=== PATIENT | female | born 1945 | race Caucasian/White ===

== ENCOUNTER 2017-03-24 17:46 | Emergency (ER) | payer MEDICARE ==
[~2017-03-24] VITALS: Ht 165.1 cm; Wt 44.5 kg
[~2017-03-24 17:46] MED LIST: ALPR0.5T PO; ATOR40TA59 PO; BUSPAR; CLOP75TA PO; COLE5PAC PO; COLESTIPOL PO; ESCITALOPRAM OX10 MG PO; HYDR-2758 PO; HYDR-2762 PO; LIPA1CAP12 PO; LIPA1CAP8 PO; NICO1PAT21 TP; PANT40TA5 PO; PROAIR HFA8.5 GM IH; SERT50TA PO; TIOT18CA IH
[2017-03-24] MEDS: fentaNYL PF VIAL 100 MCG/2 ML VIAL IV PRN ×3 (18:53→21:38)
[2017-03-24] MEDS ORDERED: IV NORMAL SALINE 500ML BAG 500 ML IV ONE (19:00)
[2017-03-24 19:06] LABS: BASO # 0.1 x10^3/uL (0.0-0.2); BASO % 1 % (0-3); EOS % 1 % (0-3); HEMATOCRIT 44.9 % (36.0-47.0); LYMPH # 1.8 x10^3/uL (1.0-4.8); LYMPH % 18 % (24-48); MEAN CORPUSCULAR HEMOGLOBIN 33 pg (25-35); MEAN CORPUSCULAR HGB CONC 34 g/dL (31-37); MEAN CORPUSCULAR VOLUME 98 fL (79-100); MONO % 5 % (0-9); NEUT % 75 % (31-73); PLATELET COUNT 274 x10^3/uL (140-400); RED BLOOD COUNT 4.56 x10^6/uL (3.50-5.40); RED CELL DISTRIBUTION WIDTH 13.6 % (11.5-14.5); WHITE BLOOD COUNT 10.4 x10^3/uL (4.0-11.0)
[2017-03-24] MEDS ORDERED: ONDANSETRON PF 4 MG/2 ML VIAL. IV ONE (19:15)
[2017-03-24 19:27] LABS: BILIRUBIN,URINE NEGATIVE (NEG); GLUCOSE,URINE NEGATIVE (NEG); NITRITE,URINE NEGATIVE (NEG); PROTEIN,URINE NEGATIVE (NEG-TRACE); UROBILINOGEN,URINE 0.2 mg/dL (0.2 mg/dL)
[2017-03-24 19:38] LABS: CALCIUM 9.3 mg/dL (8.5-10.1); CREATININE 1.2 mg/dL (0.6-1.0)
[2017-03-24 19:39] LABS: BACTERIA,URINE 0 /HPF (0-FEW); RBC,URINE 20-40 /HPF (0-2); SQUAMOUS EPITHELIAL CELL,UR OCC /LPF; WBC,URINE OCC /HPF (0-4)
[2017-03-24 19:49] LABS: ALBUMIN 4.5 g/dL (3.4-5.0); ALBUMIN/GLOBULIN RATIO 1.5 (1.0-1.7); TOTAL BILIRUBIN 0.6 mg/dL (0.2-1.0); TOTAL PROTEIN 7.6 g/dL (6.4-8.2)
--- NOTE | 2017-03-24 20:51 | RAD ---
EXAM: CT ABDOMEN/PELVIS WITHOUT CONTRAST. HISTORY: Right upper quadrant pain, nausea and vomiting. History of pancreatitis. TECHNIQUE: Computed tomography of the abdomen and pelvis was performed without intravenous contrast. COMPARISON: April 16, 2016. FINDINGS: Lung windows through the visualized portions of the bases reveal severe centrilobular emphysema. Bone windows reveal no suspicious lesions. There is a mild inferior endplate compression deformity at L4, likely chronic. The gallbladder is surgically absent. There is moderate intra and extrahepatic biliary dilatation. The common duct measures 1.1 cm. There is no clear distal obstructing lesion and this is stable. The pancreas is unremarkable without contrast. There is a small cyst in hepatic segment 4B. The spleen and adrenal glands are unremarkable. A small dense nodule laterally in the left kidney measures 4 mm and is likely a proteinaceous/hemorrhagic cyst. This is unchanged. Another small cyst at the right lower pole measures 1.6 cm. There is no hydronephrosis. There are diffuse severe atherosclerotic calcifications. There is infrarenal abdominal aortic ectasia without aneurysm. Maximum diameter is 2.2 cm. Stool throughout the colon is consistent with constipation. There is no obstruction. There are no pathologically enlarged lymph nodes. The uterus is either atrophic or surgically absent. There are changes of pelvic floor relaxation. IMPRESSION: 1. Stable moderate intra and extrahepatic biliary dilatation status post cholecystectomy. Correlate for cholestasis to assess significance. 2. Correlate for constipation. 3. Changes of pelvic floor relaxation. 4. Severe centrilobular emphysema. *One or more of the following individualized dose reduction techniques were utilized for this examination: 1. Automated exposure control. 2. Adjustment of the mA and/or kV according to patient size. 3. Use of iterative reconstruction technique. Electronically signed by: Any Baumann MD (03/24/2017 8:48 PM) [facility]
--- NOTE | 2017-03-24 21:39 | RAD ---
Ultrasound of the right lower extremity arterial system HISTORY: Right leg pain. TECHNIQUE: Grayscale, color Doppler and duplex analysis. FINDINGS: All velocity measurements are in centimeters per second. Right common femoral artery measures 170 and deep femoral artery 74. Superficial femoral artery ranges from 113 through 131. Popliteal artery is 50. The runoff arteries range from 32-55. Biphasic waveforms are seen throughout. There is mild scattered plaquing. No high-grade luminal narrowing or occlusion is identified. IMPRESSION: Findings are compatible with at least mild atherosclerotic disease, but without evidence of occlusion or high-grade stenosis. Electronically signed by: Jose C Cowan MD (03/24/2017 9:36 PM) [place] [id number]
[2017-03-24] MEDS ORDERED: POLY17PO29 PO (22:25)
--- NOTE | 2017-03-24 22:26 | PHYS DOC ---
Past Medical History Past Medical History: Anxiety, Cancer, COPD, Pancreatitis Additional Past Medical Histor: colon spasms, uterine cancer Past Surgical History: Appendectomy, Cholecystectomy, Hysterectomy, Tonsillectomy Additional Past Surgical Histo: hemorrhoidectomy, left leg surgery Alcohol Use: None Drug Use: None Adult General Chief Complaint Chief Complaint: ABDOMINAL PAIN HPI HPI Patient is a 71 year old female who presents with abdominal pain & vomiting. Reports onset of symptoms today with upper abdominal pain & 4 episodes of vomiting. Denies fevers/chills, hematemesis, diarrhea, constipation, hematochezia/melena, dysuria/hematuria. She denies chest pain or shortness of breath. Also reports burning pain to her RLE with history of arterial stenting. She denies cold foot, numbness/weakness. History of pancreatitis & states this feels similar. History of cholecystectomy, appendectomy, hysterectomy. Denies EtOH. Review of Systems Review of Systems Constitutional: Denies fever or chills HENT: Denies nasal congestion or sore throat Respiratory: Denies cough or shortness of breath Cardiovascular: Denies chest pain or edema GI: Reports abdominal pain, nausea, vomiting, denies bloody stools or diarrhea : Denies dysuria or hematuria Musculoskeletal: Denies back pain, reports lower extremity pain. Integument: Denies rash or skin lesions Neurologic: Denies headache, focal weakness or sensory changes Current Medications Current Medications Current Medications Medications (Trade) Dose Ordered Sig/Tamiko Start Time Stop Time Status Last Admin Dose Admin Fentanyl Citrate (Fentanyl 2ml Vial) 50 mcg PRN Q15MIN PRN 03/24/17 18:45 03/24/17 23:00 DC 03/24/17 21:38 50 MCG Ondansetron HCl (Zofran) 4 mg 1X ONCE 03/24/17 19:15 03/24/17 19:25 DC 03/24/17 18:52 4 MG Sodium Chloride 500 ml @ 0 mls/hr 1X ONCE 03/24/17 19:00 03/24/17 19:25 DC 03/24/17 18:54 999 MLS/HR Allergies Allergies Allergies Coded Allergies Type Severity Reaction Last Updated Verified No Known Drug Allergies 10/06/14 No Physical Exam Physical Exam Constitutional: thin, frail, no acute distress, non-toxic appearance. HENT: Normocephalic, atraumatic, bilateral external ears normal, oropharynx dry , nose normal. Eyes: conjunctiva normal, no discharge. Neck: supple, no stridor. Cardiovascular: RRR, no murmurs, no edema. Lungs & Thorax: LCTAB, no wheezing, no respiratory distress. Abdomen: soft, epigastric tenderness without rebound/guarding, mild diffuse tenderness, no masses or pulsatile masses, nondistended. Skin: Warm, dry, no erythema, no rash. Back: No tenderness. Extremities: No tenderness, no edema. RLE no swelling/deformity, no focal bony tenderness, intact ROM to hip, knee, ankle, foot warm with cap refill < 2 sec, dp/pt palpable, sensation intact to foot. Neurologic: Alert and oriented X 3, no focal deficits noted. Psychologic: Affect normal, judgement normal, mood normal. Current Patient Data Vital Signs Vital Signs Date Time Temp Pulse Resp B/P (MAP) Pulse Ox O2 Delivery O2 Flow Rate FiO2 03/24/17 22:45 73 20 145/67 (93) 94 Room Air 03/24/17 18:30 98.2 98.2 Lab Values Laboratory Tests Test 03/24/17 18:40 03/24/17 19:15 White Blood Count 10.4 x10^3/uL (4.0-11.0) Red Blood Count 4.56 x10^6/uL (3.50-5.40) Hemoglobin 15.0 g/dL (12.0-15.5) Hematocrit 44.9 % (36.0-47.0) Mean Corpuscular Volume 98 fL (79-100) Mean Corpuscular Hemoglobin 33 pg (25-35) Mean Corpuscular Hemoglobin Concent 34 g/dL (31-37) Red Cell Distribution Width 13.6 % (11.5-14.5) Platelet Count 274 x10^3/uL (140-400) Neutrophils (%) (Auto) 75 % (31-73) H Lymphocytes (%) (Auto) 18 % (24-48) L Monocytes (%) (Auto) 5 % (0-9) Eosinophils (%) (Auto) 1 % (0-3) Basophils (%) (Auto) 1 % (0-3) Neutrophils # (Auto) 7.8 x10^3uL (1.8-7.7) H Lymphocytes # (Auto) 1.8 x10^3/uL (1.0-4.8) Monocytes # (Auto) 0.5 x10^3/uL (0.0-1.1) Eosinophils # (Auto) 0.1 x10^3/uL (0.0-0.7) Basophils # (Auto) 0.1 x10^3/uL (0.0-0.2) Sodium Level 143 mmol/L (136-145) Potassium Level 4.0 mmol/L (3.5-5.1) Chloride Level 102 mmol/L (98-107) Carbon Dioxide Level 28 mmol/L (21-32) Anion Gap 13 (6-14) Blood Urea Nitrogen 21 mg/dL (7-20) H Creatinine 1.2 mg/dL (0.6-1.0) H Estimated GFR (Cockcroft-Gault) 44.0 BUN/Creatinine Ratio 18 (6-20) Glucose Level 109 mg/dL (70-99) H Calcium Level 9.3 mg/dL (8.5-10.1) Total Bilirubin 0.6 mg/dL (0.2-1.0) Aspartate Amino Transferase (AST) 19 U/L (15-37) Alanine Aminotransferase (ALT) 21 U/L (14-59) Alkaline Phosphatase 73 U/L (46-116) Troponin I Quantitative 0.026 ng/mL (0.000-0.055) Total Protein 7.6 g/dL (6.4-8.2) Albumin 4.5 g/dL (3.4-5.0) Albumin/Globulin Ratio 1.5 (1.0-1.7) Lipase 210 U/L (73-393) Urine Collection Type Unknown Urine Color Yellow Urine Clarity Clear Urine pH 6.0 Urine Specific [place] 1.025 Urine Protein Negative mg/dL (NEG-TRACE) Urine Glucose (UA) Negative mg/dL (NEG) Urine Ketones (Stick) Trace mg/dL (NEG) Urine Blood Moderate (NEG) Urine Nitrite Negative (NEG) Urine Bilirubin Negative (NEG) Urine Urobilinogen Dipstick 0.2 mg/dL (0.2 mg/dL) Urine Leukocyte Esterase Negative (NEG) Urine RBC 20-40 /HPF (0-2) Urine WBC Occ /HPF (0-4) Urine Squamous Epithelial Cells Occ /LPF Urine Bacteria 0 /HPF (0-FEW) Urine Hyaline Casts Occasional /HPF Urine Mucus Mod /LPF Laboratory Tests 03/24/17 18:40 Laboratory Tests 03/24/17 18:40 EKG EKG interpreted by me: NSR rate 66, no acute ST/T wave changes, normal intervals, no ectopy.[] Radiology/Procedures Radiology/Procedures PROCEDURE: DUPLEX LOWER EX ARTERIAL RIGHT Ultrasound of the right lower extremity arterial system HISTORY: Right leg pain. TECHNIQUE: Grayscale, color Doppler and duplex analysis. FINDINGS: All velocity measurements are in centimeters per second. Right common femoral artery measures 170 and deep femoral artery 74. Superficial femoral artery ranges from 113 through 131. Popliteal artery is 50. The runoff arteries range from 32-55. Biphasic waveforms are seen throughout. There is mild scattered plaquing. No high-grade luminal narrowing or occlusion is identified. IMPRESSION: Findings are compatible with at least mild atherosclerotic disease, but without evidence of occlusion or high-grade stenosis. Electronically signed by: Jose C Cowan MD (03/24/2017 9:36 PM) [facility] DICTATED and SIGNED BY: JOSE C COWAN MD DATE: 03/24/172131[] Course & Med Decision Making Course & Med Decision Making Pertinent Labs and Imaging studies reviewed. (See chart for details) The patient presents with abdominal pain, vomiting, lower extremity pain. Gave IV fluids, antiemetic, pain medication. She felt better & requested discharge home. Her labs showed no obvious acute abnormality. CT showed constipation & chronic biliary changes. Discussed results extensively, due to severity of her symptoms at time of presentation & advanced age, I offered admission to evaluate for possible serious cause of her symptoms not identified on initial workup. She stated she felt much better & requested discharge home. She does not want to be admitted, understands possible risk of undiagnosed condition or worsening condition. She understands risks & still wants to go home, plans to call PCP in the morning for follow up appointment. Gave prescriptions for zofran & miralax. Recommend rest, PO hydration with small sips of clear liquids , come back for high fever, severe pain, uncontrolled vomiitng, any otherwise worsening condition. Discharged home in stable & improved condition. [] Dragon Disclaimer Dragon Disclaimer This electronic medical record was generated, in whole or in part, using a voice recognition dictation system. Departure Departure Impression: Primary Impression: Abdominal pain Additional Impressions: Constipation Nausea & vomiting Lower extremity pain Disposition: HOME, SELF-CARE Condition: STABLE Referrals: GEETA REES Jr, MD (PCP) Patient Instructions: Abdominal Pain, [id number], Constipation, Adult, Easy- to-Read Additional Instructions: You were seen in the emergency department today for abdominal pain. Your CT shows constipation. Please take the prescribed medication to have a bowel movement. Follow-up as soon as possible with primary care physician. Return to the emergency department for high fever, severe pain, uncontrolled vomiting, otherwise worsening condition. Scripts Polyethylene Glycol 3350 (MIRALAX) 17 Gm Powd.pack 1 PACKET PO DAILY, #2 PACKET 1 Refill Prov: ABILIO NELSON MD 03/24/17 Problem Qualifiers ABILIO NELSON MD Mar 24, 2017 22:25
[2017-03-24 22:45] VITALS: BP 145/67
--- NOTE | 2017-03-25 06:07 | EKG ---
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
== END 2017-03-24 22:55 | disposition home or self-care (01) ==
LOC: ER 17:46
DX: K59.09 Other constipation (principal); M79.604 Pain in right leg; F41.9 Anxiety disorder, unspecified; J44.9 Chronic obstructive pulmonary disease, unspecified; Z90.49 Acquired absence of other specified parts of digestive tract; Z90.710 Acquired absence of both cervix and uterus
CPT/HCPCS: 36415; 74176; 80053; 81001; 83690; 84484; 85027; 93005; 93926; 96374; 96375; 96376; 99285; J2405; J3010; J7040

== ENCOUNTER 2017-06-01 15:52 | Emergency (ER) | payer MEDICARE ==
[~2017-06-01] VITALS: Ht 165.1 cm; Wt 40.8 kg
[~2017-06-01 15:52] MED LIST changes: +POLY17PO29 PO
--- NOTE | 2017-06-01 16:11 | PHYS DOC ---
Past Medical History Past Medical History: Anxiety, Cancer, COPD, Pancreatitis Additional Past Medical Histor: colon spasms, uterine cancer Past Surgical History: Appendectomy, Cholecystectomy, Hysterectomy, Tonsillectomy Additional Past Surgical Histo: hemorrhoidectomy, left leg surgery Alcohol Use: None Drug Use: None Adult General Chief Complaint Chief Complaint: ABDOMINAL PAIN HPI HPI Patient is a 71 year old female who presents with nausea, diarrhea, abdominal pain. She states this feels just like her pancreatitis and she's had in the past. She states this started about a week ago and today got severe. She states the pain is constant it is sharp and intense in her left abdominal area. She denies anything makes it better or worse. She states she's been taking hydrocodone without any relief. Review of Systems Review of Systems Constitutional: Denies fever or chills Eyes: Denies change in visual acuity, redness, or eye pain HENT: Denies nasal congestion or sore throat Respiratory: Denies cough or shortness of breath Cardiovascular: No additional information not addressed in HPI GI: Positive for abdominal pain, nausea, and diarrhea, denies vomiting, bloody stools : Denies dysuria or hematuria Musculoskeletal: Denies back pain or joint pain Integument: Denies rash or skin lesions Neurologic: Denies headache, focal weakness or sensory changes Endocrine: Denies polyuria or polydipsia Current Medications Current Medications Current Medications Medications (Trade) Dose Ordered Sig/Tamiko Start Time Stop Time Status Last Admin Dose Admin Fentanyl Citrate (Fentanyl 2ml Vial) 25 mcg PRN Q15MIN PRN 06/01/17 16:15 06/02/17 16:14 06/01/17 18:30 25 MCG Info (Do NOT chart on this entry -- for MONITORING) 1 each PRN DAILY PRN 06/01/17 18:00 06/03/17 17:59 Iohexol (Omnipaque 300 Mg/ml) 75 ml 1X ONCE 06/01/17 18:00 06/01/17 18:01 DC 06/01/17 18:01 60 ML Levofloxacin/ Dextrose 100 ml @ 100 mls/hr 1X ONCE 06/01/17 19:00 06/01/17 19:59 DC 06/01/17 19:29 100 MLS/HR Metronidazole 100 ml @ 100 mls/hr 1X ONCE 06/01/17 19:00 06/01/17 19:59 DC 06/01/17 19:29 100 MLS/HR Ondansetron HCl (Zofran) 4 mg 1X ONCE 06/01/17 17:15 06/01/17 17:16 DC 06/01/17 17:22 4 MG Sodium Chloride 500 ml @ 1,000 mls/hr Q30M 06/01/17 16:13 06/01/17 16:42 DC 06/01/17 17:21 1,000 MLS/HR Allergies Allergies Allergies Coded Allergies Type Severity Reaction Last Updated Verified No Known Drug Allergies 10/06/14 No Physical Exam Physical Exam Constitutional: Well developed, well nourished, no acute distress, non-toxic appearance. [] HENT: Normocephalic, atraumatic, bilateral external ears normal, oropharynx moist, no oral exudates, nose normal. [] Eyes: PERRLA, EOMI, conjunctiva normal, no discharge. [] Neck: Normal range of motion, no tenderness, supple, no stridor. [] Cardiovascular:Heart rate regular rhythm, no murmur [] Lungs & Thorax: Bilateral breath sounds clear to auscultation [] Abdomen: Bowel sounds normal, soft, tender palpation in the left upper quadrant and right lower quadrant, voluntary guarding noted, no masses, no pulsatile masses. [] Skin: Warm, dry, no erythema, no rash. [] Back: No tenderness, no CVA tenderness. [] Extremities: No tenderness, no cyanosis, no clubbing, ROM intact, no edema. [] Neurologic: Alert and oriented X 3, normal motor function, normal sensory function, no focal deficits noted. [] Psychologic: Affect normal, judgement normal, mood normal. [] Current Patient Data Vital Signs Vital Signs Date Time Temp Pulse Resp B/P (MAP) Pulse Ox O2 Delivery O2 Flow Rate FiO2 06/01/17 19:59 66 32 95/47 (63) 94 Room Air 06/01/17 16:00 98.3 98.3 Lab Values Laboratory Tests Test 06/01/17 17:12 06/01/17 19:00 White Blood Count 8.7 x10^3/uL (4.0-11.0) Red Blood Count 4.27 x10^6/uL (3.50-5.40) Hemoglobin 14.2 g/dL (12.0-15.5) Hematocrit 42.2 % (36.0-47.0) Mean Corpuscular Volume 99 fL (79-100) Mean Corpuscular Hemoglobin 33 pg (25-35) Mean Corpuscular Hemoglobin Concent 34 g/dL (31-37) Red Cell Distribution Width 13.0 % (11.5-14.5) Platelet Count 256 x10^3/uL (140-400) Neutrophils (%) (Auto) 67 % (31-73) Lymphocytes (%) (Auto) 25 % (24-48) Monocytes (%) (Auto) 6 % (0-9) Eosinophils (%) (Auto) 1 % (0-3) Basophils (%) (Auto) 1 % (0-3) Neutrophils # (Auto) 5.8 x10^3uL (1.8-7.7) Lymphocytes # (Auto) 2.2 x10^3/uL (1.0-4.8) Monocytes # (Auto) 0.5 x10^3/uL (0.0-1.1) Eosinophils # (Auto) 0.1 x10^3/uL (0.0-0.7) Basophils # (Auto) 0.1 x10^3/uL (0.0-0.2) Prothrombin Time 11.8 SEC (11.7-14.0) Prothrombin Time INR 0.9 (0.8-1.1) PTT 32 SEC (24-38) Sodium Level 140 mmol/L (136-145) Potassium Level 3.9 mmol/L (3.5-5.1) Chloride Level 103 mmol/L (98-107) Carbon Dioxide Level 31 mmol/L (21-32) Anion Gap 6 (6-14) Blood Urea Nitrogen 15 mg/dL (7-20) Creatinine 1.0 mg/dL (0.6-1.0) Estimated GFR (Cockcroft-Gault) 54.3 Glucose Level 95 mg/dL (70-99) Calcium Level 9.2 mg/dL (8.5-10.1) Total Bilirubin 0.4 mg/dL (0.2-1.0) Direct Bilirubin 0.1 mg/dL (0.0-0.2) Aspartate Amino Transferase (AST) 18 U/L (15-37) Alanine Aminotransferase (ALT) 18 U/L (14-59) Alkaline Phosphatase 68 U/L (46-116) Creatine Kinase 62 U/L (26-192) Creatine Kinase MB (Mass) 0.5 ng/mL (0.0-3.6) Creatine Kinase MB Relative Index 0.8 % (0-4) Total Protein 7.4 g/dL (6.4-8.2) Albumin 4.0 g/dL (3.4-5.0) Lipase 313 U/L (73-393) Urine Collection Type Unknown Urine Color Yellow Urine Clarity Clear Urine pH 6.5 Urine Specific [place] 1.025 Urine Protein Negative mg/dL (NEG-TRACE) Urine Glucose (UA) Negative mg/dL (NEG) Urine Ketones (Stick) Negative mg/dL (NEG) Urine Blood Moderate (NEG) Urine Nitrite Negative (NEG) Urine Bilirubin Negative (NEG) Urine Urobilinogen Dipstick 0.2 mg/dL (0.2 mg/dL) Urine Leukocyte Esterase Negative (NEG) Urine RBC 20-40 /HPF (0-2) Urine WBC Occ /HPF (0-4) Urine Squamous Epithelial Cells Occ /LPF Urine Bacteria 0 /HPF (0-FEW) Urine Hyaline Casts Few /HPF Urine Opiates Screen Pos (NEG) Urine Methadone Screen Neg (NEG) Urine Barbiturates Neg (NEG) Urine Phencyclidine Screen Neg (NEG) Urine Amphetamine/Methamphetamine Neg (NEG) Urine Benzodiazepines Screen Neg (NEG) Urine Cocaine Screen Neg (NEG) Urine Cannabinoids Screen Neg (NEG) Urine Ethyl Alcohol Neg (NEG) Laboratory Tests 06/01/17 17:12 Laboratory Tests 06/01/17 17:12 EKG EKG [] Radiology/Procedures Radiology/Procedures [facility] [address] [place] [address] IMAGING REPORT Signed PATIENT: CLAUDAI BAUTISTA ACCOUNT: [id number] : 1945 LOCATION: ER AGE: 71 SEX: F EXAM STATUS: REG ER ORD. PHYSICIAN: ANTONIO REARDON MD REASON: abd pain PROCEDURE: CT ABD PELV W/ IV CONTRST ONLY CT SCAN OF THE ABDOMEN AND PELVIS WITH IV CONTRAST. History: Right lower quadrant pain and nausea Comparison:March 24, 2017. Procedure: Contiguous axial images of the abdomen and pelvis were performed after the administration of 60 cc of Omnipaque 300 IV contrast and without oral contrast. CT Abdomen with contrast: Findings: Liver: The intrahepatic and extra hepatic biliary tree are mildly dilated, seen previously Spleen: Unremarkable Pancreas: Unremarkable Adrenal Glands: Unremarkable Kidneys: Small cysts There is no mass or lymphadenopathy. There is no free air. There is no free fluid. There is calcification of the aorta and great vessels without aneurysm. There is mild wall thickening of the splenic flexure of the colon without surrounding inflammation. CT Pelvis with Contrast: Findings: The urinary bladder appears normal. There is no free fluid. There is no lymphadenopathy. The appendix is not clearly identified although there is a small caliber loop of bowel medial to the cecum which could be a normal appendix. There is moderate wall thickening of the rectum. Impression: 1. Moderate wall thickening of the rectum could be secondary to colitis. An adenocarcinoma is not excluded. 2. Mild wall thickening of the splenic flexure of the colon is nonspecific and could be secondary to spasm or colitis. PQRS Compliance Statement: One or more of the following individualized dose reduction techniques were utilized for this examination: 1. Automated exposure control 2. Adjustment of the mA and/or kV according to patient size 3. Use of iterative reconstruction technique Electronically signed by: Dang Logan III, MD (06/01/2017 6:24 PM) [facility] DICTATED and SIGNED BY: DANG LOGAN III, MD DATE: 06/01/17 1814 CC: ANTONIO REARDON MD; GEETA REES Jr, MD ~ Impressions: Colitis Course & Med Decision Making Course & Med Decision Making Pertinent Labs and Imaging studies reviewed. (See chart for details) Patient's pain is under control and she states she feels better. CT scan shows colitis. We'll start with Levaquin and Flagyl the patient is requesting discharged home. She is to follow-up with primary care physician and outpatient and follow-up with GI. She's being discharged with Cipro Flagyl for the next 7 days. Being discharged with 10 tablets of [place] to be used when necessary pain. She is instructed to use these cautiously as it can hide her pain and delay her returning to ER. She states she understands not to overdo the pain meds. Return precautions given. She is agreeable plan being discharged in stable condition at this time. Dragon Disclaimer Dragon Disclaimer This electronic medical record was generated, in whole or in part, using a voice recognition dictation system. Departure Departure Impression: Primary Impression: Abdominal pain Disposition: HOME, SELF-CARE Condition: STABLE Referrals: GEETA REES Jr, MD (PCP) LIZANDRO NSYDER MD Patient Instructions: Abdominal Pain Additional Instructions: You'll need to follow-up with GI. Your being discharged home with antibiotics for the next 7 days. You can also take pain meds which are narcotic in nature. Please don't drink alcohol or drive or taking these medicines. If you drink alcohol with these antibiotics and they will make you sick. You should be careful with pain meds as it can hide the fact that you getting worse. She developed fevers, worsening abdominal pain, nausea or other concerns please return back to emergency department. Scripts Hydrocodone/Apap 5-325 (NORCO 5-325 TABLET) 1 Each Tablet 1-2 TAB PO PRN Q6HRS Y for PAIN, #10 TAB 0 Refills Prov: ANTONIO REARDON MD 06/01/17 Metronidazole (FLAGYL) 500 Mg Tablet 1 TAB PO BID, #14 TAB Prov: ANTONIO REARDON MD 06/01/17 Ciprofloxacin Hcl (CIPRO) 500 Mg Tablet 1 TAB PO BID, #14 TAB Prov: ANTONIO REARDON MD 06/01/17 Problem Qualifiers Primary Impression: Abdominal pain Abdominal location: lower abdomen, unspecified Qualified Codes: R10.30 - Lower abdominal pain, unspecified ANTONIO REARDON MD Jun 01, 2017 16:11
[2017-06-01] MEDS ORDERED: IV NORMAL SALINE 1000ML BAG 500 ML IV SCH (16:13)
[2017-06-01] MEDS ORDERED: ONDANSETRON PF 4 MG/2 ML VIAL. IV ONE (17:15)
[2017-06-01 17:19] LABS: BASO # 0.1 x10^3/uL (0.0-0.2); BASO % 1 % (0-3); EOS % 1 % (0-3); HEMATOCRIT 42.2 % (36.0-47.0); HEMOGLOBIN 14.2 g/dL (12.0-15.5); LYMPH # 2.2 x10^3/uL (1.0-4.8); LYMPH % 25 % (24-48); MEAN CORPUSCULAR HEMOGLOBIN 33 pg (25-35); MEAN CORPUSCULAR HGB CONC 34 g/dL (31-37); MEAN CORPUSCULAR VOLUME 99 fL (79-100); MONO % 6 % (0-9); NEUT % 67 % (31-73); PLATELET COUNT 256 x10^3/uL (140-400); RED BLOOD COUNT 4.27 x10^6/uL (3.50-5.40); WHITE BLOOD COUNT 8.7 x10^3/uL (4.0-11.0)
[2017-06-01] MEDS: fentaNYL PF VIAL 100 MCG/2 ML VIAL IV PRN ×2 (17:23→18:30)
[2017-06-01 17:28] LABS: INR 0.9 (0.8-1.1); PROTHROMBIN TIME PATIENT 11.8 SEC (11.7-14.0)
[2017-06-01 17:32] LABS: CALCIUM 9.2 mg/dL (8.5-10.1); GFR 54.3; POTASSIUM 3.9 mmol/L (3.5-5.1)
[2017-06-01 17:36] LABS: DIRECT BILIRUBIN 0.1 mg/dL (0.0-0.2); TOTAL BILIRUBIN 0.4 mg/dL (0.2-1.0); TOTAL PROTEIN 7.4 g/dL (6.4-8.2)
[2017-06-01 17:43] LABS: CKMB MASS 0.5 ng/mL (0.0-3.6)
[2017-06-01] MEDS ORDERED: IOHEXOL 300 MG/ML 75 ML VIAL IV ONE (18:00)
[2017-06-01] MEDS ORDERED: CONTRAST GIVEN MC PRN (18:00)
--- NOTE | 2017-06-01 18:28 | RAD ---
CT SCAN OF THE ABDOMEN AND PELVIS WITH IV CONTRAST. History: Right lower quadrant pain and nausea Comparison:March 24, 2017. Procedure: Contiguous axial images of the abdomen and pelvis were performed after the administration of 60 cc of Omnipaque 300 IV contrast and without oral contrast. CT Abdomen with contrast: Findings: Liver: The intrahepatic and extra hepatic biliary tree are mildly dilated, seen previously Spleen: Unremarkable Pancreas: Unremarkable Adrenal Glands: Unremarkable Kidneys: Small cysts There is no mass or lymphadenopathy. There is no free air. There is no free fluid. There is calcification of the aorta and great vessels without aneurysm. There is mild wall thickening of the splenic flexure of the colon without surrounding inflammation. CT Pelvis with Contrast: Findings: The urinary bladder appears normal. There is no free fluid. There is no lymphadenopathy. The appendix is not clearly identified although there is a small caliber loop of bowel medial to the cecum which could be a normal appendix. There is moderate wall thickening of the rectum. Impression: 1. Moderate wall thickening of the rectum could be secondary to colitis. An adenocarcinoma is not excluded. 2. Mild wall thickening of the splenic flexure of the colon is nonspecific and could be secondary to spasm or colitis. PQRS Compliance Statement: One or more of the following individualized dose reduction techniques were utilized for this examination: 1. Automated exposure control 2. Adjustment of the mA and/or kV according to patient size 3. Use of iterative reconstruction technique Electronically signed by: Pedro Hilario III, MD (06/01/2017 6:24 PM) [id number]
[2017-06-01 19:27] LABS: BILIRUBIN,URINE NEGATIVE (NEG); GLUCOSE,URINE NEGATIVE (NEG); NITRITE,URINE NEGATIVE (NEG); PH,URINE 6.5; PROTEIN,URINE NEGATIVE (NEG-TRACE); UROBILINOGEN,URINE 0.2 mg/dL (0.2 mg/dL)
[2017-06-01] MEDS ORDERED: METR500T PO (19:28)
[2017-06-01] MEDS ORDERED: HYDR-971 PO (19:28)
[2017-06-01] MEDS ORDERED: CIPR500T94 PO (19:28)
[2017-06-01 19:29] LABS: BARBITURATES NEG (NEG); BENZODIAZEPINES NEG (NEG); CANNABINOIDS NEG (NEG); COCAINE NEG (NEG); METHADONE NEG (NEG); OPIATES POS (NEG); PHENCYCLIDINE NEG (NEG)
[2017-06-01 19:48] LABS: BACTERIA,URINE 0 /HPF (0-FEW); RBC,URINE 20-40 /HPF (0-2); SQUAMOUS EPITHELIAL CELL,UR OCC /LPF; WBC,URINE OCC /HPF (0-4)
[2017-06-01 20:30] VITALS: BP 91/49
== END 2017-06-01 20:44 | disposition home or self-care (01) ==
LOC: ER 15:52
DX: R10.9 Unspecified abdominal pain (principal); R11.0 Nausea; J44.9 Chronic obstructive pulmonary disease, unspecified; R19.7 Diarrhea, unspecified; Z90.49 Acquired absence of other specified parts of digestive tract; Z90.710 Acquired absence of both cervix and uterus
CPT/HCPCS: 36415; 74177; 80048; 80076; 80307; 81001; 82553; 83690; 85025; 85610; 85730; 96361; 96365; 96368; 96375; 99285; J1956; J2405; J3010; J3490; J7030; Q9967; G0479

== ENCOUNTER 2017-06-06 11:24 | Inpatient (IN) | payer MEDICARE ==
[~2017-06-06] VITALS: Ht 165.1 cm; Wt 40.8 kg
[~2017-06-06 11:24] MED LIST changes: +CIPR500T94 PO; +HYDR-971 PO; +METR500T PO
[2017-06-06] MEDS ORDERED: IV NORMAL SALINE 1000ML BAG 1,000 ML IV ONE (12:00)
[2017-06-06] MEDS ORDERED: ONDANSETRON PF 4 MG/2 ML VIAL. IV ONE (12:00)
[2017-06-06] MEDS: fentaNYL PF VIAL 100 MCG/2 ML VIAL IV PRN ×3 (12:07→13:07)
[2017-06-06 12:11] LABS: BILIRUBIN,URINE NEGATIVE (NEG); GLUCOSE,URINE NEGATIVE (NEG); NITRITE,URINE NEGATIVE (NEG); PH,URINE 6.5; PROTEIN,URINE NEGATIVE (NEG-TRACE); UROBILINOGEN,URINE 0.2 mg/dL (0.2 mg/dL)
[2017-06-06 12:12] LABS: BASO # 0.1 x10^3/uL (0.0-0.2); BASO % 1 % (0-3); EOS % 2 % (0-3); HEMATOCRIT 46.2 % (36.0-47.0); HEMOGLOBIN 15.4 g/dL (12.0-15.5); LYMPH # 1.9 x10^3/uL (1.0-4.8); LYMPH % 18 % (24-48); MEAN CORPUSCULAR HEMOGLOBIN 33 pg (25-35); MEAN CORPUSCULAR HGB CONC 33 g/dL (31-37); MEAN CORPUSCULAR VOLUME 100 fL (79-100); MONO % 6 % (0-9); NEUT % 72 % (31-73); PLATELET COUNT 286 x10^3/uL (140-400); RED BLOOD COUNT 4.64 x10^6/uL (3.50-5.40); RED CELL DISTRIBUTION WIDTH 13.5 % (11.5-14.5); WHITE BLOOD COUNT 10.6 x10^3/uL (4.0-11.0)
[2017-06-06 12:16] LABS: CALCIUM 9.9 mg/dL (8.5-10.1); CREATININE 1.1 mg/dL (0.6-1.0); GFR 48.7; POTASSIUM 3.8 mmol/L (3.5-5.1)
[2017-06-06 12:21] LABS: SQUAMOUS EPITHELIAL CELL,UR OCC /LPF; WBC,URINE OCC /HPF (0-4)
[2017-06-06 12:22] LABS: BACTERIA,URINE 0 /HPF (0-FEW); RBC,URINE >40 /HPF (0-2)
[2017-06-06 12:22] LABS: ALBUMIN 4.4 g/dL (3.4-5.0); ALBUMIN/GLOBULIN RATIO 1.3 (1.0-1.7); TOTAL BILIRUBIN 0.5 mg/dL (0.2-1.0); TOTAL PROTEIN 7.8 g/dL (6.4-8.2)
[2017-06-06] MEDS ORDERED: CONTRAST GIVEN MC PRN ×2 (12:30→15:00)
[2017-06-06] MEDS ORDERED: IOHEXOL 300 MG/ML 75 ML VIAL IV ONE (12:30)
--- NOTE | 2017-06-06 12:40 | EKG ---
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
[2017-06-06] MEDS ORDERED: ONDANSETRON PF 4 MG/2 ML VIAL. IV PRN ×2 (13:45→14:15)
[2017-06-06] MEDS ORDERED: CIPROFLOXACIN 400MG PREMIX 200 ML IV ONE (14:00)
--- NOTE | 2017-06-06 14:10 | PDOC2 ---
YANY ROSS 06/06/17 1410: GI CONSULT Reason For Consult: Abd pain HPI: HPI: 71 y/o female well-known to our service, discussed prior to admission w/ ER physician. PMH is significant for pancreatitis s/p cholecystectomy (w/ MRCP in 10/2015 showing no definite obstructive process or choledocholithiasis) and chronic mesenteric ischemia (w/ CTA abdomen in 10/2015 showing moderate-severe atherosclerosis in the aorta and narrowing in celiac artery and superior mesenteric artery) s/p celiac stenting in 10/2015. Diarrhea, weight loss, upper abdominal discomfort, and nausea have been improved w/ Creon 36,000u 2 pills TIC AC and cholestyramine powder 2 packets QHS. Last EGD and colonoscopy in 2012 - EGD was normal, random duodenal biopsy showed focal duodenitis and colonoscopy showed internal hemorrhoids and random biopsies were negative for pathology. Admitted this time w/ severe abd pain and vomiting. Was in the ER a few days ago, CT as below w/ possible wall thickening in rectum and hepatic flexure. Came back with worsening symptoms, uncontrolled pain. Started on IV atbx. PMH: PMH: HTN, HLD, COPD, uterine cancer, appendectomy, cholecystectomy, tonsillectomy, hysterectomy, hemorrhoidectomy, celiac artery stent, left leg fracture repair FH: Family History: No pertinent hx Social History: ALCOHOL: none Drugs: None ROS: GEN: Denies fevers, chills, sweats HEENT: Denies blurred vision, sore throat CV: Denies chest pain RESP: Denies shortness of air, cough GI: Per HPI : Denies hematuria, dysuria ENDO: Denies weight changes NEURO: Denies confusion, dizziness MSK: Denies weakness, joint pain/swelling SKIN: Denies jaundice, pruritus Vitals: Vitals: Vital Signs Date Time Temp Pulse Resp B/P (MAP) Pulse Ox O2 Delivery O2 Flow Rate FiO2 06/06/17 13:38 72 20 121/51 (74) 96 06/06/17 11:32 97.8 Room Air 97.8 Labs: Labs: Laboratory Tests Test 06/06/17 11:30 06/06/17 11:35 Urine Collection Type Void Urine Color Yellow Urine Clarity Clear Urine pH 6.5 Urine Specific [place] 1.010 Urine Protein Negative mg/dL (NEG-TRACE) Urine Glucose (UA) Negative mg/dL (NEG) Urine Ketones (Stick) Trace mg/dL (NEG) Urine Blood Moderate (NEG) Urine Nitrite Negative (NEG) Urine Bilirubin Negative (NEG) Urine Urobilinogen Dipstick 0.2 mg/dL (0.2 mg/dL) Urine Leukocyte Esterase Negative (NEG) Urine RBC >40 /HPF (0-2) Urine WBC Occ /HPF (0-4) Urine Squamous Epithelial Cells Occ /LPF Urine Bacteria 0 /HPF (0-FEW) White Blood Count 10.6 x10^3/uL (4.0-11.0) Red Blood Count 4.64 x10^6/uL (3.50-5.40) Hemoglobin 15.4 g/dL (12.0-15.5) Hematocrit 46.2 % (36.0-47.0) Mean Corpuscular Volume 100 fL (79-100) Mean Corpuscular Hemoglobin 33 pg (25-35) Mean Corpuscular Hemoglobin Concent 33 g/dL (31-37) Red Cell Distribution Width 13.5 % (11.5-14.5) Platelet Count 286 x10^3/uL (140-400) Neutrophils (%) (Auto) 72 % (31-73) Lymphocytes (%) (Auto) 18 % (24-48) Monocytes (%) (Auto) 6 % (0-9) Eosinophils (%) (Auto) 2 % (0-3) Basophils (%) (Auto) 1 % (0-3) Neutrophils # (Auto) 7.7 x10^3uL (1.8-7.7) Lymphocytes # (Auto) 1.9 x10^3/uL (1.0-4.8) Monocytes # (Auto) 0.6 x10^3/uL (0.0-1.1) Eosinophils # (Auto) 0.3 x10^3/uL (0.0-0.7) Basophils # (Auto) 0.1 x10^3/uL (0.0-0.2) Sodium Level 139 mmol/L (136-145) Potassium Level 3.8 mmol/L (3.5-5.1) Chloride Level 101 mmol/L (98-107) Carbon Dioxide Level 27 mmol/L (21-32) Anion Gap 11 (6-14) Blood Urea Nitrogen 12 mg/dL (7-20) Creatinine 1.1 mg/dL (0.6-1.0) Estimated GFR (Cockcroft-Gault) 48.7 BUN/Creatinine Ratio 11 (6-20) Glucose Level 111 mg/dL (70-99) Lactic Acid Level 2.0 mmol/L (0.4-2.0) Calcium Level 9.9 mg/dL (8.5-10.1) Total Bilirubin 0.5 mg/dL (0.2-1.0) Aspartate Amino Transf (AST/SGOT) 23 U/L (15-37) Alanine Aminotransferase (ALT/SGPT) 19 U/L (14-59) Alkaline Phosphatase 70 U/L (46-116) Total Protein 7.8 g/dL (6.4-8.2) Albumin 4.4 g/dL (3.4-5.0) Albumin/Globulin Ratio 1.3 (1.0-1.7) Lipase 235 U/L (73-393) Allergies: Coded Allergies: No Known Drug Allergies (Unverified , 10/06/14) Medications: Current Medications Medications (Trade) Dose Ordered Sig/Tamiko Route PRN Reason Start Time Stop Time Status Last Admin Dose Admin Sodium Chloride 1,000 ml @ 1,000 mls/hr 1X ONCE IV 06/06/17 12:00 06/06/17 12:59 DC 06/06/17 12:07 Ondansetron HCl (Zofran) 4 mg 1X ONCE IV 06/06/17 12:00 06/06/17 12:01 DC 06/06/17 12:07 Fentanyl Citrate (Fentanyl 2ml Vial) 50 mcg PRN Q15MIN PRN IV PAIN GREATER THAN 310 06/06/17 12:00 06/07/17 11:59 06/06/17 13:07 Metronidazole 100 ml @ 100 mls/hr 1X ONCE IV 06/06/17 13:45 06/06/17 14:44 06/06/17 13:54 Imaging: Imaging: CT A/P w/ IV contrast 06/01/17 Impression: 1. Moderate wall thickening of the rectum could be secondary to colitis. An adenocarcinoma is not excluded. 2. Mild wall thickening of the splenic flexure of the colon is nonspecific and could be secondary to spasm or colitis. PE: GEN: NAD, thin HEENT: Atraumatic, PERRL LUNGS: clear anteriorly HEART: RRR ABD: quiet, significant RLQ tenderness EXTREMITY: No edema SKIN: No rashes, no jaundice NEURO/PSYCH: A & O 3 A/P: A/P: Abd pain and vomiting w/ h/o mesenteric ischemia -s/p celiac stent 2015 -- Check CT angio. Will also ask surgery to see. ?VALVE INSPECTOR pump - will defer to primary D/w RN - give fluid bolus, proceed w/ CT. LIZANDRO SNYDER MD 06/06/17 1447: GI CONSULT Allergies: Coded Allergies: No Known Drug Allergies (Unverified , 10/06/14) YANY ROSS Jun 06, 2017 14:10 LIZANDRO SNYDER MD Jun 06, 2017 14:47
[2017-06-06] MEDS ORDERED: ALBUTEROL SULFATE 2.5 MG/3 ML NEBU. NEB PRN (14:15)
[2017-06-06] MEDS ORDERED: ACETAMINOPHEN 325 MG TABLET. PO PRN (14:15)
[2017-06-06] MEDS ORDERED: MORPHINE SULFATE 4 MG/ML DISP.SYRIN. IV PRN ×2 (14:15)
[2017-06-06] MEDS ORDERED: hydrALAZINE 20 MG/ML VIAL. IVP PRN (14:15)
[2017-06-06] MEDS ORDERED: traMADol 50 MG TABLET PO PRN (14:15)
[2017-06-06] MEDS ORDERED: DOCUSATE SODIUM 100 MG CAPSULE. PO PRN (14:15)
[2017-06-06] MEDS ORDERED: NICOTINE 21MG PATCH. TD PRN (14:15)
--- NOTE | 2017-06-06 14:16 | PDOC1 ---
History and Physical Date of Admission Date of Admission 06/06/17 Identification/Chief Complaint Chief Complaint abd pain Problems: Source Source: Chart review, Patient History of Present Illness History of Present Illness 71yo F, smoker, h/o mesenteric ischemia came to ER FOR ABD PAIN x2 weeks. Pt has h/o acute pancreatitis last year,but no abd pain this year till now. She has intermittent RLQ abd pain x2 weeks, lasting for hours usually, no radiation. Today gets worse, 06/11, with N/V non bloody / greenish x3d, normal BM. Pt was here 06/01, CT showed possible rectum colitis, pt dced home from ER with better pain, takes lortab 5mg prn, but today the pain is constant and pain meds not working, got fentanyl 50mcg x3 in ER, still very uncomfortable. when i asked her about plavix for her mesenteric ischemia, she said not remember and not taking it. she saw dr. Tate yesterday, no intervention done yet. she refused CT now, wants to see dr. Tate first. has subjective fever, T not known, no chills, cough ,sob, chest pain, use albuterol prn. Past Medical History Cardiovascular: Hyperlipidemia, Other Pulmonary: COPD GI: Other Heme/Onc: Cancer Infectious disease: No pertinent hx Endocrine: No pertinent hx Past Surgical History Past Surgical History: Appendectomy, Cholecystectomy, Tonsillectomy, Hysterectomy, Other Family History Family History: No Significant, Hypertension Social History ALCOHOL: none Drugs: None Current Medications Current Medications Current Medications Medications (Trade) Dose Ordered Sig/Tamiko Start Time Stop Time Status Last Admin Dose Admin Ciprofloxacin/ Dextrose 200 ml @ 200 mls/hr 1X ONCE 06/06/17 14:00 06/06/17 14:59 Fentanyl Citrate (Fentanyl 2ml Vial) 50 mcg PRN Q15MIN PRN 06/06/17 12:00 06/07/17 11:59 06/06/17 13:07 50 MCG Info (Do NOT chart on this entry -- for MONITORING) 1 each PRN DAILY PRN 06/06/17 12:30 06/08/17 12:29 Iohexol (Omnipaque 300 Mg/ml) 60 ml 1X ONCE 06/06/17 12:30 06/06/17 12:31 DC Metronidazole 100 ml @ 100 mls/hr 1X ONCE 06/06/17 13:45 06/06/17 14:44 06/06/17 13:54 100 MLS/HR Morphine Sulfate 2 mg PRN Q2HR PRN 06/06/17 13:45 06/07/17 13:44 Ondansetron HCl (Zofran) 4 mg PRN Q8HRS PRN 06/06/17 13:45 06/07/17 13:44 Sodium Chloride 1,000 ml @ 100 mls/hr Q10H 06/06/17 13:33 06/07/17 13:32 Allergies Allergies Allergies Coded Allergies Type Severity Reaction Last Updated Verified No Known Drug Allergies 10/06/14 No ROS Review of System CONSTITUTIONAL: No fever or chills EYES: No recent changes SKIN: No rash or itching CARDIOVASCULAR: No chest pain, syncope, palpitations, or edema RESPIRATORY: No SOB or cough GASTROINTESTINA +nausea, vomiting or abdominal pain NEUROLOGICAL: No headaches or weakness ENDOCRINE: No cold or heat intolerance GENITOURINARY: No urgency or frequency of urination MUSCULOSKELETAL: No back pain or joint pain LYMPHATICS: No enlarged lymph nodes PSYCHIATRIC: No anxiety or depression Physical Exam Physical Exam GEN.: No apparent distress. Alert and oriented. HEENT: Head is normocephalic, atraumatic NECK: Supple. LUNGS: bl decreased bs HEART: RRR, S1, S2 present. Peripheral pulses intact ABDOMEN: Soft, Positive bowel sounds. RLQ moderate tenderness, no rebound , + guarding. EXTREMITIES: Without any cyanosis. NEUROLOGIC: Normal speech, normal tone PSYCHIATRIC: Normal affect, normal mood. SKIN: No ulcerations Vitals Vitals Vital Signs Date Time Temp Pulse Resp B/P (MAP) Pulse Ox O2 Delivery O2 Flow Rate FiO2 06/06/17 13:38 72 20 121/51 (74) 96 06/06/17 11:32 97.8 Room Air 97.8 Labs Labs Laboratory Tests Test 06/06/17 11:30 06/06/17 11:35 Urine Collection Type Void Urine Color Yellow Urine Clarity Clear Urine pH 6.5 Urine Specific [place] 1.010 Urine Protein Negative mg/dL (NEG-TRACE) Urine Glucose (UA) Negative mg/dL (NEG) Urine Ketones (Stick) Trace mg/dL (NEG) Urine Blood Moderate (NEG) Urine Nitrite Negative (NEG) Urine Bilirubin Negative (NEG) Urine Urobilinogen Dipstick 0.2 mg/dL (0.2 mg/dL) Urine Leukocyte Esterase Negative (NEG) Urine RBC >40 /HPF (0-2) Urine WBC Occ /HPF (0-4) Urine Squamous Epithelial Cells Occ /LPF Urine Bacteria 0 /HPF (0-FEW) White Blood Count 10.6 x10^3/uL (4.0-11.0) Red Blood Count 4.64 x10^6/uL (3.50-5.40) Hemoglobin 15.4 g/dL (12.0-15.5) Hematocrit 46.2 % (36.0-47.0) Mean Corpuscular Volume 100 fL (79-100) Mean Corpuscular Hemoglobin 33 pg (25-35) Mean Corpuscular Hemoglobin Concent 33 g/dL (31-37) Red Cell Distribution Width 13.5 % (11.5-14.5) Platelet Count 286 x10^3/uL (140-400) Neutrophils (%) (Auto) 72 % (31-73) Lymphocytes (%) (Auto) 18 % (24-48) Monocytes (%) (Auto) 6 % (0-9) Eosinophils (%) (Auto) 2 % (0-3) Basophils (%) (Auto) 1 % (0-3) Neutrophils # (Auto) 7.7 x10^3uL (1.8-7.7) Lymphocytes # (Auto) 1.9 x10^3/uL (1.0-4.8) Monocytes # (Auto) 0.6 x10^3/uL (0.0-1.1) Eosinophils # (Auto) 0.3 x10^3/uL (0.0-0.7) Basophils # (Auto) 0.1 x10^3/uL (0.0-0.2) Sodium Level 139 mmol/L (136-145) Potassium Level 3.8 mmol/L (3.5-5.1) Chloride Level 101 mmol/L (98-107) Carbon Dioxide Level 27 mmol/L (21-32) Anion Gap 11 (6-14) Blood Urea Nitrogen 12 mg/dL (7-20) Creatinine 1.1 mg/dL (0.6-1.0) Estimated GFR (Cockcroft-Gault) 48.7 BUN/Creatinine Ratio 11 (6-20) Glucose Level 111 mg/dL (70-99) Lactic Acid Level 2.0 mmol/L (0.4-2.0) Calcium Level 9.9 mg/dL (8.5-10.1) Total Bilirubin 0.5 mg/dL (0.2-1.0) Aspartate Amino Transf (AST/SGOT) 23 U/L (15-37) Alanine Aminotransferase (ALT/SGPT) 19 U/L (14-59) Alkaline Phosphatase 70 U/L (46-116) Total Protein 7.8 g/dL (6.4-8.2) Albumin 4.4 g/dL (3.4-5.0) Albumin/Globulin Ratio 1.3 (1.0-1.7) Lipase 235 U/L (73-393) Laboratory Tests Test 06/06/17 11:30 06/06/17 11:35 Urine Collection Type Void Urine Color Yellow Urine Clarity Clear Urine pH 6.5 Urine Specific [place] 1.010 Urine Protein Negative mg/dL (NEG-TRACE) Urine Glucose (UA) Negative mg/dL (NEG) Urine Ketones (Stick) Trace mg/dL (NEG) Urine Blood Moderate (NEG) Urine Nitrite Negative (NEG) Urine Bilirubin Negative (NEG) Urine Urobilinogen Dipstick 0.2 mg/dL (0.2 mg/dL) Urine Leukocyte Esterase Negative (NEG) Urine RBC >40 /HPF (0-2) Urine WBC Occ /HPF (0-4) Urine Squamous Epithelial Cells Occ /LPF Urine Bacteria 0 /HPF (0-FEW) White Blood Count 10.6 x10^3/uL (4.0-11.0) Red Blood Count 4.64 x10^6/uL (3.50-5.40) Hemoglobin 15.4 g/dL (12.0-15.5) Hematocrit 46.2 % (36.0-47.0) Mean Corpuscular Volume 100 fL (79-100) Mean Corpuscular Hemoglobin 33 pg (25-35) Mean Corpuscular Hemoglobin Concent 33 g/dL (31-37) Red Cell Distribution Width 13.5 % (11.5-14.5) Platelet Count 286 x10^3/uL (140-400) Neutrophils (%) (Auto) 72 % (31-73) Lymphocytes (%) (Auto) 18 % (24-48) Monocytes (%) (Auto) 6 % (0-9) Eosinophils (%) (Auto) 2 % (0-3) Basophils (%) (Auto) 1 % (0-3) Neutrophils # (Auto) 7.7 x10^3uL (1.8-7.7) Lymphocytes # (Auto) 1.9 x10^3/uL (1.0-4.8) Monocytes # (Auto) 0.6 x10^3/uL (0.0-1.1) Eosinophils # (Auto) 0.3 x10^3/uL (0.0-0.7) Basophils # (Auto) 0.1 x10^3/uL (0.0-0.2) Sodium Level 139 mmol/L (136-145) Potassium Level 3.8 mmol/L (3.5-5.1) Chloride Level 101 mmol/L (98-107) Carbon Dioxide Level 27 mmol/L (21-32) Anion Gap 11 (6-14) Blood Urea Nitrogen 12 mg/dL (7-20) Creatinine 1.1 mg/dL (0.6-1.0) Estimated GFR (Cockcroft-Gault) 48.7 BUN/Creatinine Ratio 11 (6-20) Glucose Level 111 mg/dL (70-99) Lactic Acid Level 2.0 mmol/L (0.4-2.0) Calcium Level 9.9 mg/dL (8.5-10.1) Total Bilirubin 0.5 mg/dL (0.2-1.0) Aspartate Amino Transf (AST/SGOT) 23 U/L (15-37) Alanine Aminotransferase (ALT/SGPT) 19 U/L (14-59) Alkaline Phosphatase 70 U/L (46-116) Total Protein 7.8 g/dL (6.4-8.2) Albumin 4.4 g/dL (3.4-5.0) Albumin/Globulin Ratio 1.3 (1.0-1.7) Lipase 235 U/L (73-393) VTE Prophylaxis Ordered VTE Prophylaxis Devices: Yes VTE Pharmacological Prophylaxi: Yes Assessment/Plan Assessment/Plan intractable RLQ abd pain with N/V h/o acute pancreatitis h/o chronic mesenteric ischemia s/p celiac stent and supposed to be on plavix copd stable tobaccoism CKD3 anxiety plan: dr. Tate consult pending pt refused ct at this time point, wants to see dr. Tate first need to verify home meds will add duoneb, albuterol prn npo for now LA 2 now, repeat tmr pain control ivf gi, dvt ppx talked to GI, will do CTA TODAY, may need sx consult. 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 ZIA WATSON MD Jun 06, 2017 14:16
--- NOTE | 2017-06-06 14:35 | PHYS DOC ---
Past Medical History Past Medical History: Anxiety, Cancer, COPD, Pancreatitis Additional Past Medical Histor: colon spasms, uterine cancer Past Surgical History: Appendectomy, Cholecystectomy, Hysterectomy, Tonsillectomy Additional Past Surgical Histo: hemorrhoidectomy, left leg surgery Alcohol Use: None Drug Use: None Adult General Chief Complaint Chief Complaint: ABDOMINAL PAIN HPI HPI Patient is a 71 year old female who presents with abdominal pain. The patient has 1 week history of right sided abdominal pain. She states she was seen here previously & found to have colitis, felt better so she was discharged home with antibiotics. She actually was able to follow up in the GI clinic with Dr. Duong where he had planned further workup based on possible malignancy associated with rectal thickening. She states her pain worsened today, she vomited 3x & was unable to tolerate oral intake. Denies fevers/chills, hematemesis, diarrhea, constipation, dysuria/hematuria. History of pancreatitis , uterine cancer, hysterectomy, appendectomy, cholecystectomy. PCP is Dr. Gannon. Review of Systems Review of Systems Constitutional: Denies fever or chills Eyes: Denies change in visual acuity HENT: Denies nasal congestion or sore throat Respiratory: Denies cough or shortness of breath Cardiovascular: Denies chest pain or edema GI: Reports abdominal pain, nausea, vomiting, denies bloody stools or diarrhea : Denies dysuria or hematuria Musculoskeletal: Denies back pain or joint pain Integument: Denies rash or skin lesions Neurologic: Denies headache, focal weakness or sensory changes Current Medications Current Medications Current Medications Medications (Trade) Dose Ordered Sig/Tamiko Start Time Stop Time Status Last Admin Dose Admin Fentanyl Citrate (Fentanyl 2ml Vial) 50 mcg PRN Q15MIN PRN 06/06/17 12:00 06/07/17 11:59 06/06/17 13:07 50 MCG Info (Do NOT chart on this entry -- for MONITORING) 1 each PRN DAILY PRN 06/06/17 12:30 06/08/17 12:29 Iohexol (Omnipaque 300 Mg/ml) 60 ml 1X ONCE 06/06/17 12:30 06/06/17 12:31 DC 06/06/17 15:38 60 ML Ondansetron HCl (Zofran) 4 mg 1X ONCE 06/06/17 12:00 06/06/17 12:01 DC 06/06/17 12:07 4 MG Sodium Chloride 1,000 ml @ 1,000 mls/hr 1X ONCE 06/06/17 12:00 06/06/17 12:59 DC 06/06/17 12:07 1,000 MLS/HR Allergies Allergies Allergies Coded Allergies Type Severity Reaction Last Updated Verified No Known Drug Allergies 10/06/14 No Physical Exam Physical Exam Constitutional: thin, frail, no acute distress, non-toxic appearance. HENT: Normocephalic, atraumatic, bilateral external ears normal, oropharynx moist, nose normal. Eyes: conjunctiva normal, no discharge. Neck: supple, no stridor. Cardiovascular: RRR, no murmurs, no edema. Lungs & Thorax: LCTAB, no wheezing, no respiratory distress. Abdomen: soft, RLQ tenderness with +rebound tenderness & guarding, no masses or pulsatile masses, nontender, nondistended. Skin: Warm, dry, no erythema, no rash. Back: No CVA tenderness. Extremities: No tenderness, no edema. Neurologic: Alert and oriented X 3, no focal deficits noted. Psychologic: Affect normal, judgement normal, mood normal. Current Patient Data Vital Signs Vital Signs Date Time Temp Pulse Resp B/P (MAP) Pulse Ox O2 Delivery O2 Flow Rate FiO2 06/06/17 12:38 72 20 131/45 (73) 95 06/06/17 11:32 97.8 Room Air 97.8 Lab Values Laboratory Tests Test 06/06/17 11:30 06/06/17 11:35 Urine Collection Type Void Urine Color Yellow Urine Clarity Clear Urine pH 6.5 Urine Specific [place] 1.010 Urine Protein Negative mg/dL (NEG-TRACE) Urine Glucose (UA) Negative mg/dL (NEG) Urine Ketones (Stick) Trace mg/dL (NEG) Urine Blood Moderate (NEG) Urine Nitrite Negative (NEG) Urine Bilirubin Negative (NEG) Urine Urobilinogen Dipstick 0.2 mg/dL (0.2 mg/dL) Urine Leukocyte Esterase Negative (NEG) Urine RBC >40 /HPF (0-2) Urine WBC Occ /HPF (0-4) Urine Squamous Epithelial Cells Occ /LPF Urine Bacteria 0 /HPF (0-FEW) White Blood Count 10.6 x10^3/uL (4.0-11.0) Red Blood Count 4.64 x10^6/uL (3.50-5.40) Hemoglobin 15.4 g/dL (12.0-15.5) Hematocrit 46.2 % (36.0-47.0) Mean Corpuscular Volume 100 fL (79-100) Mean Corpuscular Hemoglobin 33 pg (25-35) Mean Corpuscular Hemoglobin Concent 33 g/dL (31-37) Red Cell Distribution Width 13.5 % (11.5-14.5) Platelet Count 286 x10^3/uL (140-400) Neutrophils (%) (Auto) 72 % (31-73) Lymphocytes (%) (Auto) 18 % (24-48) L Monocytes (%) (Auto) 6 % (0-9) Eosinophils (%) (Auto) 2 % (0-3) Basophils (%) (Auto) 1 % (0-3) Neutrophils # (Auto) 7.7 x10^3uL (1.8-7.7) Lymphocytes # (Auto) 1.9 x10^3/uL (1.0-4.8) Monocytes # (Auto) 0.6 x10^3/uL (0.0-1.1) Eosinophils # (Auto) 0.3 x10^3/uL (0.0-0.7) Basophils # (Auto) 0.1 x10^3/uL (0.0-0.2) Sodium Level 139 mmol/L (136-145) Potassium Level 3.8 mmol/L (3.5-5.1) Chloride Level 101 mmol/L (98-107) Carbon Dioxide Level 27 mmol/L (21-32) Anion Gap 11 (6-14) Blood Urea Nitrogen 12 mg/dL (7-20) Creatinine 1.1 mg/dL (0.6-1.0) H Estimated GFR (Cockcroft-Gault) 48.7 BUN/Creatinine Ratio 11 (6-20) Glucose Level 111 mg/dL (70-99) H Lactic Acid Level 2.0 mmol/L (0.4-2.0) Calcium Level 9.9 mg/dL (8.5-10.1) Total Bilirubin 0.5 mg/dL (0.2-1.0) Aspartate Amino Transferase (AST) 23 U/L (15-37) Alanine Aminotransferase (ALT) 19 U/L (14-59) Alkaline Phosphatase 70 U/L (46-116) Total Protein 7.8 g/dL (6.4-8.2) Albumin 4.4 g/dL (3.4-5.0) Albumin/Globulin Ratio 1.3 (1.0-1.7) Lipase 235 U/L (73-393) Laboratory Tests 06/06/17 11:35 Laboratory Tests 06/06/17 11:35 EKG EKG Interpreted by me: Normal sinus rhythm rate 87, no acute ST or T wave changes, no ectopy, significant artifact[] Radiology/Procedures Radiology/Procedures [] Course & Med Decision Making Course & Med Decision Making Pertinent Labs and Imaging studies reviewed. (See chart for details) Patient presents with abdominal pain and vomiting. Vitals stable, not afebrile, tachycardic, or hypotensive. Gave IV fluids, Zofran, pain medication. She still had significant ongoing pain. Obtained labs which showed acute renal failure but otherwise no significant abnormality. She did not feel well and up to go home. Consulted Dr. Duong of GI; he agrees with plan for admission and IV antibiotics. Recommends IV fluid hydration and then he will order CT angiogram of her abdomen for further evaluation. Discussed with Dr. Peraza who agrees to admit to inpatient status. The patient is being admitted in guarded condition. [] Dragon Disclaimer Dragon Disclaimer This electronic medical record was generated, in whole or in part, using a voice recognition dictation system. Departure Departure Impression: Primary Impression: Abdominal pain Disposition: ADMITTED INPATIENT Admitting Physician: Hank Peraza Condition: STABLE Referrals: GEETA GANNON Jr, MD (PCP) ABILIO NELSON MD Jun 06, 2017 14:35
[2017-06-06] MEDS: MORPHINE SULFATE 4 MG/ML DISP.SYRIN. IV PRN ×4 (14:49→22:06)
[2017-06-06] MEDS ORDERED: IOHEXOL 350 MG/ML 100 ML VIAL. IV ONE (15:00)
[2017-06-06] MEDS ORDERED: ASPI-482 PO (15:02)
[2017-06-06 15:49] VITALS: BP 119/60
[2017-06-06] MEDS: IV NORMAL SALINE 1000ML BAG 1,000 ML IV SCH (16:04)
--- NOTE | 2017-06-06 16:28 | RAD ---
CTA of the abdomen and pelvis with contrast, 06/06/2017: History: Abdominal pain, mesenteric ischemia, celiac artery stent Multidetector CT imaging was performed following an IV bolus injection of iodinated contrast material. Multiplanar reconstructions were produced as well as 3-D volume rendered reconstructions of the major arteries. There is extensive generalized aortic calcific plaquing. There is a patent stent in the proximal celiac artery with its proximal end extending into the anterior aspect of the aorta. There is approximately 50% diameter narrowing of the proximal celiac artery just distal to the distal end of the stent. The celiac arterial branches are unremarkable. There is moderate calcific plaquing involving the proximal superior mesenteric artery. There is mild narrowing at its origin. There is moderate narrowing approximately 3 cm distal to its origin due to the calcific plaquing. There is considerable calcific plaquing at the origins of both main renal arteries with moderate associated luminal narrowing on the right and mild narrowing on the left. A small patent inferior mesenteric artery is identified. There is slight left lateral bulging of the infrarenal abdominal aorta the aorta measures only 2.3 cm in width at the level of this small bulge. There is moderate calcific plaquing in the iliac arteries bilaterally. There is mild associated luminal narrowing at several levels. No high-grade stenosis is seen. Incidental CT findings include the presence of moderate pulmonary emphysema and parenchymal scarring. Moderate common bile duct dilatation is probably secondary to the postcholecystectomy state. Small bilateral renal cysts are present. IMPRESSION: 1. Extensive calcific plaquing of the aorta and its branches. 2. 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 3. Patent celiac artery stent with mild luminal narrowing just distal to the distal end of the stent. 4. Moderate calcific plaquing and luminal narrowing of the proximal superior mesenteric artery. 5. Calcific plaquing and moderate luminal narrowing at the right renal artery origin. PQRS Compliance Statement: One or more of the following individualized dose reduction techniques were utilized for this examination: 1. Automated exposure control 2. Adjustment of the mA and/or kV according to patient size 3. Use of iterative reconstruction technique Note: Stenosis calculations for CTA, MRA and conventional angiography are based upon determination of the distal ICA diameter in accordance with the NASCET methodology. Stenosis calculations for Doppler studies are derived from validated velocity criteria which are known to correlate with NASCET methodology of determining stenosis.
[2017-06-06] MEDS ORDERED: FLU VACC QS2017-18 (36MOS+)/PF 0.5 ML SYRINGE. VAX IM ONE (19:15)
[2017-06-06] MEDS ORDERED: INFLUENZA VAX SCREEN BY RX. MC ONE (19:15)
[2017-06-06 19:44] VITALS: BP 109/46
[2017-06-06] MEDS: IPRATRPIUM/ALBUTEROL 0.5/2.5MG 3 ML NEBU. NEB SCH (20:16)
[2017-06-06] MEDS ORDERED: FAMOTIDINE 20 MG/2 ML VIAL IVP SCH (21:00)
[2017-06-06] MEDS: HEPARIN PF for SUB-Q USE 5,000 UNIT/0.5 ML VIAL. SQ SCH (22:15)
[2017-06-06 23:51] VITALS: BP 118/51
[2017-06-07] MEDS: MORPHINE SULFATE 4 MG/ML DISP.SYRIN. IV PRN ×2 (01:39→05:44)
[2017-06-07 03:00] VITALS: BP 118/57
[2017-06-07] MEDS: IV NORMAL SALINE 1000ML BAG 1,000 ML IV SCH ×2 (05:43→08:37)
[2017-06-07] MEDS: HEPARIN PF for SUB-Q USE 5,000 UNIT/0.5 ML VIAL. SQ SCH ×2 (05:51→14:37)
[2017-06-07 07:16] VITALS: BP 116/59
[2017-06-07 08:11] LABS: BASO # 0.1 x10^3/uL (0.0-0.2); BASO % 1 % (0-3); EOS % 4 % (0-3); HEMATOCRIT 43.7 % (36.0-47.0); HEMOGLOBIN 14.5 g/dL (12.0-15.5); LYMPH # 2.3 x10^3/uL (1.0-4.8); LYMPH % 22 % (24-48); MEAN CORPUSCULAR HEMOGLOBIN 33 pg (25-35); MEAN CORPUSCULAR HGB CONC 33 g/dL (31-37); MEAN CORPUSCULAR VOLUME 99 fL (79-100); MONO % 7 % (0-9); NEUT % 65 % (31-73); PLATELET COUNT 247 x10^3/uL (140-400); RED BLOOD COUNT 4.41 x10^6/uL (3.50-5.40); RED CELL DISTRIBUTION WIDTH 13.3 % (11.5-14.5); WHITE BLOOD COUNT 10.3 x10^3/uL (4.0-11.0)
[2017-06-07] MEDS: IPRATRPIUM/ALBUTEROL 0.5/2.5MG 3 ML NEBU. NEB SCH ×2 (08:14→12:39)
[2017-06-07 08:44] LABS: CALCIUM 8.6 mg/dL (8.5-10.1); CREATININE 1.1 mg/dL (0.6-1.0); GFR 48.7; POTASSIUM 4.5 mmol/L (3.5-5.1)
--- NOTE | 2017-06-07 08:45 | PDOC2 ---
MARYJANE ZELAYA SQL DATA ARCHITECT 06/07/17 0845: CONSULT Date of Consult Date of Consult DATE: 06/07/17 TIME: 08:37 Reason for Consult Reason for Consult: abd pain, hx of mesenteric ischemia Referring Physician Referring Physician: Dr Duong Identification/Chief Complaint Chief Complaint abdominal pain Problems: Source Source: Chart review, Patient History of Present Illness Reason for Visit: Abdominal pain, nausea, emesis for about a week. Last 3-4 days has been increasingly worse. Records reveal history of chronic mesenteric ischemia, required celiac stenting in 2016. She was on plavix, however at some point in last few months that was discontinued. Pain is lower abdomen, cramping and sharp. Hurts down to groin. No constipation or diarrhea Past Medical History Cardiovascular: Hyperlipidemia, Other Pulmonary: COPD GI: Other Heme/Onc: Cancer Infectious disease: No pertinent hx Endocrine: No pertinent hx Past Surgical History Past Surgical History: Appendectomy, Cholecystectomy, Tonsillectomy, Hysterectomy, Other Family History Family History: No Significant, Hypertension Social History <1 pack per day ALCOHOL: none Drugs: None Current Problem List Problem List Problems Medical Problems: (1) Abdominal pain Status: Acute Current Medications Current Medications Current Medications Sodium Chloride 1,000 ml @ 1,000 mls/hr 1X ONCE IV Last administered on 12:07; Start 06/06/17 at 12:00; Stop 06/06/17 at 12:59; Status DC Ondansetron HCl (Zofran) 4 mg 1X ONCE IV Last administered on 06/06/17 12:07 ; Start 06/06/17 at 12:00; Stop 06/06/17 at 12:01; Status DC Fentanyl Citrate (Fentanyl 2ml Vial) 50 mcg PRN Q15MIN PRN IV PAIN GREATER THAN 3/10 Last administered on 06/06/17 13:07; Start 06/06/17 at 12:00; Stop 06/07/17 at 11:59 Iohexol (Omnipaque 300 Mg/ml) 60 ml 1X ONCE IV Last administered on 06/06/17 15:38; Start 06/06/17 at 12:30; Stop 06/06/17 at 12:31; Status DC Info (Do NOT chart on this entry -- for MONITORING) 1 each PRN DAILY PRN MC SEE COMMENTS; Start 06/06/17 at 12:30; Stop 06/08/17 at 12:29 Ondansetron HCl (Zofran) 4 mg PRN Q8HRS PRN IV NAUSEA/VOMITING; Start 06/06/17 at 13:45; Stop 06/07/17 at 13:44 Morphine Sulfate 2 mg PRN Q2HR PRN IV PAIN Last administered on 06/07/17 05:44 ; Start 06/06/17 at 13:45; Stop 06/07/17 at 13:44 Sodium Chloride 1,000 ml @ 100 mls/hr Q10H IV Last administered on 06/07/17 05:43; Start 06/06/17 at 13:33; Stop 06/07/17 at 13:32 Ciprofloxacin/ Dextrose 200 ml @ 200 mls/hr 1X ONCE IV Last administered on 06/06/17 16:04; Start 06/06/17 at 14:00; Stop 06/06/17 at 14:59; Status DC Metronidazole 100 ml @ 100 mls/hr 1X ONCE IV Last administered on 06/06/17 13:54; Start 06/06/17 at 13:45; Stop 06/06/17 at 14:44; Status DC Nicotine (Nicoderm Cq 21mg) 1 patch PRN DAILY PRN TD SMOKING CESSATION Last administered on 06/06/17 16:03; Start 06/06/17 at 14:15 Sertraline HCl (Zoloft) 50 mg DAILY PO ; Start 06/07/17 at 09:00 Acetaminophen (Tylenol) 650 mg PRN Q6HRS PRN PO FEVER; Start 06/06/17 at 14:15 Ondansetron HCl (Zofran) 4 mg PRN Q6HRS PRN IV NAUSEA/VOMITING; Start 06/06/17 at 14:15 Morphine Sulfate 2 mg PRN Q2HR PRN IV PAIN; Start 06/06/17 at 14:15 Tramadol HCl (Ultram) 50 mg PRN Q6HRS PRN PO PAIN; Start 06/06/17 at 14:15 Hydralazine HCl (Apresoline) 10 mg PRN Q4HRS PRN IVP ELEVATED BP, SEE COMMENTS ; Start 06/06/17 at 14:15 Docusate Sodium (Colace) 100 mg PRN DAILY PRN PO CONSTIPATION; Start 06/06/17 at 14:15 Albuterol/ Ipratropium (Duoneb) 3 ml RTQID NEB Last administered on 06/07/17 08:14; Start 06/06/17 at 16:00 Albuterol Sulfate (Ventolin Neb Soln) 2.5 mg PRN Q2HR PRN NEB SHORTNESS OF BREATH; Start 06/06/17 at 14:15 Guaifenesin (Mucinex) 600 mg BID PO ; Start 06/06/17 at 14:30; Stop 06/06/17 at 21:00; Status DC Famotidine (Pepcid) 20 mg QHS IVP Last administered on 06/06/17 20:01; Start 06/06/17 at 21:00 Heparin Sodium (Porcine) (Heparin Sq) 5,000 unit Q8HRS SQ Last administered on 06/07/17 05:51; Start 06/06/17 at 22:00 Morphine Sulfate 4 mg PRN Q2HR PRN IV PAIN; Start 06/06/17 at 14:15 Iohexol (Omnipaque 350 Mg/ml) 75 ml 1X ONCE IV ; Start 06/06/17 at 15:00; Stop 06/06/17 at 15:01; Status DC Info (Do NOT chart on this entry -- for MONITORING) 1 each PRN DAILY PRN MC SEE COMMENTS; Start 06/06/17 at 15:00; Stop 06/08/17 at 14:59 Info (Do NOT chart on this placeholder) 1 each 1X ONCE MC ; Start 06/06/17 at 19:15; Stop 06/06/17 at 19:16; Status UNV Influenza Virus Vaccine Quadrival (Fluarix Quad 9156-4313 Syringe) 0.5 ml ONCE ONCE VAX IM ; Start 06/06/17 at 19:15; Stop 06/06/17 at 19:16; Status DC Active Scripts Active Beltrami 5-325 Tablet (Acetaminophen/Hydrocodone Bitart) 1 Each Tablet 1-2 Tab PO PRN Q6HRS PRN Flagyl (Metronidazole) 500 Mg Tablet 1 Tab PO BID Cipro (Ciprofloxacin Hcl) 500 Mg Tablet 1 Tab PO BID Miralax (Polyethylene Glycol 3350) 17 Gm Powd.pack 1 Packet PO DAILY Reported Aspir 81 (Aspirin) 81 Mg Tablet. 81 Mg PO Creon 36,000 Units Capsule (Lipase/Protease/Amylase) 1 Each Capsule. 2 Each PO TIDBFRMEAL NICODERM CQ 21mg (Nicotine) 1 Each Patch.td24 1 Patch TP DAILY Hydrocodone-Apap 5-325 (Hydrocodone Bit/Acetaminophen) 1 Each Tablet 1 Tab PO Q4HRS PRN Zoloft (Sertraline Hcl) 50 Mg Tablet 1 Tab PO DAILY Proair Hfa Inhaler (Albuterol Sulfate) 8.5 Gm Hfa.aer.ad 2 Puff IH BID Allergies Allergies: Coded Allergies: No Known Drug Allergies (Unverified , 10/06/14) ROS General: YES: Chills, Night Sweats PSYCHOLOGICAL ROS: No: Anxiety, Depression Eyes: No Blurry vision, No Double vision HEENT: No: Heacaches, Sore Throat Hematological and Lymphatic: YES: Bleeding Problems, No: Blood Clots Respiratory: No: Cough, Shortness of breath Cardiovascular: No Chest Pain, No Palpitations Gastrointestinal: Yes Other (see hpi) Genitourinary: No Dysuria, No Hematuria Musculoskeletal: No Joint Pain, No Muscle Pain Neurological: No Confusion, No Numbness/Tingling Skin: No Pruritus, No Rash Physical Exam General: Alert, Oriented X3, Cooperative, No acute distress HEENT: PERRLA, Mucous membr. moist/pink Lungs: Clear to auscultation, Normal air movement Heart: Regular rate, Normal S1, Normal S2, No murmurs Abdomen: Soft, Other (tenderness to RLQ) Extremities: No clubbing, No cyanosis Skin: No rashes, No breakdown Neuro: Normal speech, Sensation intact Psych/Mental Status: Mental status NL, Mood NL MUSCULOSKELETAL: No deformity, No swelling Vitals VITALS Vital Signs Date Time Temp Pulse Resp B/P (MAP) Pulse Ox O2 Delivery O2 Flow Rate FiO2 06/07/17 08:16 97 Room Air 06/07/17 07:16 97.6 69 15 116/59 (78) 97.6 Labs Labs Laboratory Tests Test 06/06/17 11:30 06/06/17 11:35 06/07/17 07:40 Urine Collection Type Void Urine Color Yellow Urine Clarity Clear Urine pH 6.5 Urine Specific [place] 1.010 Urine Protein Negative mg/dL (NEG-TRACE) Urine Glucose (UA) Negative mg/dL (NEG) Urine Ketones (Stick) Trace mg/dL (NEG) Urine Blood Moderate (NEG) Urine Nitrite Negative (NEG) Urine Bilirubin Negative (NEG) Urine Urobilinogen Dipstick 0.2 mg/dL (0.2 mg/dL) Urine Leukocyte Esterase Negative (NEG) Urine RBC >40 /HPF (0-2) Urine WBC Occ /HPF (0-4) Urine Squamous Epithelial Cells Occ /LPF Urine Bacteria 0 /HPF (0-FEW) White Blood Count 10.6 x10^3/uL (4.0-11.0) 10.3 x10^3/uL (4.0-11.0) Red Blood Count 4.64 x10^6/uL (3.50-5.40) 4.41 x10^6/uL (3.50-5.40) Hemoglobin 15.4 g/dL (12.0-15.5) 14.5 g/dL (12.0-15.5) Hematocrit 46.2 % (36.0-47.0) 43.7 % (36.0-47.0) Mean Corpuscular Volume 100 fL (79-100) 99 fL (79-100) Mean Corpuscular Hemoglobin 33 pg (25-35) 33 pg (25-35) Mean Corpuscular Hemoglobin Concent 33 g/dL (31-37) 33 g/dL (31-37) Red Cell Distribution Width 13.5 % (11.5-14.5) 13.3 % (11.5-14.5) Platelet Count 286 x10^3/uL (140-400) 247 x10^3/uL (140-400) Neutrophils (%) (Auto) 72 % (31-73) 65 % (31-73) Lymphocytes (%) (Auto) 18 % (24-48) 22 % (24-48) Monocytes (%) (Auto) 6 % (0-9) 7 % (0-9) Eosinophils (%) (Auto) 2 % (0-3) 4 % (0-3) Basophils (%) (Auto) 1 % (0-3) 1 % (0-3) Neutrophils # (Auto) 7.7 x10^3uL (1.8-7.7) 6.7 x10^3uL (1.8-7.7) Lymphocytes # (Auto) 1.9 x10^3/uL (1.0-4.8) 2.3 x10^3/uL (1.0-4.8) Monocytes # (Auto) 0.6 x10^3/uL (0.0-1.1) 0.8 x10^3/uL (0.0-1.1) Eosinophils # (Auto) 0.3 x10^3/uL (0.0-0.7) 0.4 x10^3/uL (0.0-0.7) Basophils # (Auto) 0.1 x10^3/uL (0.0-0.2) 0.1 x10^3/uL (0.0-0.2) Sodium Level 139 mmol/L (136-145) Potassium Level 3.8 mmol/L (3.5-5.1) Chloride Level 101 mmol/L (98-107) Carbon Dioxide Level 27 mmol/L (21-32) Anion Gap 11 (6-14) Blood Urea Nitrogen 12 mg/dL (7-20) Creatinine 1.1 mg/dL (0.6-1.0) Estimated GFR (Cockcroft-Gault) 48.7 BUN/Creatinine Ratio 11 (6-20) Glucose Level 111 mg/dL (70-99) Lactic Acid Level 2.0 mmol/L (0.4-2.0) Calcium Level 9.9 mg/dL (8.5-10.1) Total Bilirubin 0.5 mg/dL (0.2-1.0) Aspartate Amino Transf (AST/SGOT) 23 U/L (15-37) Alanine Aminotransferase (ALT/SGPT) 19 U/L (14-59) Alkaline Phosphatase 70 U/L (46-116) Total Protein 7.8 g/dL (6.4-8.2) Albumin 4.4 g/dL (3.4-5.0) Albumin/Globulin Ratio 1.3 (1.0-1.7) Lipase 235 U/L (73-393) Laboratory Tests Test 06/06/17 11:30 06/06/17 11:35 06/07/17 07:40 Urine Collection Type Void Urine Color Yellow Urine Clarity Clear Urine pH 6.5 Urine Specific [place] 1.010 Urine Protein Negative mg/dL (NEG-TRACE) Urine Glucose (UA) Negative mg/dL (NEG) Urine Ketones (Stick) Trace mg/dL (NEG) Urine Blood Moderate (NEG) Urine Nitrite Negative (NEG) Urine Bilirubin Negative (NEG) Urine Urobilinogen Dipstick 0.2 mg/dL (0.2 mg/dL) Urine Leukocyte Esterase Negative (NEG) Urine RBC >40 /HPF (0-2) Urine WBC Occ /HPF (0-4) Urine Squamous Epithelial Cells Occ /LPF Urine Bacteria 0 /HPF (0-FEW) White Blood Count 10.6 x10^3/uL (4.0-11.0) 10.3 x10^3/uL (4.0-11.0) Red Blood Count 4.64 x10^6/uL (3.50-5.40) 4.41 x10^6/uL (3.50-5.40) Hemoglobin 15.4 g/dL (12.0-15.5) 14.5 g/dL (12.0-15.5) Hematocrit 46.2 % (36.0-47.0) 43.7 % (36.0-47.0) Mean Corpuscular Volume 100 fL (79-100) 99 fL (79-100) Mean Corpuscular Hemoglobin 33 pg (25-35) 33 pg (25-35) Mean Corpuscular Hemoglobin Concent 33 g/dL (31-37) 33 g/dL (31-37) Red Cell Distribution Width 13.5 % (11.5-14.5) 13.3 % (11.5-14.5) Platelet Count 286 x10^3/uL (140-400) 247 x10^3/uL (140-400) Neutrophils (%) (Auto) 72 % (31-73) 65 % (31-73) Lymphocytes (%) (Auto) 18 % (24-48) 22 % (24-48) Monocytes (%) (Auto) 6 % (0-9) 7 % (0-9) Eosinophils (%) (Auto) 2 % (0-3) 4 % (0-3) Basophils (%) (Auto) 1 % (0-3) 1 % (0-3) Neutrophils # (Auto) 7.7 x10^3uL (1.8-7.7) 6.7 x10^3uL (1.8-7.7) Lymphocytes # (Auto) 1.9 x10^3/uL (1.0-4.8) 2.3 x10^3/uL (1.0-4.8) Monocytes # (Auto) 0.6 x10^3/uL (0.0-1.1) 0.8 x10^3/uL (0.0-1.1) Eosinophils # (Auto) 0.3 x10^3/uL (0.0-0.7) 0.4 x10^3/uL (0.0-0.7) Basophils # (Auto) 0.1 x10^3/uL (0.0-0.2) 0.1 x10^3/uL (0.0-0.2) Sodium Level 139 mmol/L (136-145) Potassium Level 3.8 mmol/L (3.5-5.1) Chloride Level 101 mmol/L (98-107) Carbon Dioxide Level 27 mmol/L (21-32) Anion Gap 11 (6-14) Blood Urea Nitrogen 12 mg/dL (7-20) Creatinine 1.1 mg/dL (0.6-1.0) Estimated GFR (Cockcroft-Gault) 48.7 BUN/Creatinine Ratio 11 (6-20) Glucose Level 111 mg/dL (70-99) Lactic Acid Level 2.0 mmol/L (0.4-2.0) Calcium Level 9.9 mg/dL (8.5-10.1) Total Bilirubin 0.5 mg/dL (0.2-1.0) Aspartate Amino Transf (AST/SGOT) 23 U/L (15-37) Alanine Aminotransferase (ALT/SGPT) 19 U/L (14-59) Alkaline Phosphatase 70 U/L (46-116) Total Protein 7.8 g/dL (6.4-8.2) Albumin 4.4 g/dL (3.4-5.0) Albumin/Globulin Ratio 1.3 (1.0-1.7) Lipase 235 U/L (73-393) Assessment/Plan Assessment/Plan Mesenteric ischemia, CTA reviewed abd pain, n/v will review with Dr Warren, I do not expect any surgical recs at this time, she is also not interested in any surgery APRIL WARREN MD 06/07/17 1107: CONSULT Allergies Allergies: Coded Allergies: No Known Drug Allergies (Unverified , 10/06/14) Assessment/Plan Assessment/Plan Patient seen and examined. Complains of abdominal pain. 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 Pain due to vascular insuffiency. Recommend vascular consult. MARYJANE ZELAYA APRN Jun 07, 2017 08:45 APRIL WARREN MD Jun 07, 2017 11:07
[2017-06-07] MEDS ORDERED: SERTRALINE 50 MG TABLET. PO SCH (09:00)
--- NOTE | 2017-06-07 10:36 | PDOC ---
Subjective: Subjective: Feels 100% better. Hungry. Wants to eat and go home. Objective: Objective: Reviewed surgery note. Vital Signs: Vital Signs Date Time Temp Pulse Resp B/P (MAP) Pulse Ox O2 Delivery O2 Flow Rate FiO2 06/07/17 08:25 Room Air 06/07/17 08:16 97 06/07/17 07:16 97.6 69 15 116/59 (78) 97.6 Labs: Laboratory Tests Test 06/06/17 11:30 06/06/17 11:35 06/07/17 07:40 06/07/17 07:50 Urine Collection Type Void Urine Color Yellow Urine Clarity Clear Urine pH 6.5 Urine Specific [place] 1.010 Urine Protein Negative mg/dL Urine Glucose (UA) Negative mg/dL Urine Ketones (Stick) Trace mg/dL Urine Blood Moderate Urine Nitrite Negative Urine Bilirubin Negative Urine Urobilinogen Dipstick 0.2 mg/dL Urine Leukocyte Esterase Negative Urine RBC >40 /HPF Urine WBC Occ /HPF Urine Squamous Epithelial Cells Occ /LPF Urine Bacteria 0 /HPF White Blood Count 10.6 x10^3/uL 10.3 x10^3/uL Red Blood Count 4.64 x10^6/uL 4.41 x10^6/uL Hemoglobin 15.4 g/dL 14.5 g/dL Hematocrit 46.2 % 43.7 % Mean Corpuscular Volume 100 fL 99 fL Mean Corpuscular Hemoglobin 33 pg 33 pg Mean Corpuscular Hemoglobin Concent 33 g/dL 33 g/dL Red Cell Distribution Width 13.5 % 13.3 % Platelet Count 286 x10^3/uL 247 x10^3/uL Neutrophils (%) (Auto) 72 % 65 % Lymphocytes (%) (Auto) 18 % 22 % Monocytes (%) (Auto) 6 % 7 % Eosinophils (%) (Auto) 2 % 4 % Basophils (%) (Auto) 1 % 1 % Neutrophils # (Auto) 7.7 x10^3uL 6.7 x10^3uL Lymphocytes # (Auto) 1.9 x10^3/uL 2.3 x10^3/uL Monocytes # (Auto) 0.6 x10^3/uL 0.8 x10^3/uL Eosinophils # (Auto) 0.3 x10^3/uL 0.4 x10^3/uL Basophils # (Auto) 0.1 x10^3/uL 0.1 x10^3/uL Sodium Level 139 mmol/L 141 mmol/L Potassium Level 3.8 mmol/L 4.5 mmol/L Chloride Level 101 mmol/L 107 mmol/L Carbon Dioxide Level 27 mmol/L 30 mmol/L Anion Gap 11 4 Blood Urea Nitrogen 12 mg/dL 8 mg/dL Creatinine 1.1 mg/dL 1.1 mg/dL Estimated GFR (Cockcroft-Gault) 48.7 48.7 BUN/Creatinine Ratio 11 Glucose Level 111 mg/dL 91 mg/dL Lactic Acid Level 2.0 mmol/L 1.2 mmol/L Calcium Level 9.9 mg/dL 8.6 mg/dL Total Bilirubin 0.5 mg/dL Aspartate Amino Transf (AST/SGOT) 23 U/L Alanine Aminotransferase (ALT/SGPT) 19 U/L Alkaline Phosphatase 70 U/L Total Protein 7.8 g/dL Albumin 4.4 g/dL Albumin/Globulin Ratio 1.3 Lipase 235 U/L Imaging: CTA A/P 06/06/17 IMPRESSION: 1. Extensive calcific plaquing of the aorta and its branches. 2. 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 3. Patent celiac artery stent with mild luminal narrowing just distal to the distal end of the stent. 4. Moderate calcific plaquing and luminal narrowing of the proximal superior mesenteric artery. 5. Calcific plaquing and moderate luminal narrowing at the right renal artery origin. PE: GEN: NAD LUNGS: clear HEART: RRR ABD: S/ND/NT NEURO/PSYCH: A & O 3 A/P: Abd pain and vomiting - resolved -mesenteric ischemia s/p celiac stent 2015 (off Plavix on ASA), CTA as above -surgery has seen, pt not interested in surgery -- D/w RN - try diet, if tolerates look toward DC. Continue regular GI meds (Creon, etc.) YANY ROSS Jun 07, 2017 10:35
[2017-06-07 11:24] VITALS: BP 136/42
[2017-06-07] MEDS ORDERED: LIPASE/PROTEAS/AMYLAS 10/34/55 CAPSULE.DR. PO SCH (12:00)
[2017-06-07] MEDS ORDERED: TRAM50TA PO (14:31)
[2017-06-07 15:23] VITALS: BP 134/56
--- NOTE | 2017-06-10 16:11 | DS ---
DATE OF DISCHARGE: 06/07/2017 CHIEF COMPLAINT: Abdominal pain. HOSPITAL COURSE: The patient is a 71-year-old smoker with a history of mesenteric ischemia who presented to the Emergency Room with a 2-week history of abdominal pain. She was admitted and placed on bowel rest. Both surgical as well as GI services saw the patient. Her symptoms actually improved completely by the 6th and the patient insisted on getting discharged to home. As she was able to tolerate food at this time, this was accommodated. DISCHARGE DATE: 06/07/2017. DISCHARGE DIAGNOSIS: Mesenteric ischemia. DISCHARGE DISPOSITION: To home. DISCHARGE CONDITION: Improved. DISCHARGE MEDICATIONS: Please refer to MAR. DISCHARGE INSTRUCTIONS: The patient will follow up with PCP in 2 weeks. MO CHAN MD DR: UR/nts JOB#: [id number] / [id number] GEETA Alfonso MD MTDD
[2017-09-05] MEDS ORDERED: HYDR-2758 PO (12:25)
== END 2017-06-07 15:45 | disposition home or self-care (01) | DRG 394 ==
LOC: ER 11:24 → 6 SOUTH 12:57
PROVIDERS: ADMIT Internal Medicine; ATTEND Internal Medicine
DX: K55.059 Acute (reversible) ischemia of intestine, part and extent unspecified (principal); R64 Cachexia; J44.9 Chronic obstructive pulmonary disease, unspecified; N18.3 Chronic kidney disease, stage 3 (moderate); Z68.1 Body mass index [BMI] 19.9 or less, adult; I12.9 Hypertensive chronic kidney disease with stage 1 through stage 4 chronic kidney disease, or unspecified chronic kidney disease; E78.5 Hyperlipidemia, unspecified; F17.200 Nicotine dependence, unspecified, uncomplicated; F41.9 Anxiety disorder, unspecified; Z90.49 Acquired absence of other specified parts of digestive tract; Z90.89 Acquired absence of other organs; Z90.710 Acquired absence of both cervix and uterus; Z85.42 Personal history of malignant neoplasm of other parts of uterus
CPT/HCPCS: 36415; 74174; 80048; 80053; 81001; 83605; 83690; 85025; 93005; 94250; 94640; 94760; 96361; 96374; J0744; J2270; J2405; J3010; J3490; J7030; J7620; Q9967; S0028; 99285-25

== ENCOUNTER 2017-08-18 08:49 | Emergency (ER) | payer MEDICARE ==
[~2017-08-18] VITALS: Ht 165.1 cm; Wt 43.1 kg
[~2017-08-18 08:49] MED LIST changes: +ASPI-482 PO; +TRAM50TA PO
[2017-08-18] MEDS ORDERED: ONDANSETRON PF 4 MG/2 ML VIAL. IV ONE (09:15)
[2017-08-18] MEDS ORDERED: HYDROmorphone 2 MG/ML VIAL IV/SQ PRN (09:15)
[2017-08-18 09:22] LABS: BASO # 0.2 x10^3/uL (0.0-0.2); BASO % 1 % (0-3); EOS % 1 % (0-3); HEMOGLOBIN 15.5 g/dL (12.0-15.5); LYMPH # 1.8 x10^3/uL (1.0-4.8); LYMPH % 14 % (24-48); MEAN CORPUSCULAR HEMOGLOBIN 33 pg (25-35); MEAN CORPUSCULAR HGB CONC 34 g/dL (31-37); MEAN CORPUSCULAR VOLUME 97 fL (79-100); MONO % 5 % (0-9); NEUT % 79 % (31-73); PLATELET COUNT 348 x10^3/uL (140-400); RED BLOOD COUNT 4.63 x10^6/uL (3.50-5.40); RED CELL DISTRIBUTION WIDTH 12.5 % (11.5-14.5); WHITE BLOOD COUNT 13.3 x10^3/uL (4.0-11.0)
--- NOTE | 2017-08-18 09:30 | PHYS DOC ---
Past Medical History Past Medical History: Anxiety, Cancer, COPD, Pancreatitis Additional Past Medical Histor: colon spasms, uterine cancer Past Surgical History: Appendectomy, Cholecystectomy, Hysterectomy, Tonsillectomy Additional Past Surgical Histo: hemorrhoidectomy, left leg surgery Alcohol Use: None Drug Use: None Adult General Chief Complaint Chief Complaint: NAUSEA/VOMITING/DIARRHA HPI HPI Patient is a 71 year old female presents with abdominal pain 71-year-old female past medical history of COPD and chronic pancreatitis for which she takes Creon, presents with vomiting. She's had some diarrhea also. She has some midepigastric and lower pain which radiates to the back. The pain is moderate to severe. She's also been fighting a "cough" for the last couple of weeks as has her son. Symptoms are somewhat worsening today. Pain became worse this morning. She's not had any fevers. No productive sputum. She does not have any chest pain. Review of Systems Review of Systems Constitutional: Denies fever or chills Eyes: Denies change in visual acuity, redness, or eye pain HENT: Denies nasal congestion or sore throat Respiratory: Positive cough Cardiovascular: No additional information not addressed in HPI GI: HPI : Denies dysuria or hematuria Musculoskeletal: Denies back pain or joint pain Integument: Denies rash or skin lesions Neurologic: Denies headache, focal weakness or sensory changes Endocrine: Denies polyuria or polydipsia All other systems were reviewed and found to be within normal limits, except as documented in this note. Current Medications Current Medications Current Medications Medications (Trade) Dose Ordered Sig/Tamiko Start Time Stop Time Status Last Admin Dose Admin Hydromorphone HCl (Dilaudid) 0.5 mg PRN Q15MIN PRN 08/18/17 09:15 08/19/17 09:14 08/18/17 09:21 0.5 MG Ondansetron HCl (Zofran) 4 mg PRN Q8HRS PRN 08/18/17 11:45 08/19/17 11:44 Allergies Allergies Allergies Coded Allergies Type Severity Reaction Last Updated Verified No Known Drug Allergies 08/18/17 No Physical Exam Physical Exam Constitutional: Well developed, no acute distress, non-toxic appearance. Somewhat cachectic appearing. HENT: Normocephalic, atraumatic, bilateral external ears normal, oropharynx moist, no oral exudates, nose normal. Eyes: PERRLA, EOMI, conjunctiva normal, no discharge. Neck: Normal range of motion, no tenderness, supple, no stridor. Cardiovascular:Heart rate regular rhythm, no murmur Lungs & Thorax: Decrease breath sounds bilaterally; no wheezing, rhonchi. Abdomen: Bowel sounds normal, there is moderate epigastric tenderness to palpation; no RLQ tenderness. Skin: Warm, dry, no erythema, no rash. Back: No tenderness, no CVA tenderness. Extremities: No tenderness, no cyanosis, no clubbing, ROM intact, no edema. Neurologic: Alert and oriented X 3, normal motor function, normal sensory function, no focal deficits noted. Psychologic: Affect normal, judgement normal, mood normal. Pleasant mood and affect.[] Current Patient Data Vital Signs Vital Signs Date Time Temp Pulse Resp B/P (MAP) Pulse Ox O2 Delivery O2 Flow Rate FiO2 08/18/17 09:21 24 95 Room Air 08/18/17 08:55 98.4 94 165/62 (96) 98.4 Lab Values Laboratory Tests Test 08/18/17 09:15 White Blood Count 13.3 x10^3/uL (4.0-11.0) H Red Blood Count 4.63 x10^6/uL (3.50-5.40) Hemoglobin 15.5 g/dL (12.0-15.5) Hematocrit 45.0 % (36.0-47.0) Mean Corpuscular Volume 97 fL (79-100) Mean Corpuscular Hemoglobin 33 pg (25-35) Mean Corpuscular Hemoglobin Concent 34 g/dL (31-37) Red Cell Distribution Width 12.5 % (11.5-14.5) Platelet Count 348 x10^3/uL (140-400) Neutrophils (%) (Auto) 79 % (31-73) H Lymphocytes (%) (Auto) 14 % (24-48) L Monocytes (%) (Auto) 5 % (0-9) Eosinophils (%) (Auto) 1 % (0-3) Basophils (%) (Auto) 1 % (0-3) Neutrophils # (Auto) 10.6 x10^3uL (1.8-7.7) H Lymphocytes # (Auto) 1.8 x10^3/uL (1.0-4.8) Monocytes # (Auto) 0.7 x10^3/uL (0.0-1.1) Eosinophils # (Auto) 0.1 x10^3/uL (0.0-0.7) Basophils # (Auto) 0.2 x10^3/uL (0.0-0.2) Sodium Level 139 mmol/L (136-145) Potassium Level 3.9 mmol/L (3.5-5.1) Chloride Level 102 mmol/L (98-107) Carbon Dioxide Level 26 mmol/L (21-32) Anion Gap 11 (6-14) Blood Urea Nitrogen 17 mg/dL (7-20) Creatinine 1.1 mg/dL (0.6-1.0) H Estimated GFR (Cockcroft-Gault) 48.7 BUN/Creatinine Ratio 15 (6-20) Glucose Level 105 mg/dL (70-99) H Calcium Level 9.2 mg/dL (8.5-10.1) Total Bilirubin 0.6 mg/dL (0.2-1.0) Aspartate Amino Transferase (AST) 19 U/L (15-37) Alanine Aminotransferase (ALT) 21 U/L (14-59) Alkaline Phosphatase 94 U/L (46-116) Total Protein 8.1 g/dL (6.4-8.2) Albumin 4.0 g/dL (3.4-5.0) Albumin/Globulin Ratio 1.0 (1.0-1.7) Lipase 260 U/L (73-393) Laboratory Tests 08/18/17 09:15 Laboratory Tests 08/18/17 09:15 EKG EKG NSR with LAD, rate of 80, no STEMI. Radiology/Procedures Radiology/Procedures []PROCEDURE: CT ABDOMEN PELVIS WO CONTRAST CT abdomen and pelvis without contrast 08/18/2017 Clinical indication: Abdominal pain, low back pain, history of pancreatitis. Comparison: CTA abdomen and pelvis 06/06/2017 Technique: Multiple CT images of the abdomen and pelvis were obtained without contrast according to standard protocol. PQRS Compliance Statement: One or more of the following individualized dose reduction techniques were utilized for this examination: 1. Automated exposure control 2. Adjustment of the mA and/or kV according to patient size 3. Use of iterative reconstruction technique Findings: There is severe centrilobular emphysema in the lung bases. Heart size is normal with coronary artery calcifications. Evaluation of the solid abdominal pelvic viscera, lymphadenopathy and vasculature is limited in the absence of intravenous contrast. There are few stable hepatic hypodensities which are too small definitively characterize as seen in hepatic segment 4B series 2/image 18, and intrahepatic segment 2 series 2/image 13. There is stable intra and extrahepatic biliary ductal dilatation over multiple prior examinations. Prior cholecystectomy. Unenhanced contours of the spleen, right adrenal gland, and pancreas are grossly unremarkable. There is stable mild low-attenuation thickening of the left adrenal gland. There is a stable interpolar right renal. There is a tiny, 4 mm high density lesion in the interpolar left kidney series 2/image 21 and in the medial aspect of the interpolar left kidney measuring 2 mm series 2/image 23, indeterminate. No hydronephrosis. There is infrarenal abdominal aortic ectasia with extensive calcified atheromatous disease including the origins of the major branch vessels. There is stable focal outpouching of the left lateral aspect infrarenal abdominal aorta. Small and large bowel loops are normal in caliber without obstruction. No pneumatosis or pneumoperitoneum. No abdominal free fluid. Urinary bladder is decompressed. Prior hysterectomy. The vaginal cuff is unremarkable. No pelvic free fluid. There are no destructive osseous lesions. Impression: 1. No noncontrast evidence of acute abdominal or pelvic process, though evaluation is limited due to lack of intravenous and enteric contrast. 2. No bowel obstruction or free fluid. 3. Dense calcification of the abdominal aorta and major branch vessels. 4. Stable bile or ductal dilatation, which may be reservoir effect from prior cholecystectomy. 5. Two subcentimeter high density left renal lesions, indeterminate and may represent hemorrhagic cysts. Attention on follow-up imaging is recommended. 6. Severe pulmonary emphysema. 7. Stable low-attenuation thickening of the left adrenal gland, likely hyperplasia or benign adenomatous change. DICTATED and SIGNED BY: ALEXANDRO WINSLOW MD DATE: 08/18/17 1018 Course & Med Decision Making Course & Med Decision Making Pertinent Labs and Imaging studies reviewed. (See chart for details) 1130: Mildly elevated WBC; lipase within normal range. Abd/Pelvis CT without surgical findings. Still having pain and she does agree to admission for pain control, further observation and possibly further diagnostics. Dx: abdominal pain. Admitted in stable condition. Dx: abdominal pain 1212p: Patient was admitted. She then told the nurse she was going to leave AGAINST MEDICAL ADVICE. She refused to wait for prescriptions or dismissal instructions. She also refused to wait for her chest x-ray which was still pending. I was going to treat with some antibiotics and give dismissal instructions she refused to wait for those to be printed. She was advised to return for any worsening symptoms. She understood the risks including disability or . Disposition is changed to left AGAINST MEDICAL ADVICE. Dragon Disclaimer Dragon Disclaimer This electronic medical record was generated, in whole or in part, using a voice recognition dictation system. Departure Departure Referrals: GEETA REES Jr, MD (PCP) Scripts Ciprofloxacin Hcl (CIPRO) 500 Mg Tablet 1 TAB PO BID, #14 TAB Prov: DORIS FELDMAN MD 08/18/17 Metronidazole (FLAGYL) 500 Mg Tablet 1 TAB PO QID, #28 TAB Prov: DORIS FELDMAN MD 08/18/17 DORIS FELDMAN MD Aug 18, 2017 09:30
[2017-08-18 09:33] LABS: CALCIUM 9.2 mg/dL (8.5-10.1); CREATININE 1.1 mg/dL (0.6-1.0); GFR 48.7; POTASSIUM 3.9 mmol/L (3.5-5.1)
[2017-08-18 09:39] LABS: TOTAL BILIRUBIN 0.6 mg/dL (0.2-1.0); TOTAL PROTEIN 8.1 g/dL (6.4-8.2)
--- NOTE | 2017-08-18 10:36 | RAD ---
CT abdomen and pelvis without contrast 08/18/2017 Clinical indication: Abdominal pain, low back pain, history of pancreatitis. Comparison: CTA abdomen and pelvis 06/06/2017 Technique: Multiple CT images of the abdomen and pelvis were obtained without contrast according to standard protocol. PQRS Compliance Statement: One or more of the following individualized dose reduction techniques were utilized for this examination: 1. Automated exposure control 2. Adjustment of the mA and/or kV according to patient size 3. Use of iterative reconstruction technique Findings: There is severe centrilobular emphysema in the lung bases. Heart size is normal with coronary artery calcifications. Evaluation of the solid abdominal pelvic viscera, lymphadenopathy and vasculature is limited in the absence of intravenous contrast. There are few stable hepatic hypodensities which are too small definitively characterize as seen in hepatic segment 4B series 2/image 18, and intrahepatic segment 2 series 2/image 13. There is stable intra and extrahepatic biliary ductal dilatation over multiple prior examinations. Prior cholecystectomy. Unenhanced contours of the spleen, right adrenal gland, and pancreas are grossly unremarkable. There is stable mild low-attenuation thickening of the left adrenal gland. There is a stable interpolar right renal. There is a tiny, 4 mm high density lesion in the interpolar left kidney series 2/image 21 and in the medial aspect of the interpolar left kidney measuring 2 mm series 2/image 23, indeterminate. No hydronephrosis. There is infrarenal abdominal aortic ectasia with extensive calcified atheromatous disease including the origins of the major branch vessels. There is stable focal outpouching of the left lateral aspect infrarenal abdominal aorta. Small and large bowel loops are normal in caliber without obstruction. No pneumatosis or pneumoperitoneum. No abdominal free fluid. Urinary bladder is decompressed. Prior hysterectomy. The vaginal cuff is unremarkable. No pelvic free fluid. There are no destructive osseous lesions. Impression: 1. No noncontrast evidence of acute abdominal or pelvic process, though evaluation is limited due to lack of intravenous and enteric contrast. 2. No bowel obstruction or free fluid. 3. Dense calcification of the abdominal aorta and major branch vessels. 4. Stable bile or ductal dilatation, which may be reservoir effect from prior cholecystectomy. 5. Two subcentimeter high density left renal lesions, indeterminate and may represent hemorrhagic cysts. Attention on follow-up imaging is recommended. 6. Severe pulmonary emphysema. 7. Stable low-attenuation thickening of the left adrenal gland, likely hyperplasia or benign adenomatous change.
[2017-08-18] MEDS ORDERED: ONDANSETRON PF 4 MG/2 ML VIAL. IV PRN ×2 (11:45→12:15)
[2017-08-18 12:00] VITALS: BP 120/54
[2017-08-18] MEDS ORDERED: METR500T PO (12:09)
[2017-08-18] MEDS ORDERED: CIPR500T94 PO (12:09)
[2017-08-18] MEDS ORDERED: traMADol 50 MG TABLET PO PRN (12:15)
[2017-08-18] MEDS ORDERED: cloNIDine HCL 0.1 MG TABLET PO PRN (12:15)
[2017-08-18] MEDS ORDERED: KETOROLAC 15 MG/ML VIAL. IV PRN (12:15)
[2017-08-18] MEDS ORDERED: MORPHINE SULFATE 2 MG/ML DISP.SYRIN. IV PRN (12:15)
[2017-08-18] MEDS ORDERED: NICOTINE 21MG PATCH. TD PRN (12:15)
--- NOTE | 2017-08-18 13:17 | EKG ---
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
[2017-08-18] MEDS ORDERED: ALBUTEROL SULFATE 2.5 MG/3 ML NEBU. NEB SCH (14:00)
[2017-08-18] MEDS ORDERED: LIPASE PO SCH (16:30)
[2017-08-18] MEDS ORDERED: AMYLASE PO SCH (16:30)
[2017-08-18] MEDS ORDERED: PROTEASE PO SCH (16:30)
[2017-08-18] MEDS ORDERED: NON FORMULARY ITEM (Albuterol Sulfate (Proair Hfa Inhaler) 2 PUFF) IH SCH (21:00)
[2017-08-19] MEDS ORDERED: ASPIRIN ENTERIC COATED 81 MG TABLET.DR. PO SCH (09:00)
[2017-08-19] MEDS ORDERED: NICOTINE 21MG PATCH. TD SCH (09:00)
[2017-08-19] MEDS ORDERED: POLYETHYLENE GLYCOL 3350 17 GM PACKET. PO SCH (09:00)
[2017-08-19] MEDS ORDERED: SERTRALINE 50 MG TABLET. PO SCH (09:00)
== END 2017-08-18 12:12 | disposition left against medical advice (07) ==
LOC: ER 08:49
DX: R10.13 Epigastric pain (principal); R11.2 Nausea with vomiting, unspecified; R19.7 Diarrhea, unspecified; Z90.49 Acquired absence of other specified parts of digestive tract; Z90.710 Acquired absence of both cervix and uterus
CPT/HCPCS: 36415; 74176; 80053; 83690; 85025; 93005; 96374; 96375; 99285; J1170; J2405

== ENCOUNTER 2017-12-30 21:03 | Emergency (ER) | payer MEDICARE ==
[2017-12-30 21:45] LABS: ADD MAN DIFF? NO
[2017-12-30] MEDS: IOHEXOL 300 MG/ML 100ML VIAL. IV (21:45)
[2017-12-30 21:48] LABS: BASO # 0.1 x10^3/uL (0.0-0.2); BASO % 1 % (0-3); EOS # 0.2 x10^3/uL (0.0-0.7); EOS % 2 % (0-3); HEMATOCRIT 45.4 % (36.0-47.0); HEMOGLOBIN 15.8 g/dL (12.0-15.5); LYMPH % 27 % (24-48); MEAN CORPUSCULAR HEMOGLOBIN 34 pg (25-35); MEAN CORPUSCULAR HGB CONC 35 g/dL (31-37); MEAN CORPUSCULAR VOLUME 97 fL (79-100); MONO # 0.8 x10^3/uL (0.0-1.1); MONO % 8 % (0-9); NEUT % 63 % (31-73); PLATELET COUNT 272 x10^3/uL (140-400); RED BLOOD COUNT 4.68 x10^6/uL (3.50-5.40); RED CELL DISTRIBUTION WIDTH 13.1 % (11.5-14.5); WHITE BLOOD COUNT 11.1 x10^3/uL (4.0-11.0)
[2017-12-30] MEDS: IPRATRPIUM/ALBUTEROL 0.5/2.5MG 3 ML NEBU. NEB (21:48)
[2017-12-30] MEDS: ONDANSETRON PF 4 MG/2 ML VIAL. IV (21:50)
[2017-12-30] MEDS: methylPREDNISolone SOD SUCC PF 125 MG/2 ML VIAL. IV (21:52)
[2017-12-30] MEDS: IV NORMAL SALINE 1000ML BAG 1,000 ML IV (21:54)
[2017-12-30] MEDS: PANTOPRAZOLE IV PUSH 40 MG VIAL. IVP (21:54)
[2017-12-30 21:56] LABS: ANION GAP 11 (6-14); BLOOD UREA NITROGEN 16 mg/dL (7-20); BUN/CREATININE RATIO 15 (6-20); CARBON DIOXIDE 27 mmol/L (21-32); CHLORIDE 100 mmol/L (98-107); CREATININE 1.1 mg/dL (0.6-1.0); GFR 48.6; GLUCOSE 109 mg/dL (70-99); POTASSIUM 3.8 mmol/L (3.5-5.1); SODIUM 138 mmol/L (136-145)
[2017-12-30] MEDS ORDERED: CONTRAST GIVEN MC (22:00)
[2017-12-30 22:02] LABS: ALBUMIN 3.8 g/dL (3.4-5.0); ALBUMIN/GLOBULIN RATIO 1.1 (1.0-1.7); ALK PHOS 71 U/L (46-116); ALT (SGPT) 19 U/L (14-59); AST (SGOT) 16 U/L (15-37); LIPASE 159 U/L (73-393); TOTAL BILIRUBIN 0.5 mg/dL (0.2-1.0); TOTAL PROTEIN 7.3 g/dL (6.4-8.2)
[2017-12-30 22:10] LABS: TROPONINI < 0.017 ng/mL (0.000-0.055)
[2017-12-30 23:19] LABS: BILIRUBIN,URINE NEGATIVE (NEG); CLARITY,URINE CLEAR; COLOR,URINE YELLOW; GLUCOSE,URINE NEGATIVE (NEG); NITRITE,URINE NEGATIVE (NEG); PROTEIN,URINE NEGATIVE (NEG-TRACE); UROBILINOGEN,URINE 0.2 mg/dL (0.2 mg/dL)
[2017-12-30 23:21] LABS: BACTERIA,URINE 0 /HPF (0-FEW); SQUAMOUS EPITHELIAL CELL,UR OCC /LPF; WBC,URINE OCC /HPF (0-4)
[2017-12-30] MEDS: HYDROcodone/APAP 5/325MG 1 TAB TABLET PO (23:28)
== END 2017-12-31 01:00 | disposition home or self-care (01) ==
LOC: ER 12-31 01:00
DX: J44.1 Chronic obstructive pulmonary disease with (acute) exacerbation (principal); R10.13 Epigastric pain; R11.0 Nausea; Z90.49 Acquired absence of other specified parts of digestive tract; Z90.710 Acquired absence of both cervix and uterus; Z72.0 Tobacco use
CPT/HCPCS: 36415; 71045; 74177; 80053; 81001; 83690; 84484; 85025; 93005; 94640; 96374; 96375; 99285-25; C9113; J2060; J2405; J2930; J7030; J7620; Q9967

== ENCOUNTER 2018-05-19 10:00 | Emergency (ER) | payer MEDICARE ==
[~2018-05-19] VITALS: Ht 165.1 cm; Wt 42.2 kg
[~2018-05-19 10:00] MED LIST changes: +PRED50TA PO
--- NOTE | 2018-05-19 10:54 | PHYS DOC ---
Past Medical History Past Medical History: Anxiety, Cancer, COPD, Pancreatitis Additional Past Medical Histor: colon spasms, uterine cancer Past Surgical History: Appendectomy, Cholecystectomy, Hysterectomy, Tonsillectomy Additional Past Surgical Histo: hemorrhoidectomy, left leg surgery Alcohol Use: None Drug Use: None Adult General Chief Complaint Chief Complaint: WEAKNESS/GENERALIZED HPI HPI Patient is a 72 year old female who presented to ER today for evaluation of epigastric abdominal pain, nausea, vomiting, diarrhea for about 2 weeks. Symptoms get worse this morning. She denies any fever, no blood in her stool. Patient denies any recent antibiotic use it. Patient says she has history of pancreatitis. She had no cough, no trouble breathing, no chest pain. Review of Systems Review of Systems Constitutional: Denies fever or chills [] Eyes: Denies change in visual acuity, redness, or eye pain [] HENT: Denies nasal congestion or sore throat [] Respiratory: Denies cough or shortness of breath [] Cardiovascular: No additional information not addressed in HPI [] GI: POSITIVE FOR abdominal pain, nausea, vomiting, diarrhea [] : Denies dysuria or hematuria [] Musculoskeletal: Denies back pain or joint pain [] Integument: Denies rash or skin lesions [] Neurologic: Denies headache, focal weakness or sensory changes [] Endocrine: Denies polyuria or polydipsia [] All other systems were reviewed and found to be within normal limits, except as documented in this note. Current Medications Current Medications Current Medications Medications (Trade) Dose Ordered Sig/Tamiko Start Time Stop Time Status Last Admin Dose Admin Fentanyl Citrate (Fentanyl 2ml Vial) 75 mcg 1X ONCE 05/19/18 13:30 05/19/18 13:31 DC Iohexol (Omnipaque 300 Mg/ml) 60 ml 1X ONCE 05/19/18 13:00 05/19/18 13:01 DC 05/19/18 12:49 60 ML Ondansetron HCl (Zofran) 4 mg 1X ONCE 05/19/18 11:15 05/19/18 11:16 DC 05/19/18 11:10 4 MG Sodium Chloride 1,000 ml @ 1,000 mls/hr Q1H 05/19/18 11:00 05/19/18 11:59 DC 05/19/18 11:11 1,000 MLS/HR Allergies Allergies Allergies Coded Allergies Type Severity Reaction Last Updated Verified No Known Drug Allergies 08/18/17 No Physical Exam Physical Exam Constitutional: Well developed, well nourished, no acute distress, non-toxic appearance. [] HENT: Normocephalic, atraumatic, bilateral external ears normal, oropharynx moist, no oral exudates, nose normal. [] Eyes: PERRLA, EOMI, conjunctiva normal, no discharge. [] Neck: Normal range of motion, no tenderness, supple, no stridor. [] Cardiovascular:Heart rate regular rhythm, no murmur [] Lungs & Thorax: Bilateral breath sounds clear to auscultation [] Abdomen: Bowel sounds normal, soft, tenderness IN EPIGASTRIC AREA, no masses, no pulsatile masses. [] Skin: Warm, dry, no erythema, no rash. [] Back: No tenderness, no CVA tenderness. [] Extremities: No tenderness, no cyanosis, no clubbing, ROM intact, no edema. [] Neurologic: Alert and oriented X 3, normal motor function, normal sensory function, no focal deficits noted. [] Psychologic: Affect normal, judgement normal, mood normal. [] Current Patient Data Vital Signs Vital Signs Date Time Temp Pulse Resp B/P (MAP) Pulse Ox O2 Delivery O2 Flow Rate FiO2 05/19/18 13:26 18 95 Room Air 05/19/18 10:52 98.4 60 128/66 (86) 98.4 Lab Values Laboratory Tests Test 05/19/18 10:15 05/19/18 10:50 Urine Collection Type Unknown Urine Color Yellow Urine Clarity Clear Urine pH 5.0 Urine Specific [place] 1.020 Urine Protein 30 mg/dL (NEG-TRACE) Urine Glucose (UA) Negative mg/dL (NEG) Urine Ketones (Stick) Negative mg/dL (NEG) Urine Blood Large (NEG) Urine Nitrite Negative (NEG) Urine Bilirubin Negative (NEG) Urine Urobilinogen Dipstick 0.2 mg/dL (0.2 mg/dL) Urine Leukocyte Esterase Negative (NEG) Urine RBC 6-10 /HPF (0-2) Urine WBC 0 /HPF (0-4) Urine Squamous Epithelial Cells Occ /LPF Urine Bacteria 0 /HPF (0-FEW) White Blood Count 8.3 x10^3/uL (4.0-11.0) Red Blood Count 4.38 x10^6/uL (3.50-5.40) Hemoglobin 14.9 g/dL (12.0-15.5) Hematocrit 42.4 % (36.0-47.0) Mean Corpuscular Volume 97 fL (79-100) Mean Corpuscular Hemoglobin 34 pg (25-35) Mean Corpuscular Hemoglobin Concent 35 g/dL (31-37) Red Cell Distribution Width 13.0 % (11.5-14.5) Platelet Count 274 x10^3/uL (140-400) Neutrophils (%) (Auto) 73 % (31-73) Lymphocytes (%) (Auto) 15 % (24-48) L Monocytes (%) (Auto) 9 % (0-9) Eosinophils (%) (Auto) 2 % (0-3) Basophils (%) (Auto) 1 % (0-3) Neutrophils # (Auto) 6.1 x10^3uL (1.8-7.7) Lymphocytes # (Auto) 1.3 x10^3/uL (1.0-4.8) Monocytes # (Auto) 0.7 x10^3/uL (0.0-1.1) Eosinophils # (Auto) 0.2 x10^3/uL (0.0-0.7) Basophils # (Auto) 0.1 x10^3/uL (0.0-0.2) Prothrombin Time 12.4 SEC (11.7-14.0) Prothrombin Time INR 1.0 (0.8-1.1) PTT 30 SEC (24-38) Sodium Level 141 mmol/L (136-145) Potassium Level 4.2 mmol/L (3.5-5.1) Chloride Level 102 mmol/L (98-107) Carbon Dioxide Level 28 mmol/L (21-32) Anion Gap 11 (6-14) Blood Urea Nitrogen 17 mg/dL (7-20) Creatinine 1.2 mg/dL (0.6-1.0) H Estimated GFR (Cockcroft-Gault) 43.9 BUN/Creatinine Ratio 14 (6-20) Glucose Level 93 mg/dL (70-99) Calcium Level 9.5 mg/dL (8.5-10.1) Magnesium Level 2.3 mg/dL (1.8-2.4) Total Bilirubin 0.6 mg/dL (0.2-1.0) Aspartate Amino Transferase (AST) 19 U/L (15-37) Alanine Aminotransferase (ALT) 20 U/L (14-59) Alkaline Phosphatase 90 U/L (46-116) Troponin I Quantitative < 0.017 ng/mL (0.000-0.055) Total Protein 7.3 g/dL (6.4-8.2) Albumin 4.1 g/dL (3.4-5.0) Albumin/Globulin Ratio 1.3 (1.0-1.7) Lipase 236 U/L (73-393) Laboratory Tests 05/19/18 10:50 Laboratory Tests 05/19/18 10:50 EKG EKG [] Radiology/Procedures Radiology/Procedures [][facility] [address] [place] [address] IMAGING REPORT Signed PATIENT: CLAUDIA BAUTISTA ACCOUNT: [id number] : 1945 LOCATION: ER AGE: 72 SEX: F EXAM STATUS: REG ER ORD. PHYSICIAN: ELLIOTT LOREDO DO REASON: abdominal pain PROCEDURE: CT ABD PELV W/ IV CONTRST ONLY CT abdomen and pelvis with contrast History: Generalized abdominal pain and cramping Technique: After the administration of intravenous contrast, CT imaging was performed of the abdomen and pelvis. No oral contrast was given as per request. Multiplanar images are reviewed. Exposure: One or more of the following individualized dose reduction techniques were utilized for this examination: 1. Automated exposure control 2. Adjustment of the mA and/or kV according to patient size 3. Use of iterative reconstruction technique. Contrast: 60 cc Omnipaque 300 Comparison: December 30, 2017 Findings: There is emphysema of the visualized lung bases. There is new pneumobilia of the left lobe of the liver. There is again degree of mild extrahepatic biliary ductal dilatation although less prominent. Degree of intrahepatic biliary ductal dilatation appears slightly decreased. Small hypodense lesion of the left lobe of the liver about 0.4 cm axial image 22 is stable, otherwise difficult to accurately characterize. Tiny hypodense lesion near the dome of the liver 0.2 cm axial image 7 is also unchanged. There is atherosclerotic calcification abdominal aorta, mild relative ectasia of the infrarenal abdominal aorta at 2.3 cm versus remainder of the caliber about 1.5 cm. There is also atherosclerotic calcification of the iliac arteries bilaterally resulting in more significant stenosis on the left, to a lesser degree on the right. There is again 1.4 cm hypodense lesion of the mid lateral right kidney, cyst favored. There are some other smaller hypodense foci of the bilateral kidneys too small to accurately characterize. There is no adrenal nodularity. There is stent in the proximal celiac artery near origin. There is again visualization of the pancreatic duct. No new focal abnormality is identified of the pancreas or spleen. There is distention of the urinary bladder. Bowel is not considered significantly dilated. There are some air-fluid levels in the colon. There is suggestion of mild wall thickening of the more distal sigmoid colon although not well distended during exam. Appendix is not confidently identified if still present. No free air or significant localized extraluminal fluid collection is identified. Impression: 1. There are some nonspecific air-fluid levels in the colon, could be associated with diarrheal state in the appropriate clinical setting. Bowel is not significantly dilated. There is possible mild wall thickening of the more distal sigmoid colon as can be seen with colitis in the appropriate clinical setting although limited evaluation without oral contrast. 2. There is new nonspecific pneumobilia, degree of intrahepatic and extra hepatic biliary ductal dilatation somewhat decreased. There is again visualization of the pancreatic duct. 3. There are again stenoses of the iliac arteries greater on the left due to calcified plaque. There is similar mild ectasia of the infrarenal abdominal aorta. 4. Urinary bladder is somewhat distended. 5. There is emphysema. 6. There are hypodense foci of the bilateral kidneys, largest on the right suggestive of cyst, other smaller foci too small to accurately characterize. Electronically signed by: Kylee Atwood MD (05/19/2018 1:19 PM) [id number] DICTATED and SIGNED BY: KYLEE ATWOOD MD DATE: 05/19/18 4771 Course & Med Decision Making Course & Med Decision Making Pertinent Labs and Imaging studies reviewed. (See chart for details) work up included CT scan of abdomen and pelvic were normal. Patient felt much better, will discharge patient home, follow up with her GI doctor for further evaluation. Dragon Disclaimer Dragon Disclaimer This electronic medical record was generated, in whole or in part, using a voice recognition dictation system. Departure Departure Impression: Primary Impression: Abdominal pain Disposition: 01 HOME, SELF-CARE Condition: STABLE Referrals: GEETA REES Jr, MD (PCP) follow up with your GI doctor for further evaluation Patient Instructions: Abdominal Pain Scripts Tramadol Hcl (TRAMADOL HCL) 50 Mg Tablet 50 MG PO Q6HRS PRN for PAIN, #20 TAB 0 Refills Prov: ELLIOTT LOREDO DO 05/19/18 ELLIOTT LOREDO DO May 19, 2018 10:54
[2018-05-19] MEDS ORDERED: IV NORMAL SALINE 1000ML BAG 1,000 ML IV SCH (11:00)
[2018-05-19 11:04] LABS: BILIRUBIN,URINE NEGATIVE (NEG); CLARITY,URINE CLEAR; COLOR,URINE YELLOW; NITRITE,URINE NEGATIVE (NEG); PROTEIN,URINE 30 mg/dL (NEG-TRACE); UROBILINOGEN,URINE 0.2 mg/dL (0.2 mg/dL)
[2018-05-19 11:11] LABS: BACTERIA,URINE 0 /HPF (0-FEW); SQUAMOUS EPITHELIAL CELL,UR OCC /LPF; WBC,URINE 0 /HPF (0-4)
[2018-05-19] MEDS ORDERED: fentaNYL PF VIAL 100 MCG/2 ML VIAL IV ONE ×3 (11:15→13:30)
[2018-05-19] MEDS ORDERED: ONDANSETRON PF 4 MG/2 ML VIAL. IV ONE (11:15)
[2018-05-19 11:20] LABS: BASO # 0.1 x10^3/uL (0.0-0.2); BASO % 1 % (0-3); EOS # 0.2 x10^3/uL (0.0-0.7); EOS % 2 % (0-3); HEMATOCRIT 42.4 % (36.0-47.0); HEMOGLOBIN 14.9 g/dL (12.0-15.5); LYMPH # 1.3 x10^3/uL (1.0-4.8); LYMPH % 15 % (24-48); MEAN CORPUSCULAR HEMOGLOBIN 34 pg (25-35); MEAN CORPUSCULAR HGB CONC 35 g/dL (31-37); MEAN CORPUSCULAR VOLUME 97 fL (79-100); MONO # 0.7 x10^3/uL (0.0-1.1); MONO % 9 % (0-9); NEUT # 6.1 x10^3uL (1.8-7.7); NEUT % 73 % (31-73); PLATELET COUNT 274 x10^3/uL (140-400); RED BLOOD COUNT 4.38 x10^6/uL (3.50-5.40); WHITE BLOOD COUNT 8.3 x10^3/uL (4.0-11.0)
[2018-05-19 11:28] LABS: CALCIUM 9.5 mg/dL (8.5-10.1); CREATININE 1.2 mg/dL (0.6-1.0); GFR 43.9; POTASSIUM 4.2 mmol/L (3.5-5.1)
[2018-05-19 11:33] LABS: ALBUMIN 4.1 g/dL (3.4-5.0); ALBUMIN/GLOBULIN RATIO 1.3 (1.0-1.7); MAGNESIUM 2.3 mg/dL (1.8-2.4); TOTAL BILIRUBIN 0.6 mg/dL (0.2-1.0); TOTAL PROTEIN 7.3 g/dL (6.4-8.2)
[2018-05-19 11:36] LABS: PROTHROMBIN TIME PATIENT 12.4 SEC (11.7-14.0)
--- NOTE | 2018-05-19 12:24 | EKG ---
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
[2018-05-19] MEDS ORDERED: IOHEXOL 300 MG/ML 100ML VIAL. IV ONE (13:00)
--- NOTE | 2018-05-19 13:22 | RAD ---
CT abdomen and pelvis with contrast History: Generalized abdominal pain and cramping Technique: After the administration of intravenous contrast, CT imaging was performed of the abdomen and pelvis. No oral contrast was given as per request. Multiplanar images are reviewed. Exposure: One or more of the following individualized dose reduction techniques were utilized for this examination: 1. Automated exposure control 2. Adjustment of the mA and/or kV according to patient size 3. Use of iterative reconstruction technique. Contrast: 60 cc Omnipaque 300 Comparison: December 30, 2017 Findings: There is emphysema of the visualized lung bases. There is new pneumobilia of the left lobe of the liver. There is again degree of mild extrahepatic biliary ductal dilatation although less prominent. Degree of intrahepatic biliary ductal dilatation appears slightly decreased. Small hypodense lesion of the left lobe of the liver about 0.4 cm axial image 22 is stable, otherwise difficult to accurately characterize. Tiny hypodense lesion near the dome of the liver 0.2 cm axial image 7 is also unchanged. There is atherosclerotic calcification abdominal aorta, mild relative ectasia of the infrarenal abdominal aorta at 2.3 cm versus remainder of the caliber about 1.5 cm. There is also atherosclerotic calcification of the iliac arteries bilaterally resulting in more significant stenosis on the left, to a lesser degree on the right. There is again 1.4 cm hypodense lesion of the mid lateral right kidney, cyst favored. There are some other smaller hypodense foci of the bilateral kidneys too small to accurately characterize. There is no adrenal nodularity. There is stent in the proximal celiac artery near origin. There is again visualization of the pancreatic duct. No new focal abnormality is identified of the pancreas or spleen. There is distention of the urinary bladder. Bowel is not considered significantly dilated. There are some air-fluid levels in the colon. There is suggestion of mild wall thickening of the more distal sigmoid colon although not well distended during exam. Appendix is not confidently identified if still present. No free air or significant localized extraluminal fluid collection is identified. Impression: 1. There are some nonspecific air-fluid levels in the colon, could be associated with diarrheal state in the appropriate clinical setting. Bowel is not significantly dilated. There is possible mild wall thickening of the more distal sigmoid colon as can be seen with colitis in the appropriate clinical setting although limited evaluation without oral contrast. 2. There is new nonspecific pneumobilia, degree of intrahepatic and extra hepatic biliary ductal dilatation somewhat decreased. There is again visualization of the pancreatic duct. 3. There are again stenoses of the iliac arteries greater on the left due to calcified plaque. There is similar mild ectasia of the infrarenal abdominal aorta. 4. Urinary bladder is somewhat distended. 5. There is emphysema. 6. There are hypodense foci of the bilateral kidneys, largest on the right suggestive of cyst, other smaller foci too small to accurately characterize. Electronically signed by: Clarence Du MD (05/19/2018 1:19 PM) [id number]
[2018-05-19] MEDS ORDERED: TRAM50TA PO (13:39)
[2018-05-19 13:48] VITALS: BP 113/51
== END 2018-05-19 13:50 | disposition home or self-care (01) ==
LOC: ER 10:00
DX: R10.13 Epigastric pain (principal); R11.2 Nausea with vomiting, unspecified; R19.7 Diarrhea, unspecified; J43.9 Emphysema, unspecified; N32.89 Other specified disorders of bladder; K83.8 Other specified diseases of biliary tract; Z90.49 Acquired absence of other specified parts of digestive tract; Z90.89 Acquired absence of other organs; Z90.710 Acquired absence of both cervix and uterus; Z98.890 Other specified postprocedural states
CPT/HCPCS: 36415; 74177; 80053; 81001; 83690; 83735; 84484; 85025; 85610; 85730; 93005; 96361; 96374; 96375; 96376; 99285; J2405; J3010; J7030; Q9967

== ENCOUNTER 2018-08-07 07:36 | Emergency (ER) | payer MEDICARE ==
[~2018-08-07] VITALS: Ht 165.1 cm; Wt 43.1 kg
[~2018-08-07 07:36] MED LIST changes: -HYDR-2758 PO; +HYDR-2761 PO; -HYDR-2762 PO; +HYDR-2765 PO; +HYDR-3164 PO; -HYDR-971 PO
[2018-08-07] MEDS ORDERED: IV NORMAL SALINE 1000ML BAG 1,000 ML IV SCH (07:58)
[2018-08-07] MEDS ORDERED: ONDANSETRON PF 4 MG/2 ML VIAL. IV ONE (08:00)
[2018-08-07] MEDS ORDERED: IOHEXOL 300 MG/ML 100ML VIAL. IV ONE (08:15)
[2018-08-07] MEDS ORDERED: CONTRAST GIVEN. MC PRN (08:15)
[2018-08-07] MEDS ORDERED: IOHEXOL 240 MG/ML 50ML VIAL. PO ONE (08:15)
[2018-08-07 08:31] LABS: BASO # 0.1 x10^3/uL (0.0-0.2); BASO % 1 % (0-3); EOS # 0.1 x10^3/uL (0.0-0.7); EOS % 1 % (0-3); HEMATOCRIT 41.8 % (36.0-47.0); HEMOGLOBIN 14.3 g/dL (12.0-15.5); LYMPH # 1.7 x10^3/uL (1.0-4.8); LYMPH % 21 % (24-48); MEAN CORPUSCULAR HEMOGLOBIN 33 pg (25-35); MEAN CORPUSCULAR HGB CONC 34 g/dL (31-37); MEAN CORPUSCULAR VOLUME 97 fL (79-100); MONO # 0.7 x10^3/uL (0.0-1.1); MONO % 8 % (0-9); NEUT # 5.5 x10^3uL (1.8-7.7); NEUT % 68 % (31-73); PLATELET COUNT 279 x10^3/uL (140-400); RED BLOOD COUNT 4.31 x10^6/uL (3.50-5.40); RED CELL DISTRIBUTION WIDTH 13.6 % (11.5-14.5)
--- NOTE | 2018-08-07 08:35 | RAD ---
Portable chest, 08/07/2018: HISTORY: COPD, shortness of breath Comparison is made to a study from 12/30/2017. The heart size is normal. There is calcific plaquing of the aorta. There are emphysematous changes in the lungs with scattered parenchymal scars. No acute infiltrate is seen. There is no evidence of pneumothorax or pleural fluid. The bony structures are demineralized. IMPRESSION: 1. Emphysema with parenchymal scarring. 2. No acute abnormality is detected. Electronically signed by: Stevo Hagan MD (08/07/2018 8:32 AM) [facility]
[2018-08-07] MEDS: MORPHINE SULFATE 4 MG/ML VIAL. IV/SQ PRN ×2 (08:37→10:06)
[2018-08-07 08:45] LABS: CALCIUM 9.4 mg/dL (8.5-10.1); CREATININE 1.1 mg/dL (0.6-1.0); GFR 48.6; POTASSIUM 3.8 mmol/L (3.5-5.1)
[2018-08-07 08:52] LABS: ALBUMIN 3.7 g/dL (3.4-5.0); ALBUMIN/GLOBULIN RATIO 1.2 (1.0-1.7); TOTAL BILIRUBIN 0.6 mg/dL (0.2-1.0); TOTAL PROTEIN 6.9 g/dL (6.4-8.2)
--- NOTE | 2018-08-07 08:55 | PHYS DOC ---
Past Medical History Past Medical History: Anxiety, Cancer, COPD, Pancreatitis Additional Past Medical Histor: colon spasms, uterine cancer, peripheral vascular disease Past Surgical History: Appendectomy, Cholecystectomy, Hysterectomy, Tonsillectomy Additional Past Surgical Histo: hemorrhoidectomy, left leg frx repair, vascular stents peripherally Alcohol Use: None Drug Use: None Adult General Chief Complaint Chief Complaint: ABDOMINAL PAIN HPI HPI Patient is a 72-year-old female who presents to the emergency department for evaluation. She states that for the past 3 months, she has been "sick". She states she has had generalized abdominal pain, along with diarrhea. She has had nausea but no vomiting. She has also had some mild shortness of breath. She has not had any cough or chest pain, fevers or chills. She has not had any black or bloody stools. She has had pancreatitis in the past, although she is uncertain if this pain feels similar. The pain in her upper abdomen does not radiate. She has been losing weight. There are no alleviating or exacerbating factors to her symptoms. Review of Systems Review of Systems Constitutional: Denies fever or chills. Reports recent weight loss [] Eyes: Denies change in visual acuity, redness, or eye pain [] HENT: Denies nasal congestion or sore throat [] Respiratory: Denies cough or pleuritic pain[] Cardiovascular: The patient denies any shortness of breath, chest pain, palpitations, or orthopnea [] GI: No additional information not addressed in HPI [] : Denies dysuria or hematuria [] Musculoskeletal: Denies back pain or joint pain [] Integument: Denies rash or skin lesions [] Neurologic: Denies headache, focal weakness or sensory changes [] Endocrine: Denies polyuria or polydipsia [] All other systems were reviewed and found to be within normal limits, except as documented in this note. Current Medications Current Medications Current Medications Medications (Trade) Dose Ordered Sig/Tamiko Start Time Stop Time Status Last Admin Dose Admin Info (CONTRAST GIVEN -- Rx MONITORING) 1 each PRN DAILY PRN 08/07/18 08:15 08/09/18 08:14 Iohexol (Omnipaque 240 Mg/ml) 30 ml 1X ONCE 08/07/18 08:15 08/07/18 08:16 DC 08/07/18 08:15 30 ML Iohexol (Omnipaque 300 Mg/ml) 75 ml 1X ONCE 08/07/18 08:15 08/07/18 08:16 DC 08/07/18 08:15 75 ML Morphine Sulfate (Morphine Sulfate) 4 mg PRN Q15MIN PRN 08/07/18 08:00 08/08/18 07:59 08/07/18 10:06 4 MG Ondansetron HCl (Zofran) 4 mg 1X ONCE 08/07/18 08:00 08/07/18 08:04 DC 08/07/18 08:38 4 MG Sodium Chloride 1,000 ml @ 1,000 mls/hr Q1H 08/07/18 07:58 08/07/18 08:57 DC 08/07/18 08:38 1,000 MLS/HR Allergies Allergies Allergies Coded Allergies Type Severity Reaction Last Updated Verified No Known Drug Allergies 08/07/18 No Physical Exam Physical Exam PHYSICAL EXAM: CONSTITUTIONAL: Patient is thin, frail-appearing HEAD: normocephalic, atraumatic EENT: PERRL, EOMI. Conjunctivae normal color, sclerae non-icteric; moist mucous membranes. NECK: Supple, non-tender; no meningismus. LUNGS: Globally diminished breath sounds in all lung corcoran, without any wheezes , rales, or rhonchi. HEART: Regular rate and rhythm, no murmur CHEST: No deformity; non-tender ABDOMEN: The abdomen is soft, there is tenderness to palpation in the upper abdomen diffusely, primarily in the epigastric area, without rebound or guarding. Lower abdomen is relatively soft and non-tender, no masses or bruits. EXTREM: Normal ROM; no deformity, no calf tenderness. Normal pulses palpable in all extremities. There is no pedal edema. SKIN: No rash; no diaphoresis NEURO: Alert; normal speech and cognition; CN's grossly intact; strength grossly intact without focal deficit. BACK: No CVA TTP. Current Patient Data Vital Signs Vital Signs Date Time Temp Pulse Resp B/P (MAP) Pulse Ox O2 Delivery O2 Flow Rate FiO2 08/07/18 10:06 20 100 Room Air 96.0 08/07/18 08:43 76 143/78 (99) 08/07/18 07:40 98.0 98.0 Lab Values Laboratory Tests Test 08/07/18 08:15 08/07/18 09:50 White Blood Count 8.0 x10^3/uL (4.0-11.0) Red Blood Count 4.31 x10^6/uL (3.50-5.40) Hemoglobin 14.3 g/dL (12.0-15.5) Hematocrit 41.8 % (36.0-47.0) Mean Corpuscular Volume 97 fL (79-100) Mean Corpuscular Hemoglobin 33 pg (25-35) Mean Corpuscular Hemoglobin Concent 34 g/dL (31-37) Red Cell Distribution Width 13.6 % (11.5-14.5) Platelet Count 279 x10^3/uL (140-400) Neutrophils (%) (Auto) 68 % (31-73) Lymphocytes (%) (Auto) 21 % (24-48) L Monocytes (%) (Auto) 8 % (0-9) Eosinophils (%) (Auto) 1 % (0-3) Basophils (%) (Auto) 1 % (0-3) Neutrophils # (Auto) 5.5 x10^3uL (1.8-7.7) Lymphocytes # (Auto) 1.7 x10^3/uL (1.0-4.8) Monocytes # (Auto) 0.7 x10^3/uL (0.0-1.1) Eosinophils # (Auto) 0.1 x10^3/uL (0.0-0.7) Basophils # (Auto) 0.1 x10^3/uL (0.0-0.2) Sodium Level 142 mmol/L (136-145) Potassium Level 3.8 mmol/L (3.5-5.1) Chloride Level 104 mmol/L (98-107) Carbon Dioxide Level 27 mmol/L (21-32) Anion Gap 11 (6-14) Blood Urea Nitrogen 20 mg/dL (7-20) Creatinine 1.1 mg/dL (0.6-1.0) H Estimated GFR (Cockcroft-Gault) 48.6 BUN/Creatinine Ratio 18 (6-20) Glucose Level 92 mg/dL (70-99) Lactic Acid Level 0.8 mmol/L (0.4-2.0) Calcium Level 9.4 mg/dL (8.5-10.1) Total Bilirubin 0.6 mg/dL (0.2-1.0) Aspartate Amino Transferase (AST) 17 U/L (15-37) Alanine Aminotransferase (ALT) 20 U/L (14-59) Alkaline Phosphatase 77 U/L (46-116) Troponin I Quantitative < 0.017 ng/mL (0.000-0.055) Total Protein 6.9 g/dL (6.4-8.2) Albumin 3.7 g/dL (3.4-5.0) Albumin/Globulin Ratio 1.2 (1.0-1.7) Lipase 250 U/L (73-393) Urine Collection Type Unknown Urine Color Yellow Urine Clarity Clear Urine pH 5.5 Urine Specific [place] 1.020 Urine Protein Negative mg/dL (NEG-TRACE) Urine Glucose (UA) Negative mg/dL (NEG) Urine Ketones (Stick) Negative mg/dL (NEG) Urine Blood Moderate (NEG) Urine Nitrite Negative (NEG) Urine Bilirubin Negative (NEG) Urine Urobilinogen Dipstick 0.2 mg/dL (0.2 mg/dL) Urine Leukocyte Esterase Negative (NEG) Urine RBC 11-20 /HPF (0-2) Urine WBC Occ /HPF (0-4) Urine Squamous Epithelial Cells Few /LPF Urine Bacteria Few /HPF (0-FEW) Urine Mucus Slight /LPF Laboratory Tests 08/07/18 08:15 Laboratory Tests 08/07/18 08:15 EKG EKG [Normal sinus rhythm a rate of 68 bpm, normal axis, normal intervals, occasional APCs, nonspecific ST/T changes are present but there is significant baseline wander artifact present.] Radiology/Procedures Radiology/Procedures [PROCEDURE: CHEST AP ONLY Portable chest, 08/07/2018: HISTORY: COPD, shortness of breath Comparison is made to a study from 12/30/2017. The heart size is normal. There is calcific plaquing of the aorta. There are emphysematous changes in the lungs with scattered parenchymal scars. No acute infiltrate is seen. There is no evidence of pneumothorax or pleural fluid. The bony structures are demineralized. IMPRESSION: 1. Emphysema with parenchymal scarring. 2. No acute abnormality is detected. ] PROCEDURE: CT ABD PELV W/ORAL&IV CONTRAST CT scan of the abdomen and pelvis with contrast 08/07/2018 CLINICAL HISTORY: Upper abdominal pain. TECHNIQUE: After the oral and intravenous administration of contrast, contiguous, 5 mm axial sections were obtained through the abdomen and pelvis. 60 cc of Omnipaque 300 were administered intravenously during this examination. One or more of the following individualized dose reduction techniques were utilized for this study: 1. Automated exposure control. 2. Adjustment of the mA and/or kV according to patient size. 3. Use of iterative reconstruction technique. FINDINGS: Comparison study is dated 05/19/2018. Images through the lung bases demonstrate mild cardiomegaly. Emphysematous changes are seen bilaterally. Minimal dependent subsegmental atelectasis is seen bilaterally. Air is seen throughout the intrahepatic biliary ducts, unchanged. No acute focal abnormality of the liver is noted. The spleen, pancreas, and adrenal glands are within normal limits. 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 Low-attenuation lesions are seen involving the right kidney which measure 1 to 1.3 cm in size. They likely represent cysts. They are unchanged. Extensive atherosclerotic plaque formation is seen involving the abdominal aorta and its branches. The abdominal aorta tapers normally. The gallbladder is not visualized consistent with a cholecystectomy. No free fluid or free air is seen within the abdomen. There is no evidence of bowel obstruction. Images through the pelvis demonstrate the urinary bladder distended with urine. Calcifications are seen within the pelvis consistent with phleboliths. No free fluid is seen. The osseous structures are unchanged. IMPRESSION: No acute abnormality is seen. Course & Med Decision Making Course & Med Decision Making Pertinent Labs and Imaging studies reviewed. (See chart for details) [10:30 AM: The patient's condition remains stable. She is feeling much better. She has seen Dr. Doung in the past, whom I encouraged her to follow up with for further evaluation of her symptoms. I will start her on a PPI. We discussed return precautions in detail.] Dragon Disclaimer Dragon Disclaimer This electronic medical record was generated, in whole or in part, using a voice recognition dictation system. Departure Departure Impression: Primary Impression: Abdominal pain Additional Impression: Diarrhea Disposition: 01 HOME, SELF-CARE Condition: STABLE Referrals: GEETA REES Jr, MD (PCP) LIZANDRO DUONG MD Patient Instructions: Abdominal Pain, Chronic Diarrhea, Diarrhea Scripts Omeprazole (OMEPRAZOLE) 20 Mg Capsule. 20 MG PO DAILY for 30 Days, #30 CAP Prov: DARI MULLINS MD 08/07/18 Problem Qualifiers DARI MULLINS MD Aug 07, 2018 08:55
--- NOTE | 2018-08-07 09:09 | EKG ---
[facility] [address] [place] [address] Test Date: 2018-08-07 Test Time: 08:32:13 Pat Name: CLAUDIA BAUTISTA Department: Room: Gender: F [employer] Technician: [id number] : 1945 Requested By: DARI MULLINS Order Number: [id number] Reading MD: Measurements Intervals [place] Rate: 68 P: 90 MN: 124 QRS: -39 QRSD: 64 T: 8 QT: 368 QTc: 391 Interpretive Statements SINUS RHYTHM ATRIAL PREMATURE COMPLEX(ES) T ABNORMALITY IN INFERIOR LEADS ABNORMAL ECG RI6.01 No previous ECG available for comparison
--- NOTE | 2018-08-07 09:46 | RAD ---
CT scan of the abdomen and pelvis with contrast 08/07/2018 CLINICAL HISTORY: Upper abdominal pain. TECHNIQUE: After the oral and intravenous administration of contrast, contiguous, 5 mm axial sections were obtained through the abdomen and pelvis. 60 cc of Omnipaque 300 were administered intravenously during this examination. One or more of the following individualized dose reduction techniques were utilized for this study: 1. Automated exposure control. 2. Adjustment of the mA and/or kV according to patient size. 3. Use of iterative reconstruction technique. FINDINGS: Comparison study is dated 05/19/2018. Images through the lung bases demonstrate mild cardiomegaly. Emphysematous changes are seen bilaterally. Minimal dependent subsegmental atelectasis is seen bilaterally. Air is seen throughout the intrahepatic biliary ducts, unchanged. No acute focal abnormality of the liver is noted. The spleen, pancreas, and adrenal glands are within normal limits. 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 Low-attenuation lesions are seen involving the right kidney which measure 1 to 1.3 cm in size. They likely represent cysts. They are unchanged. Extensive atherosclerotic plaque formation is seen involving the abdominal aorta and its branches. The abdominal aorta tapers normally. The gallbladder is not visualized consistent with a cholecystectomy. No free fluid or free air is seen within the abdomen. There is no evidence of bowel obstruction. Images through the pelvis demonstrate the urinary bladder distended with urine. Calcifications are seen within the pelvis consistent with phleboliths. No free fluid is seen. The osseous structures are unchanged. IMPRESSION: No acute abnormality is seen. Electronically signed by: Sony Vogt MD (08/07/2018 9:42 AM) [id number]
[2018-08-07 10:01] LABS: BILIRUBIN,URINE NEGATIVE (NEG); CLARITY,URINE CLEAR; COLOR,URINE YELLOW; NITRITE,URINE NEGATIVE (NEG); PH,URINE 5.5; PROTEIN,URINE NEGATIVE (NEG-TRACE); UROBILINOGEN,URINE 0.2 mg/dL (0.2 mg/dL)
[2018-08-07 10:12] LABS: SQUAMOUS EPITHELIAL CELL,UR FEW /LPF
[2018-08-07 10:13] LABS: BACTERIA,URINE FEW /HPF (0-FEW); WBC,URINE OCC /HPF (0-4)
[2018-08-07] MEDS ORDERED: OMEP20CA9 PO (10:34)
[2018-08-07 11:00] VITALS: BP 98/48
== END 2018-08-07 11:15 | disposition home or self-care (01) ==
LOC: ER 07:36
DX: R10.84 Generalized abdominal pain (principal); R19.7 Diarrhea, unspecified; R11.0 Nausea; R06.02 Shortness of breath; J44.9 Chronic obstructive pulmonary disease, unspecified; Z90.89 Acquired absence of other organs; Z90.49 Acquired absence of other specified parts of digestive tract; Z90.710 Acquired absence of both cervix and uterus
CPT/HCPCS: 36415; 71045; 74177; 80053; 81001; 83605; 83690; 84484; 85025; 93005; 96361; 96374; 96375; 96376; 99284; J2270; J2405; J7030; Q9966; Q9967

== ENCOUNTER 2018-10-08 16:13 | Emergency (ER) | payer MEDICARE ==
[~2018-10-08] VITALS: Ht 165.1 cm; Wt 43.1 kg
[~2018-10-08 16:13] MED LIST changes: +ALBU2.5V8 IH; +OMEP20CA9 PO; -PROAIR HFA8.5 GM IH
[2018-10-08] MEDS ORDERED: HYDROmorphone 2 MG/ML VIAL IV ONE (17:00)
--- NOTE | 2018-10-08 17:04 | PHYS DOC ---
Past Medical History Past Medical History: Anxiety, Cancer, COPD, Pancreatitis Additional Past Medical Histor: colon spasms, uterine cancer, peripheral vascular disease (DARI RUDD MD) Past Surgical History: Appendectomy, Cholecystectomy, Hysterectomy, Tonsillectomy Additional Past Surgical Histo: hemorrhoidectomy, left leg frx repair, vascular stents peripherally (DARI RUDD MD) Additional Information: 09/03 ppd Alcohol Use: None Drug Use: None (DARI RUDD MD) Adult General Chief Complaint Chief Complaint: MECHANICAL FALL HPI HPI Patient is a 72-year-old female who presents to the emergency department for evaluation. She states that she was walking down 2 [address] in front of her house, and slipped on the ice, with her lower left back landing on the corner of the step as she fell. She denies hitting her head or any headache or head injury, neck pain, upper back pain, or any extremity injury or pain, although movement of her left hip causes significant pain in her left back. She denies any numbness, weakness, vision changes, dizziness or lightheadedness, chest pain, or shortness of breath. There are no alleviating or exacerbating factors to her symptoms. The patient does have chronic pain and takes hydrocodone regularly. (DARI RUDD MD) Review of Systems Review of Systems Constitutional: Denies fever or chills [] Eyes: Denies change in visual acuity, redness, or eye pain [] HENT: Denies nasal congestion or sore throat [] Respiratory: Denies cough or shortness of breath [] Cardiovascular: The patient denies any shortness of breath, chest pain, palpitations, or orthopnea [] GI: Denies abdominal pain, nausea, vomiting, bloody stools or diarrhea [] : Denies dysuria or hematuria [] Musculoskeletal: Denies neck pain or joint pain [] Integument: Denies rash or skin lesions [] Neurologic: Denies headache, focal weakness or sensory changes [] Endocrine: Denies polyuria or polydipsia [] All other systems were reviewed and found to be within normal limits, except as documented in this note. (DARI RUDD MD) Current Medications Current Medications Current Medications Medications (Trade) Dose Ordered Sig/Tamiko Start Time Stop Time Status Last Admin Dose Admin Hydromorphone HCl (Dilaudid) 1 mg 1X ONCE 10/08/18 17:00 10/08/18 17:01 DC 10/08/18 17:13 1 MG (CRYSTAL MORGAN DO) Allergies Allergies Allergies Coded Allergies Type Severity Reaction Last Updated Verified No Known Drug Allergies 08/07/18 No (CRYSTAL MORGAN DO) Physical Exam Physical Exam PHYSICAL EXAM: CONSTITUTIONAL: Patient is very thin appearing. HEAD: normocephalic, atraumatic EENT: PERRL, EOMI. Conjunctivae normal color, sclerae non-icteric; moist mucous membranes. NECK: Supple, non-tender; no meningismus.There is full, painless range of motion of the cervical spine, without any focal bony midline tenderness to palpation. LUNGS: Lungs CTA, breathing even and unlabored. Normal air movement. HEART: Regular rate and rhythm, no murmur CHEST: No deformity; non-tender ABDOMEN: The abdomen is soft, and non-tender, no masses. There is a soft abdominal bruit and no pulsatile masses palpable. EXTREM: Normal ROM; no deformity, no calf tenderness. Normal pulses palpable in all extremities. There is no pedal edema. The hips and pelvis are nontender, although range of motion of the left hip is somewhat limited secondary to pain in the back. SKIN: No rash; no diaphoresis NEURO: Alert; normal speech and cognition; CN's grossly intact; strength grossly intact without focal deficit. BACK: No CVA TTP. There is tenderness to palpation in the lower sacral spine, more to the left in the midline, with pain in the posterior hip area as well. There is no thoracic spinal tenderness to palpation. (DARI RUDD MD) Physical Exam CONSTITUTIONAL: Cachectic and frail HEAD: normocephalic, atraumatic NECK: Supple, non-tender LUNGS: CTAB, no distress HEART: Regular rate and rhythm, no murmur EXTREM: Normal ROM; no deformity, no calf tenderness. SKIN: No rash; normal color and turgor NEURO: Alert and oriented. No focal deficit (CRYSTAL MORGAN DO) Current Patient Data Vital Signs Vital Signs Date Time Temp Pulse Resp B/P (MAP) Pulse Ox O2 Delivery O2 Flow Rate FiO2 10/08/18 20:58 75 96 10/08/18 19:14 23 10/08/18 17:43 Nasal Cannula 2.0 10/08/18 16:13 97.6 114/54 (74) 97.6 (CRYSTAL MORGAN DO) Lab Values Laboratory Tests Test 10/08/18 16:59 White Blood Count 14.9 x10^3/uL (4.0-11.0) H Red Blood Count 4.05 x10^6/uL (3.50-5.40) Hemoglobin 13.0 g/dL (12.0-15.5) Hematocrit 39.3 % (36.0-47.0) Mean Corpuscular Volume 97 fL (79-100) Mean Corpuscular Hemoglobin 32 pg (25-35) Mean Corpuscular Hemoglobin Concent 33 g/dL (31-37) Red Cell Distribution Width 13.0 % (11.5-14.5) Platelet Count 272 x10^3/uL (140-400) Neutrophils (%) (Auto) 84 % (31-73) H Lymphocytes (%) (Auto) 10 % (24-48) L Monocytes (%) (Auto) 5 % (0-9) Eosinophils (%) (Auto) 1 % (0-3) Basophils (%) (Auto) 1 % (0-3) Neutrophils # (Auto) 12.5 x10^3uL (1.8-7.7) H Lymphocytes # (Auto) 1.5 x10^3/uL (1.0-4.8) Monocytes # (Auto) 0.7 x10^3/uL (0.0-1.1) Eosinophils # (Auto) 0.1 x10^3/uL (0.0-0.7) Basophils # (Auto) 0.1 x10^3/uL (0.0-0.2) Sodium Level 139 mmol/L (136-145) Potassium Level 3.6 mmol/L (3.5-5.1) Chloride Level 105 mmol/L (98-107) Carbon Dioxide Level 26 mmol/L (21-32) Anion Gap 8 (6-14) Blood Urea Nitrogen 17 mg/dL (7-20) Creatinine 1.0 mg/dL (0.6-1.0) Estimated GFR (Cockcroft-Gault) 54.2 Glucose Level 112 mg/dL (70-99) H Calcium Level 9.1 mg/dL (8.5-10.1) Laboratory Tests 10/08/18 16:59 Laboratory Tests 10/08/18 16:59 (CRYSTAL MORGAN DO) Lab Values Laboratory Tests Test 10/08/18 16:59 White Blood Count 14.9 x10^3/uL (4.0-11.0) H Red Blood Count 4.05 x10^6/uL (3.50-5.40) Hemoglobin 13.0 g/dL (12.0-15.5) Hematocrit 39.3 % (36.0-47.0) Mean Corpuscular Volume 97 fL (79-100) Mean Corpuscular Hemoglobin 32 pg (25-35) Mean Corpuscular Hemoglobin Concent 33 g/dL (31-37) Red Cell Distribution Width 13.0 % (11.5-14.5) Platelet Count 272 x10^3/uL (140-400) Neutrophils (%) (Auto) 84 % (31-73) H Lymphocytes (%) (Auto) 10 % (24-48) L Monocytes (%) (Auto) 5 % (0-9) Eosinophils (%) (Auto) 1 % (0-3) Basophils (%) (Auto) 1 % (0-3) Neutrophils # (Auto) 12.5 x10^3uL (1.8-7.7) H Lymphocytes # (Auto) 1.5 x10^3/uL (1.0-4.8) Monocytes # (Auto) 0.7 x10^3/uL (0.0-1.1) Eosinophils # (Auto) 0.1 x10^3/uL (0.0-0.7) Basophils # (Auto) 0.1 x10^3/uL (0.0-0.2) Sodium Level 139 mmol/L (136-145) Potassium Level 3.6 mmol/L (3.5-5.1) Chloride Level 105 mmol/L (98-107) Carbon Dioxide Level 26 mmol/L (21-32) Anion Gap 8 (6-14) Blood Urea Nitrogen 17 mg/dL (7-20) Creatinine 1.0 mg/dL (0.6-1.0) Estimated GFR (Cockcroft-Gault) 54.2 Glucose Level 112 mg/dL (70-99) H Calcium Level 9.1 mg/dL (8.5-10.1) Laboratory Tests 10/08/18 16:59 Laboratory Tests 10/08/18 16:59 (DARI RUDD MD) EKG EKG [] (DARI RUDD MD) Radiology/Procedures Radiology/Procedures [] (DARI RUDD MD) Radiology/Procedures PROCEDURE: CT PELVIS WO CONTRAST CT lumbar spine without contrast, CT pelvis without contrast. HISTORY: Fall, low back pain CT lumbar spine Axial CT images were obtained to the lumbar spine. There are fractures of the left transverse processes of L1, L2, L3, and L4. There is no compression fracture of the vertebral bodies. There is mild narrowing of the spinal canal at L4-5 secondary to bulging of the disc and ligamentous and facet hypertrophy. Common duct is dilated. There is extensive atherosclerotic change of the distal abdominal aorta with possible stenosis at the aortic bifurcation. There is no aortic aneurysm. IMPRESSION: 1. Fracture transverse processes of L1-L4 on the left. 2. Bulging disks with mild spinal stenosis at L4-5. End impression CT PELVIS: CT scan of pelvis was done without contrast. An acute pelvic fracture is not identified. A hip fracture is not identified. Sacrum appears intact. IMPRESSION: 1. No acute pelvic fracture. PQRS Compliance Statement: One or more of the following individualized dose reduction techniques were utilized for this examination: 1. Automated exposure control 2. Adjustment of the mA and/or kV according to patient size 3. Use of iterative reconstruction technique Electronically signed by: Abe Medina MD (10/08/2018 6:54 PM) [facility] (CRYSTAL MORGAN DO) Course & Med Decision Making Course & Med Decision Making Pertinent Labs and Imaging studies reviewed. (See chart for details) [6:00 PM: The patient's condition remained stable. Imaging reports are pending at this time. Care will be turned over to Dr. Morgan at shift change, pending final report and disposition.] (DARI RUDD MD) Course & Med Decision Making Sign out received from Dr. Rudd for patient s/p fall. Patient seen and evaluated by myself. Pain previously addressed. CT lumbar and pelvis pending. CT findings noted acute left sided transverse process fractures for L1-L4. Patient offered admission. Reports she feels better after the pain medications and request to be discharged home. Patient stable for discharge with outpatient follow-up with PCP. Discussed findings and plan with patient and family, who acknowledge understanding and agreement. (CRYSTAL MORGAN DO) Dragon Disclaimer Dragon Disclaimer This electronic medical record was generated, in whole or in part, using a voice recognition dictation system. (DARI RUDD MD) Departure Departure Impression: Primary Impression: Fall Additional Impression: Lumbar transverse process fracture Disposition: HOME, SELF-CARE Condition: STABLE Referrals: ABE REES Jr, MD (PCP) RITO ROWE MD Patient Instructions: Fall Prevention and Home Safety, [id number], Vertebral Fracture, [id number] Additional Instructions: Your L1, L2, L3, and L4 transverse processes on the left are fractured. Use previously prescribed pain medication as needed. Scripts Orphenadrine Citrate (ORPHENADRINE CITRATE) 100 Mg Tablet.er 100 MG PO BID PRN for MUSCLE PAIN, #20 Prov: CRYSTAL MORGAN DO 10/08/18 Problem Qualifiers Primary Impression: Fall Encounter type: initial encounter Qualified Codes: W19.XXXA - Unspecified fall, initial encounter Additional Impression: Lumbar transverse process fracture Encounter type: initial encounter Fracture type: closed Qualified Codes: S32.009A - Unspecified fracture of unspecified lumbar vertebra, initial encounter for closed fracture DARI RUDD MD Oct 08, 2018 17:04 CRYSTAL MORGAN DO Oct 08, 2018 20:42
[2018-10-08 17:08] LABS: BASO # 0.1 x10^3/uL (0.0-0.2); BASO % 1 % (0-3); EOS # 0.1 x10^3/uL (0.0-0.7); EOS % 1 % (0-3); HEMATOCRIT 39.3 % (36.0-47.0); LYMPH # 1.5 x10^3/uL (1.0-4.8); LYMPH % 10 % (24-48); MEAN CORPUSCULAR HEMOGLOBIN 32 pg (25-35); MEAN CORPUSCULAR HGB CONC 33 g/dL (31-37); MEAN CORPUSCULAR VOLUME 97 fL (79-100); MONO # 0.7 x10^3/uL (0.0-1.1); MONO % 5 % (0-9); NEUT # 12.5 x10^3uL (1.8-7.7); NEUT % 84 % (31-73); PLATELET COUNT 272 x10^3/uL (140-400); RED BLOOD COUNT 4.05 x10^6/uL (3.50-5.40); WHITE BLOOD COUNT 14.9 x10^3/uL (4.0-11.0)
[2018-10-08 17:16] LABS: CALCIUM 9.1 mg/dL (8.5-10.1); GFR 54.2; POTASSIUM 3.6 mmol/L (3.5-5.1)
--- NOTE | 2018-10-08 18:58 | RAD ---
CT lumbar spine without contrast, CT pelvis without contrast. HISTORY: Fall, low back pain CT lumbar spine Axial CT images were obtained to the lumbar spine. There are fractures of the left transverse processes of L1, L2, L3, and L4. There is no compression fracture of the vertebral bodies. There is mild narrowing of the spinal canal at L4-5 secondary to bulging of the disc and ligamentous and facet hypertrophy. Common duct is dilated. There is extensive atherosclerotic change of the distal abdominal aorta with possible stenosis at the aortic bifurcation. There is no aortic aneurysm. IMPRESSION: 1. Fracture transverse processes of L1-L4 on the left. 2. Bulging disks with mild spinal stenosis at L4-5. End impression CT PELVIS: CT scan of pelvis was done without contrast. An acute pelvic fracture is not identified. A hip fracture is not identified. Sacrum appears intact. IMPRESSION: 1. No acute pelvic fracture. PQRS Compliance Statement: One or more of the following individualized dose reduction techniques were utilized for this examination: 1. Automated exposure control 2. Adjustment of the mA and/or kV according to patient size 3. Use of iterative reconstruction technique Electronically signed by: Abe Medina MD (10/08/2018 6:54 PM) [facility]
[2018-10-08] MEDS ORDERED: ORPH100T PO (20:42)
[2018-10-08 20:58] VITALS: BP 105/49
== END 2018-10-08 20:54 | disposition home or self-care (01) ==
LOC: ER 16:13
DX: S32.009A Unspecified fracture of unspecified lumbar vertebra, initial encounter for closed fracture (principal); J44.9 Chronic obstructive pulmonary disease, unspecified; Z90.89 Acquired absence of other organs; Z90.710 Acquired absence of both cervix and uterus; Z90.49 Acquired absence of other specified parts of digestive tract; F17.200 Nicotine dependence, unspecified, uncomplicated; W00.2XXA Other fall from one level to another due to ice and snow, initial encounter; Y93.89 Activity, other specified; Y92.89 Other specified places as the place of occurrence of the external cause; Y99.8 Other external cause status
CPT/HCPCS: 36415; 72131; 72192; 80048; 85025; 96374; 99284; J1170

== ENCOUNTER 2021-11-03 19:54 | Inpatient (IN) | payer MEDICARE, MEDICAID ==
[~2021-11-03] VITALS: Ht 165.1 cm; Wt 41.8 kg
[~2021-11-03 19:54] MED LIST changes: -LIPA1CAP12 PO; +LIPA1CAP31 PO; +OMEP20CA16 PO; -OMEP20CA9 PO; +ORPH100T PO; -PANT40TA5 PO; +PANT40TA77 PO
[2021-11-03] MEDS ORDERED: fentaNYL PF VIAL 100 MCG/2 ML VIAL IVP ONE (21:15)
[2021-11-03] MEDS ORDERED: ONDANSETRON PF 4 MG/2 ML VIAL. IVP ONE (21:15)
[2021-11-03] MEDS ORDERED: IV NORMAL SALINE 500ML BAG 500 ML IV ONE ×2 (21:15→22:15)
[2021-11-03 21:25] LABS: BASO % 0 % (0-3); EOS # 0.1 x10^3/uL (0.0-0.7); EOS % 1 % (0-3); HEMATOCRIT 42.3 % (36.0-47.0); HEMOGLOBIN 14.2 g/dL (12.0-15.5); LYMPH # 1.8 x10^3/uL (1.0-4.8); LYMPH % 17 % (24-48); MEAN CORPUSCULAR HEMOGLOBIN 32 pg (25-35); MEAN CORPUSCULAR HGB CONC 34 g/dL (31-37); MEAN CORPUSCULAR VOLUME 96 fL (79-100); MONO # 0.6 x10^3/uL (0.0-1.1); MONO % 6 % (0-9); NEUT # 7.8 x10^3/uL (1.8-7.7); NEUT % 76 % (31-73); PLATELET COUNT 301 x10^3/uL (140-400); RED BLOOD COUNT 4.42 x10^6/uL (3.50-5.40); RED CELL DISTRIBUTION WIDTH 13.3 % (11.5-14.5); WHITE BLOOD COUNT 10.3 x10^3/uL (4.0-11.0)
[2021-11-03] MEDS ORDERED: MORPHINE SULFATE 4 MG/ML INJ. IV ONE (21:45)
[2021-11-03 21:49] LABS: CALCIUM 9.6 mg/dL (8.5-10.1); CREATININE 1.9 mg/dL (0.6-1.0); GFR 25.6; POTASSIUM 4.6 mmol/L (3.5-5.1)
[2021-11-03 21:52] LABS: ALBUMIN 4.4 g/dL (3.4-5.0); ALBUMIN/GLOBULIN RATIO 1.3 (1.0-1.7); PHOSPHORUS 4.4 mg/dL (2.6-4.7); TOTAL BILIRUBIN 0.8 mg/dL (0.2-1.0); TOTAL PROTEIN 7.7 g/dL (6.4-8.2)
[2021-11-03 22:09] LABS: BILIRUBIN,URINE NEGATIVE (NEG); CLARITY,URINE HAZY; COLOR,URINE YELLOW; NITRITE,URINE NEGATIVE (NEG); PH,URINE 6.5 (<5.0-8.0); PROTEIN,URINE 30 mg/dL (NEG-TRACE); UROBILINOGEN,URINE 0.2 mg/dL (0.2 mg/dL)
[2021-11-03] MEDS ORDERED: FAMOTIDINE 20 MG/2 ML VIAL IVP ONE (22:15)
[2021-11-03 22:16] LABS: BACTERIA,URINE MANY /HPF (0-FEW)
[2021-11-03] MEDS ORDERED: CONTRAST GIVEN. MC PRN (22:45)
[2021-11-03] MEDS ORDERED: IOHEXOL 240 MG/ML 50ML VIAL. PO ONE (22:45)
--- NOTE | 2021-11-04 00:36 | RAD ---
EXAM: CT CHEST, ABDOMEN, AND PELVIS WITH CONTRAST INDICATION: Epigastric pain COMPARISON: CT abdomen pelvis 10/08/2018 and 12/30/2017. TECHNIQUE: Helical CT imaging performed of the chest, abdomen and pelvis after administration of 30 m L Omnipaque 350 intravenous contrast. Sagittal and coronal reformats were obtained. One or more of the following individualized dose reduction techniques were utilized for this examinat ion: 1. Automated exposure control 2. Adjustment of the mA and/or kV according to patient size 3. Use of iterative reconstruction technique. FINDINGS: There is minimal IV contrast enhancement, limiting the exam. CHEST: Thyroid gland and thoracic inlet: Thyroid gland is normal. There are calcifications in the carotid ar teries. Heart and great vessels: Heart is normal in size. There are coronary artery calcifications. Thoracic aorta is normal caliber with severe calcified atherosclerosis. Probable severe narrowing of the proxi mal left subclavian artery due to calcifications. Mediastinum and nick: No lymphadenopathy. Lungs and pleura: There is severe centrilobular emphysema. There is complete near-complete atelectasi s of the right middle lobe. There is a filling defect in the proximal aspect of the lateral segmental bronchus of the right middle lobe. No pleural effusion or pneumothorax. Chest wall and axillae: No axillary lymphadenopathy. Bones: No acute osseous abnormality in the chest. The bones are diffusely demineralized. ABDOMEN AND PELVIS: Liver: No focal liver lesion. Gallbladder/Biliary Tree: Gallbladder is not well visualized. The common bile duct is dilated measuri ng approximately 1.1 cm, unchanged. This tapers distally. Pancreas: Normal. Spleen: Normal. Adrenal Glands: Normal. Kidneys/Ureters/Bladder: Kidneys are normal in size. No nephrolithiasis or hydronephrosis. There is a 1.46 mm simple cyst in the right kidney. Ureters are nondilated. Urinary bladder is distended withou t wall thickening. Reproductive Organs: Uterus is surgically absent. No adnexal mass. Stomach, small bowel, and colon: The stomach is distended with contrast. No small bowel obstruction. The appendix is not clearly identified. The colon is unremarkable. Vasculature: There is an infrarenal abdominal aortic ectasia measuring 2.3 x 2.2 cm. Severe calcified aortoiliac atherosclerosis with dense calcifications at the abdominal branch origins and in the prox imal common iliac arteries. Lymph Nodes: No lymphadenopathy Peritoneum and retroperitoneum: No free fluid or free air. Bones: The bones are diffusely demineralized. There is no acute osseous abnormality. IMPRESSION: 1. Near complete atelectasis of the right middle lobe. Filling defect in the proximal aspect of the lateral segmental bronchus of the right middle lobe could be mucous plugging or endobronchial lesion. 2. Severe emphysema. 3. Unchanged dilation of the common bile duct. This could be related to postcholecystectomy state. S tricture or mass at the ampulla is not excluded however this is unchanged from at least 12/30/2017. 4. Moderately distended urinary bladder. 5. Severe calcified atherosclerosis in the aorta, aortic branches common iliac arteries. Probable se justa stenosis of the left subclavian artery, abdominal aortic branch origins, and common iliac arteri es. Electronically signed by: Nazanni Poe MD (11/04/2021 12:34 AM) [facility]
--- NOTE | 2021-11-04 00:42 | ED.ADGEN ---
Past Medical History Past Medical History: Anxiety, Cancer, COPD, Pancreatitis Additional Past Medical Histor: colon spasms, uterine cancer, peripheral vascular disease Past Surgical History: Appendectomy, Cholecystectomy, Hysterectomy Additional Past Surgical Histo: hemorridectomy, Smoking Status: Current Every Day Smoker Alcohol Use: None Drug Use: None General Adult EDM: Chief Complaint: ABDOMINAL PAIN HPI: HPI: Patient is a 75 year old female coming in for 1 week of epigastric pain is acutely worse today. Patient is also been having vomiting and diarrhea. Patient denies any alcohol use or new medications. Patient says she has had pancreatitis before that this feels similar. Review of Systems: Review of Systems: All other systems within normal limits except for as noted in the HPI Current Medications: Current Medications Medications (Trade) Dose Ordered Sig/Tamiko Start Time Stop Time Status Last Admin Dose Admin Famotidine (Pepcid Vial) 20 mg 1X ONCE 11/03/21 22:15 11/03/21 22:16 DC 11/03/21 22:38 20 MG Fentanyl Citrate (Fentanyl 2ml Vial) 75 mcg 1X ONCE 11/03/21 21:15 11/03/21 21:16 DC 11/03/21 21:16 75 MCG Info (CONTRAST GIVEN -- Rx MONITORING) 1 each PRN DAILY PRN 11/03/21 22:45 11/05/21 22:44 Iohexol (Omnipaque 240 Mg/ml) 30 ml 1X ONCE 11/03/21 22:45 11/03/21 22:46 DC 11/03/21 22:45 30 ML Morphine Sulfate (Morphine Sulfate) 4 mg 1X ONCE 11/03/21 21:45 11/03/21 21:46 DC 11/03/21 21:50 4 MG Multi-Ingredient Mouthwash/Gargle (Gi Cocktail) 20 ml 1X ONCE 11/04/21 00:45 11/04/21 00:46 DC 11/04/21 00:46 20 ML Ondansetron HCl (Zofran) 4 mg 1X ONCE 11/03/21 21:15 11/03/21 21:16 DC 11/03/21 21:15 4 MG Sodium Chloride 500 ml @ 500 mls/hr 1X ONCE 11/03/21 22:15 11/03/21 23:14 DC 11/03/21 22:38 500 MLS/HR Allergies: Allergies: Allergies Coded Allergies Type Severity Reaction Last Updated Verified No Known Drug Allergies 11/03/21 No Physical Exam: PE: Constitutional: Well developed, well nourished, no acute distress, non-toxic appearance. [] HENT: Normocephalic, atraumatic, bilateral external ears normal, nose normal. [] Eyes: PERRLA, conjunctiva normal, no discharge. [] Neck: No rigidity, supple, no stridor. [] Cardiovascular: Regular rate and rhythm, brisk cap refill [] Lungs & Thorax: Non labored symmetric respirations, no tachypnea or respiratory distress [] Abdomen: Soft, nondistended, epigastric tenderness. Skin: Warm, dry, no erythema, no rash. [] Back: Unremarkable Extremities: No deformities, range of motion grossly intact, no lower extremity edema [] Neurologic: Alert and oriented X 3, no focal deficits noted. [] Psychologic: Affect normal, judgement normal, mood normal. [] Current Patient Data: Labs: Laboratory Tests Test 11/03/21 21:13 11/03/21 21:37 11/03/21 22:00 White Blood Count 10.3 x10^3/uL (4.0-11.0) Red Blood Count 4.42 x10^6/uL (3.50-5.40) Hemoglobin 14.2 g/dL (12.0-15.5) Hematocrit 42.3 % (36.0-47.0) Mean Corpuscular Volume 96 fL (79-100) Mean Corpuscular Hemoglobin 32 pg (25-35) Mean Corpuscular Hemoglobin Concent 34 g/dL (31-37) Red Cell Distribution Width 13.3 % (11.5-14.5) Platelet Count 301 x10^3/uL (140-400) Neutrophils (%) (Auto) 76 % (31-73) H Lymphocytes (%) (Auto) 17 % (24-48) L Monocytes (%) (Auto) 6 % (0-9) Eosinophils (%) (Auto) 1 % (0-3) Basophils (%) (Auto) 0 % (0-3) Neutrophils # (Auto) 7.8 x10^3/uL (1.8-7.7) H Lymphocytes # (Auto) 1.8 x10^3/uL (1.0-4.8) Monocytes # (Auto) 0.6 x10^3/uL (0.0-1.1) Eosinophils # (Auto) 0.1 x10^3/uL (0.0-0.7) Basophils # (Auto) 0.0 x10^3/uL (0.0-0.2) Sodium Level 142 mmol/L (136-145) Potassium Level 4.6 mmol/L (3.5-5.1) Chloride Level 101 mmol/L (98-107) Carbon Dioxide Level 26 mmol/L (21-32) Anion Gap 15 (6-14) H Blood Urea Nitrogen 36 mg/dL (7-20) H Creatinine 1.9 mg/dL (0.6-1.0) H Estimated GFR (Cockcroft-Gault) 25.6 BUN/Creatinine Ratio 19 (6-20) Glucose Level 108 mg/dL (70-99) H Lactic Acid Level 1.1 mmol/L (0.4-2.0) Calcium Level 9.6 mg/dL (8.5-10.1) Phosphorus Level 4.4 mg/dL (2.6-4.7) Magnesium Level 2.0 mg/dL (1.8-2.4) Total Bilirubin 0.8 mg/dL (0.2-1.0) Aspartate Amino Transferase (AST) 23 U/L (15-37) Alanine Aminotransferase (ALT) 17 U/L (14-59) Alkaline Phosphatase 79 U/L (46-116) Troponin I High Sensitivity 42 ng/L (4-50) Total Protein 7.7 g/dL (6.4-8.2) Albumin 4.4 g/dL (3.4-5.0) Albumin/Globulin Ratio 1.3 (1.0-1.7) Lipase 190 U/L (73-393) D-Dimer (Margaret) 0.40 ug/mlFEU (0.00-0.50) Urine Collection Type Unknown Urine Color Yellow Urine Clarity Hazy Urine pH 6.5 (<5.0-8.0) Urine Specific [place] 1.025 (1.000-1.030) Urine Protein 30 mg/dL (NEG-TRACE) Urine Glucose (UA) Negative mg/dL (NEG) Urine Ketones (Stick) Negative mg/dL (NEG) Urine Blood Moderate (NEG) Urine Nitrite Negative (NEG) Urine Bilirubin Negative (NEG) Urine Urobilinogen Dipstick 0.2 mg/dL (0.2 mg/dL) Urine Leukocyte Esterase Small (NEG) Urine RBC 1-2 /HPF (0-2) Urine WBC 5-10 /HPF (0-4) Urine Squamous Epithelial Cells Occ /LPF Urine Bacteria Many /HPF (0-FEW) Laboratory Tests 11/03/21 21:13 Laboratory Tests 11/03/21 21:13 Vital Signs: Vital Signs Date Time Temp Pulse Resp B/P (MAP) Pulse Ox O2 Delivery O2 Flow Rate FiO2 11/03/21 23:03 84 159/72 (101) 93 Room Air 11/03/21 22:25 16 11/03/21 20:08 98.3 98.3 EKG: EKG: [] Heart Score: C/O Chest Pain: No Risk Factors: Risk Factors: DM, Current or recent (<one month) smoker, HTN, HLP, family history of CAD, obesity. Risk Scores: Score 0 - 3: 2.5% MACE over next 6 weeks - Discharge Home Score 4 - 6: 20.3% MACE over next 6 weeks - Admit for Clinical Observation Score 7 - 10: 72.7% MACE over next 6 weeks - Early Invasive Strategies Radiology/Procedures: Radiology/Procedures: [facility] [address] [place] [address] IMAGING REPORT Signed PATIENT: ELIZABETH SHETH ACCOUNT: [id number] : 09/26/1960 LOCATION: ER AGE: 61 SEX: F EXAM STATUS: REG ER ORD. PHYSICIAN: MULU LOWE APRN REASON: ABDOMINAL PAIN, omni 300 75 ml iv PROCEDURE: CT ABD PELV W/ IV CONTRST ONLY Exam: CT of abdomen and pelvis with contrast INDICATION: Abdominal pain TECHNIQUE: Sequential axial images through the abdomen and pelvis obtained following the administration of 75 mm of Isovue-370 IV contrast. Sagittal and coronal reformatted images were reconstructed from the axial data and reviewed. Exposure: One or more of the following in the visualized dose reduction techniques were utilized for this examination: 1. Automated exposure control 2. Adjustment of the MA and/or KV according to patient size 3. Use of iterative of reconstructive technique Comparisons: None FINDINGS: Heart size is normal. No pericardial effusion. Visualized lung bases are clear. No pleural effusion. Liver, spleen, pancreas and adrenals are unremarkable. Gallstones and within the gallbladder. No perinephric inflammation or hydronephrosis. No renal or ureteral calculi are identified. Bladder is stented appears thin-walled. Calcified fibroid noted in the uterus. No abnormal adnexal mass. Moderate amount stool noted in the colon. Appendix is normal. No free intra- abdominal air or fluid. No obstruction. Abdominal aorta has normal course and caliber. Abdominal vasculature is patent. No enlarged intra-abdominal lymph nodes are identified. No suspicious osseous lesions or acute fractures. IMPRESSION: No acute process identified within the abdomen or pelvis. Electronically signed by: Vidal Salcido MD (11/03/2021 10:44 PM) [facility] DICTATED and SIGNED BY: VIDAL SALCIDO MD DATE: 11/03/21 [id number] [] Course & Med Decision Making: Course & Med Decision Making Pertinent Labs and Imaging studies reviewed. (See chart for details) Patient's previous creatinine was 1.0, is 1.9 today. Will admit for further hydration recheck a creatinine likely secondary to dehydration [] Dragon Disclaimer: Tena Disclaimer: This electronic medical record was generated, in whole or in part, using a voice recognition dictation system. Departure Departure Impression: Primary Impression: Abdominal pain Additional Impression: MARTY (acute kidney injury) Disposition: ADMITTED INPATIENT Admitting Physician: HIMS Condition: STABLE Referrals: TRACIE MACK (PCP) Problem Qualifiers TATE RIVAS MD Nov 04, 2021 00:42
[2021-11-04] MEDS ORDERED: LIDO:MAALOX 1:1 20 ML SINGLE DOSE. SWSW ONE (00:45)
[2021-11-04] MEDS ORDERED: ONDANSETRON PF 4 MG/2 ML VIAL. IVP PRN (01:15)
[2021-11-04] MEDS: IV NORMAL SALINE 1000ML BAG 1,000 ML IV SCH ×4 (01:15→21:15)
[2021-11-04] MEDS ORDERED: ACETAMINOPHEN 325 MG TABLET. PO PRN (01:15)
[2021-11-04 02:02] VITALS: BP 138/52
[2021-11-04] MEDS: MORPHINE SULFATE 4 MG/ML INJ. IVP PRN ×5 (02:12→19:47)
[2021-11-04] MEDS ORDERED: HYDR-2765 PO (02:26)
[2021-11-04] MEDS ORDERED: FLUO20CA22 PO (02:26)
[2021-11-04] MEDS ORDERED: LORA0.5T96 PO (02:26)
[2021-11-04] MEDS ORDERED: FLUT1BLS3 IH (02:26)
[2021-11-04 07:00] VITALS: BP 115/57
--- NOTE | 2021-11-04 10:46 | PDOC ---
GENERAL General: History and physical [id number] VITAL SIGNS Vital Signs/I&O: Vital Signs Date Time Temp Pulse Resp B/P (MAP) Pulse Ox O2 Delivery O2 Flow Rate FiO2 11/04/21 07:00 98.7 69 20 115/57 (76) 90 Room Air 98.7 I & O 11/03/21 11/03/21 11/04/21 15:00 23:00 07:00 Intake Total 500 ml 500 ml Balance 500 ml 500 ml ALLERGIES Allergies: Allergies Coded Allergies Type Severity Reaction Last Updated Verified No Known Drug Allergies 11/03/21 No MEDS Medications: Current Medications Medications (Trade) Dose Ordered Sig/Tamiko Route PRN Reason Start Time Stop Time Status Last Admin Dose Admin Sodium Chloride 500 ml @ 500 mls/hr 1X ONCE IV 11/03/21 21:15 11/03/21 22:14 DC 11/03/21 21:15 Ondansetron HCl (Zofran) 4 mg 1X ONCE IVP 11/03/21 21:15 11/03/21 21:16 DC 11/03/21 21:15 Fentanyl Citrate (Fentanyl 2ml Vial) 75 mcg 1X ONCE IVP 11/03/21 21:15 11/03/21 21:16 DC 11/03/21 21:16 Morphine Sulfate (Morphine Sulfate) 4 mg 1X ONCE IV 11/03/21 21:45 11/03/21 21:46 DC 11/03/21 21:50 Sodium Chloride 500 ml @ 500 mls/hr 1X ONCE IV 11/03/21 22:15 11/03/21 23:14 DC 11/03/21 22:38 Famotidine (Pepcid Vial) 20 mg 1X ONCE IVP 11/03/21 22:15 11/03/21 22:16 DC 11/03/21 22:38 Iohexol (Omnipaque 240 Mg/ml) 30 ml 1X ONCE PO 11/03/21 22:45 11/03/21 22:46 DC 11/03/21 22:45 Multi-Ingredient Mouthwash/Gargle (Gi Cocktail) 20 ml 1X ONCE SWSW 11/04/21 00:45 11/04/21 00:46 DC 11/04/21 00:46 Morphine Sulfate (Morphine Sulfate) 4 mg PRN Q2HR PRN IVP PAIN 11/04/21 01:15 11/05/21 01:14 11/04/21 06:14 Sodium Chloride 1,000 ml @ 100 mls/hr Q10H IV 11/04/21 01:15 11/05/21 01:14 11/04/21 01:55 LAB Lab: Laboratory Tests Test 11/03/21 21:13 11/03/21 21:37 11/03/21 22:00 White Blood Count 10.3 x10^3/uL (4.0-11.0) Red Blood Count 4.42 x10^6/uL (3.50-5.40) Hemoglobin 14.2 g/dL (12.0-15.5) Hematocrit 42.3 % (36.0-47.0) Mean Corpuscular Volume 96 fL (79-100) Mean Corpuscular Hemoglobin 32 pg (25-35) Mean Corpuscular Hemoglobin Concent 34 g/dL (31-37) Red Cell Distribution Width 13.3 % (11.5-14.5) Platelet Count 301 x10^3/uL (140-400) Neutrophils (%) (Auto) 76 % (31-73) H Lymphocytes (%) (Auto) 17 % (24-48) L Monocytes (%) (Auto) 6 % (0-9) Eosinophils (%) (Auto) 1 % (0-3) Basophils (%) (Auto) 0 % (0-3) Neutrophils # (Auto) 7.8 x10^3/uL (1.8-7.7) H Lymphocytes # (Auto) 1.8 x10^3/uL (1.0-4.8) Monocytes # (Auto) 0.6 x10^3/uL (0.0-1.1) Eosinophils # (Auto) 0.1 x10^3/uL (0.0-0.7) Basophils # (Auto) 0.0 x10^3/uL (0.0-0.2) Sodium Level 142 mmol/L (136-145) Potassium Level 4.6 mmol/L (3.5-5.1) Chloride Level 101 mmol/L (98-107) Carbon Dioxide Level 26 mmol/L (21-32) Anion Gap 15 (6-14) H Blood Urea Nitrogen 36 mg/dL (7-20) H Creatinine 1.9 mg/dL (0.6-1.0) H Estimated GFR (Cockcroft-Gault) 25.6 BUN/Creatinine Ratio 19 (6-20) Glucose Level 108 mg/dL (70-99) H Lactic Acid Level 1.1 mmol/L (0.4-2.0) Calcium Level 9.6 mg/dL (8.5-10.1) Phosphorus Level 4.4 mg/dL (2.6-4.7) Magnesium Level 2.0 mg/dL (1.8-2.4) Total Bilirubin 0.8 mg/dL (0.2-1.0) Aspartate Amino Transferase (AST) 23 U/L (15-37) Alanine Aminotransferase (ALT) 17 U/L (14-59) Alkaline Phosphatase 79 U/L (46-116) Troponin I High Sensitivity 42 ng/L (4-50) Total Protein 7.7 g/dL (6.4-8.2) Albumin 4.4 g/dL (3.4-5.0) Albumin/Globulin Ratio 1.3 (1.0-1.7) Lipase 190 U/L (73-393) D-Dimer (Margaret) 0.40 ug/mlFEU (0.00-0.50) Urine Collection Type Unknown Urine Color Yellow Urine Clarity Hazy Urine pH 6.5 (<5.0-8.0) Urine Specific [place] 1.025 (1.000-1.030) Urine Protein 30 mg/dL (NEG-TRACE) Urine Glucose (UA) Negative mg/dL (NEG) Urine Ketones (Stick) Negative mg/dL (NEG) Urine Blood Moderate (NEG) Urine Nitrite Negative (NEG) Urine Bilirubin Negative (NEG) Urine Urobilinogen Dipstick 0.2 mg/dL (0.2 mg/dL) Urine Leukocyte Esterase Small (NEG) Urine RBC 1-2 /HPF (0-2) Urine WBC 5-10 /HPF (0-4) Urine Squamous Epithelial Cells Occ /LPF Urine Bacteria Many /HPF (0-FEW) Laboratory Tests 11/03/21 21:13 Laboratory Tests 11/03/21 21:13 Justifications for Admission Other Justification GAETANO HICKMAN MD Nov 04, 2021 10:46
[2021-11-04 10:55] VITALS: BP 104/47
[2021-11-04] MEDS: AZITHROMYCIN 500 MG in IV NORMAL SALINE 250ML 250 ML IV SCH (11:00)
--- NOTE | 2021-11-04 11:14 | HP ---
DATE OF SERVICE: 11/04/2021 ADMIT DATE: 11/04/2021 HISTORY OF PRESENT ILLNESS: This patient is a 75-year-old woman who sees Dr. Abe Ronquillo and his family practice team for continuity primary care. She has done remarkably well despite the extent of her underlying chronic disease. She tells me that her last pancreatitis flare was 5 years ago, but has had about a week of nausea, vomiting, and diarrhea, now with upper abdominal pain consistent with her pancreatitis presentations in the past. She also has severe COPD and chronically has a cough. She tells me that she lives with her son and his family and they all had COVID about a month ago. She did not become ill and so was not tested. Her son and family quarantined at another area of the house. The patient has been fully vaccinated and boosted for COVID with her Moderna vaccine series completed on 08/02/2022. She says she is feeling a little bit better after intravenous hydration, but is eager to have her medications, which have not been ordered yet. She was admitted late last evening. She denies any fever, chills, chest pain, palpitations. She has not had any recent travel. She does continue to smoke one pack per day of tobacco and is asking for nicotine patch for that. REVIEW OF SYSTEMS: All other systems were reviewed and negative. PAST MEDICAL HISTORY: 1. Severe protein-calorie malnutrition with cachexia secondary to her underlying chronic disease. 2. Severe chronic obstructive pulmonary disease. 3. Continued nicotine dependence. 4. Chronic pancreatitis with last flare being 5 years ago. She does take pancreatic replacement and that helps. MEDICATIONS: Please see the medication reconciliation form. SOCIAL HISTORY: The patient is single, lives with her son and his family. She continues to smoke one pack per day of tobacco. She does not take any illicit drugs or alcohol. The patient is a full code. FAMILY HISTORY: Reviewed in full and noncontributory to the present illness. PHYSICAL EXAMINATION: VITAL SIGNS: Vitals were reviewed since admission and are notable for that the patient has been afebrile. Blood pressure has been in the one-teens to 130s over 50s, heart rate is in the 70s and regular. She is breathing comfortably and saturating 90% on room air. Of note, she is not home oxygen dependent. GENERAL: She is a pleasant 75-year-old woman, appears her stated age, very thin, pleasant, alert and oriented x 3, no acute distress. HEENT: Unremarkable for acute abnormality. NECK: Soft and supple. No adenopathy or thyromegaly noted. CHEST: Bilateral equal air entry, though diminished throughout, wheezing in all lung corcoran. HEART: S1, S2 normal. Regular rate and rhythm. No murmurs or gallops are noted. ABDOMEN: Soft, nontender, nondistended. No masses or organomegaly noted. EXTREMITIES: Unremarkable for acute abnormality. LABORATORY AND OTHER STUDIES: Admission white count is 10.3, hemoglobin is 14.2. Admission creatinine is 1.9, prior in the record noted to be normal. Liver function test is normal. Lipase is 190. D-dimer is 0.4. Urinalysis is clear. ASSESSMENT AND PLAN: IMPRESSION: A 75-year-old woman with severe chronic obstructive pulmonary disease, cachexia, and history of pancreatitis, admitted with upper abdominal pain, nausea, vomiting, diarrhea consistent with her prior pancreatitis presentation. Found to have acute renal insufficiency likely secondary to prerenal azotemia. She is coughing, but tells me she has a chronic cough. CT chest, abdomen and pelvis done in the Emergency Department is notable for opacification of her right middle lobe with concern for endobronchial mass or infection. We will go ahead and start her on broad-spectrum intravenous antibiotics. She needs a rapid COVID antigen given that COVID has gone through her house. She has done amazingly well and attributes that largely to her vaccination and booster vaccine. We will give her nicotine replacement patch and continue to encourage her for complete tobacco cessation. Follow up creatinine in the morning after IV hydration. May need nephrology consultation if does not correct. Inpatient status is most appropriate as we anticipate a length of stay of 2-3 midnights while we work this through. We will slowly advance her diet as she tolerates. She can use SCD for DVT prophylaxis. JUAN R/DEBBIE DR: JUAN R/gabriella TID: [id number] CC: ABE RONQUILLO MD [facility]
[2021-11-04] MEDS: FLUoxetine HCL 20 MG CAPSULE PO SCH (11:47)
[2021-11-04] MEDS: ASPIRIN ENTERIC COATED 81 MG TABLET.DR. PO SCH (11:47)
[2021-11-04] MEDS: LIPASE/PROTEAS/AMYLAS 10/32/42 CAPSULE.DR. PO SCH ×2 (11:47→16:46)
[2021-11-04] MEDS: cefTRIAXone IV Push 1 GM VIAL. IVP SCH (11:48)
[2021-11-04] MEDS: NICOTINE 21MG PATCH. TD SCH (12:07)
[2021-11-04 12:29] LABS: BASO # 0.1 x10^3/uL (0.0-0.2); BASO % 2 % (0-3); EOS # 0.1 x10^3/uL (0.0-0.7); EOS % 2 % (0-3); HEMATOCRIT 38.2 % (36.0-47.0); LYMPH # 1.8 x10^3/uL (1.0-4.8); LYMPH % 23 % (24-48); MEAN CORPUSCULAR HEMOGLOBIN 32 pg (25-35); MEAN CORPUSCULAR HGB CONC 34 g/dL (31-37); MEAN CORPUSCULAR VOLUME 95 fL (79-100); MONO # 0.7 x10^3/uL (0.0-1.1); MONO % 9 % (0-9); NEUT # 5.1 x10^3/uL (1.8-7.7); NEUT % 65 % (31-73); PLATELET COUNT 245 x10^3/uL (140-400); RED BLOOD COUNT 4.03 x10^6/uL (3.50-5.40); WHITE BLOOD COUNT 7.8 x10^3/uL (4.0-11.0)
[2021-11-04] MEDS: NON FORMULARY ITEM (Fluticasone/Umeclidin/Vilanter (Trelegy Ellipta 100-62.5-25) 1 EACH) INH SCH (13:00)
[2021-11-04 13:17] LABS: ALBUMIN 3.3 g/dL (3.4-5.0); ALBUMIN/GLOBULIN RATIO 1.1 (1.0-1.7); CALCIUM 7.7 mg/dL (8.5-10.1); CREATININE 1.7 mg/dL (0.6-1.0); GFR 29.1; POTASSIUM 4.1 mmol/L (3.5-5.1); TOTAL BILIRUBIN 0.9 mg/dL (0.2-1.0); TOTAL PROTEIN 6.4 g/dL (6.4-8.2)
[2021-11-04 14:44] VITALS: BP 120/50
[2021-11-04 19:00] VITALS: BP 111/63
[2021-11-04] MEDS: ALBUTEROL SULFATE 2.5 MG/3 ML NEBU. NEB SCH (20:34)
[2021-11-04 22:56] VITALS: BP 117/34
[2021-11-05] MEDS: IV NORMAL SALINE 1000ML BAG 1,000 ML IV SCH ×3 (00:04→21:32)
[2021-11-05] MEDS: MORPHINE SULFATE 4 MG/ML INJ. IVP PRN (00:25)
[2021-11-05 03:00] VITALS: BP 151/65
[2021-11-05] MEDS: HYDROcodone/APAP 7.5/325MG 1 TAB TABLET PO PRN (03:20)
[2021-11-05 07:00] VITALS: BP 123/39
[2021-11-05] MEDS: ALBUTEROL SULFATE 2.5 MG/3 ML NEBU. NEB SCH ×2 (07:34→20:35)
[2021-11-05] MEDS ORDERED: ONDANSETRON PF 4 MG/2 ML VIAL. IVP PRN (08:00)
[2021-11-05] MEDS: ASPIRIN ENTERIC COATED 81 MG TABLET.DR. PO SCH (08:07)
[2021-11-05] MEDS: LIPASE/PROTEAS/AMYLAS 10/32/42 CAPSULE.DR. PO SCH ×3 (08:07→17:30)
[2021-11-05] MEDS: NICOTINE 21MG PATCH. TD SCH (08:08)
[2021-11-05] MEDS: FLUoxetine HCL 20 MG CAPSULE PO SCH (08:08)
[2021-11-05] MEDS: MORPHINE SULFATE 2 MG/ML INJ. IVP PRN ×4 (08:12→20:32)
[2021-11-05 09:17] LABS: BASO # 0.1 x10^3/uL (0.0-0.2); BASO % 1 % (0-3); EOS # 0.1 x10^3/uL (0.0-0.7); EOS % 1 % (0-3); HEMATOCRIT 39.3 % (36.0-47.0); HEMOGLOBIN 12.8 g/dL (12.0-15.5); LYMPH # 1.5 x10^3/uL (1.0-4.8); LYMPH % 18 % (24-48); MEAN CORPUSCULAR HEMOGLOBIN 32 pg (25-35); MEAN CORPUSCULAR HGB CONC 33 g/dL (31-37); MEAN CORPUSCULAR VOLUME 97 fL (79-100); MONO # 0.5 x10^3/uL (0.0-1.1); MONO % 6 % (0-9); NEUT # 6.1 x10^3/uL (1.8-7.7); NEUT % 74 % (31-73); PLATELET COUNT 229 x10^3/uL (140-400); RED BLOOD COUNT 4.05 x10^6/uL (3.50-5.40); RED CELL DISTRIBUTION WIDTH 13.5 % (11.5-14.5); WHITE BLOOD COUNT 8.3 x10^3/uL (4.0-11.0)
[2021-11-05 09:39] LABS: ALBUMIN 3.3 g/dL (3.4-5.0); ALBUMIN/GLOBULIN RATIO 1.1 (1.0-1.7); CALCIUM 8.2 mg/dL (8.5-10.1); CREATININE 1.6 mg/dL (0.6-1.0); GFR 31.3; POTASSIUM 4.1 mmol/L (3.5-5.1); TOTAL BILIRUBIN 0.6 mg/dL (0.2-1.0); TOTAL PROTEIN 6.2 g/dL (6.4-8.2)
[2021-11-05 11:00] VITALS: BP 122/41
[2021-11-05] MEDS: cefTRIAXone IV Push 1 GM VIAL. IVP SCH (11:21)
[2021-11-05] MEDS: AZITHROMYCIN 500 MG in IV NORMAL SALINE 250ML 250 ML IV SCH (11:22)
[2021-11-05] MEDS: NON FORMULARY ITEM (Fluticasone/Umeclidin/Vilanter (Trelegy Ellipta 100-62.5-25) 1 EACH) INH SCH (11:30)
[2021-11-05] MEDS ORDERED: guaiFENesin/CODEINE 100mg/10mg 5 ML LIQUID PO PRN (13:30)
--- NOTE | 2021-11-05 13:35 | PDOC ---
GENERAL General: Patient examined chart reviewed no events overnight noted. Patient's pain has increased tells me that her pancreatitis typically is quite painful and also all of the coughing is giving her more trouble in her left posterior chest. She is breathing comfortably and still requiring less oxygen in fact feels that she only needs it when she is up and moving about. She understands that she will need close outpatient follow-up on her right middle lobe opacification which we are treating as pneumonia and hopefully on reimaging once recovered in the next 8 to 12 weeks that area will clear up. Rapid Covid is negative and PCR is pending. We will augment her cough suppressants and advance her diet per her request. The hydrocodone is not helping her pain, we will need to continue to use the morphine intravenous as needed for now. Continue current management otherwise. Time spent today is 30 minutes with greater than 50% in counseling and coordination of care most of which in discussion with patient regarding care plan and progress. Problems: (1) RML pneumonia (2) Pancreatitis (3) Nausea & vomiting (4) COPD exacerbation (5) Pulmonary lesion of right side of chest VITAL SIGNS Vital Signs/I&O: Vital Signs Date Time Temp Pulse Resp B/P (MAP) Pulse Ox O2 Delivery O2 Flow Rate FiO2 11/05/21 12:37 18 95 Room Air 11/05/21 11:00 98.2 98.2 11/05/21 11:00 78 122/41 (68) 2.0 I & O 11/04/21 11/04/21 11/05/21 15:00 23:00 07:00 Intake Total 100 ml 360 ml 240 ml Balance 100 ml 360 ml 240 ml Patient is sitting up in bed resting coughing throughout our visit alert and oriented x3 otherwise in no acute distress HEENT exam is unremarkable for acute abnormality Chest bilateral equal air entry though diminished throughout no crackles or wheezes are noted Heart S1-S2 normal regular rate and rhythm no murmurs or gallops are noted Abdomen scaphoid nondistended no masses organomegaly noted Extremity exam is unremarkable for acute abnormality ALLERGIES Allergies: Allergies Coded Allergies Type Severity Reaction Last Updated Verified No Known Drug Allergies 11/03/21 No MEDS Medications: Current Medications Medications (Trade) Dose Ordered Sig/Tamiko Start Time Stop Time Status Last Admin Dose Admin Acetaminophen (Tylenol) 650 mg PRN Q4HRS PRN 11/04/21 01:15 11/05/21 01:14 DC Acetaminophen/ Hydrocodone Bitart (Lortab 7.5/325) 1 tab PRN Q6HRS PRN 11/04/21 10:30 11/05/21 03:20 Albuterol Sulfate (Ventolin Neb Soln) 2.5 mg BID 11/04/21 21:00 11/05/21 07:34 Amylase/Lipase/ Protease (Zenpep 10,000) 2 cap TIDBFRMEAL 11/04/21 11:30 11/05/21 12:36 Aspirin (Ecotrin) 81 mg DAILY 11/04/21 11:00 11/05/21 08:07 Azithromycin 500 mg/Sodium Chloride 250 ml @ 250 mls/hr Q24H 11/04/21 11:00 11/05/21 11:22 Ceftriaxone Sodium (Rocephin) 1 gm Q24H 11/04/21 11:00 11/05/21 11:21 Famotidine (Pepcid Vial) 20 mg 1X ONCE 11/03/21 22:15 11/03/21 22:16 DC 11/03/21 22:38 Fentanyl Citrate (Fentanyl 2ml Vial) 75 mcg 1X ONCE 11/03/21 21:15 11/03/21 21:16 DC 11/03/21 21:16 Fluoxetine HCl (PROzac) 20 mg DAILY 11/04/21 11:00 11/05/21 08:08 Guaifenesin/ Codeine Phosphate (Robitussin Ac) 5 ml PRN Q6HRS PRN 11/05/21 13:30 UNV Info (CONTRAST GIVEN -- Rx MONITORING) 1 each PRN DAILY PRN 11/03/21 22:45 11/05/21 22:44 Iohexol (Omnipaque 240 Mg/ml) 30 ml 1X ONCE 11/03/21 22:45 11/03/21 22:46 DC 11/03/21 22:45 Lorazepam (Ativan) 0.5 mg PRN BID PRN 11/04/21 10:30 Morphine Sulfate (Morphine Sulfate) 2 mg PRN Q2HR PRN 11/05/21 08:00 11/05/21 12:37 Multi-Ingredient Mouthwash/Gargle (Gi Cocktail) 20 ml 1X ONCE 11/04/21 00:45 11/04/21 00:46 DC 11/04/21 00:46 Nicotine (Nicoderm Cq 21mg) 1 patch DAILY 11/04/21 10:30 11/05/21 08:08 Non-Formulary Medication (Fluticasone/ Umeclidin/ Vilanter (Trelegy Ellipta 100-62.5-25)) 1 each DAILY 11/04/21 13:00 11/05/21 11:30 Ondansetron HCl (Zofran) 4 mg PRN Q4HRS PRN 11/05/21 08:00 11/05/21 12:51 Sodium Chloride 1,000 ml @ 100 mls/hr Q10H 11/04/21 10:45 11/05/21 08:06 Current Medications Medications (Trade) Dose Ordered Sig/Tamiko Route PRN Reason Start Time Stop Time Status Last Admin Dose Admin Albuterol Sulfate (Ventolin Neb Soln) 2.5 mg BID NEB 11/04/21 21:00 11/05/21 07:34 Ondansetron HCl (Zofran) 4 mg PRN Q4HRS PRN IVP NAUSEA/VOMITING 11/05/21 08:00 11/05/21 12:51 Morphine Sulfate (Morphine Sulfate) 2 mg PRN Q2HR PRN IVP PAIN 11/05/21 08:00 11/05/21 12:37 LAB Lab: Laboratory Tests Test 11/04/21 16:55 11/05/21 08:55 SARS-CoV-2 Antigen (Rapid) Negative (NEGATIVE) White Blood Count 8.3 x10^3/uL (4.0-11.0) Red Blood Count 4.05 x10^6/uL (3.50-5.40) Hemoglobin 12.8 g/dL (12.0-15.5) Hematocrit 39.3 % (36.0-47.0) Mean Corpuscular Volume 97 fL (79-100) Mean Corpuscular Hemoglobin 32 pg (25-35) Mean Corpuscular Hemoglobin Concent 33 g/dL (31-37) Red Cell Distribution Width 13.5 % (11.5-14.5) Platelet Count 229 x10^3/uL (140-400) Neutrophils (%) (Auto) 74 % (31-73) H Lymphocytes (%) (Auto) 18 % (24-48) L Monocytes (%) (Auto) 6 % (0-9) Eosinophils (%) (Auto) 1 % (0-3) Basophils (%) (Auto) 1 % (0-3) Neutrophils # (Auto) 6.1 x10^3/uL (1.8-7.7) Lymphocytes # (Auto) 1.5 x10^3/uL (1.0-4.8) Monocytes # (Auto) 0.5 x10^3/uL (0.0-1.1) Eosinophils # (Auto) 0.1 x10^3/uL (0.0-0.7) Basophils # (Auto) 0.1 x10^3/uL (0.0-0.2) Sodium Level 142 mmol/L (136-145) Potassium Level 4.1 mmol/L (3.5-5.1) Chloride Level 107 mmol/L (98-107) Carbon Dioxide Level 22 mmol/L (21-32) Anion Gap 13 (6-14) Blood Urea Nitrogen 23 mg/dL (7-20) H Creatinine 1.6 mg/dL (0.6-1.0) H Estimated GFR (Cockcroft-Gault) 31.3 BUN/Creatinine Ratio 14 (6-20) Glucose Level 74 mg/dL (70-99) Calcium Level 8.2 mg/dL (8.5-10.1) L Total Bilirubin 0.6 mg/dL (0.2-1.0) Aspartate Amino Transferase (AST) 23 U/L (15-37) Alanine Aminotransferase (ALT) 16 U/L (14-59) Alkaline Phosphatase 64 U/L (46-116) Total Protein 6.2 g/dL (6.4-8.2) L Albumin 3.3 g/dL (3.4-5.0) L Albumin/Globulin Ratio 1.1 (1.0-1.7) Laboratory Tests 11/05/21 08:55 Laboratory Tests 11/05/21 08:55 ASSESSMENT & PLAN A&P Plan as noted above This note was created using [employer] and may have omissions and/or errors due to the nature of real-time voice learning program manager. Justifications for Admission Other Justification GAETANO HICKMAN MD Nov 05, 2021 13:35
[2021-11-05] MEDS: BENZONATATE 100 MG CAPSULE. PO SCH ×2 (14:00→21:32)
[2021-11-05 15:00] VITALS: BP 115/38
[2021-11-05 19:00] VITALS: BP 93/61
[2021-11-05] MEDS: LACTOBACILLUS RHAMNOSUS GG 1 CAPSULE. PO SCH (21:32)
[2021-11-05 23:00] VITALS: BP 114/34
[2021-11-06] MEDS: MORPHINE SULFATE 2 MG/ML INJ. IVP PRN ×4 (01:02→19:17)
[2021-11-06 03:00] VITALS: BP 133/38
[2021-11-06 07:00] VITALS: BP 122/45
[2021-11-06] MEDS: IV NORMAL SALINE 1000ML BAG 1,000 ML IV SCH ×2 (07:05→17:07)
[2021-11-06] MEDS: ALBUTEROL SULFATE 2.5 MG/3 ML NEBU. NEB SCH ×2 (07:39→19:53)
[2021-11-06] MEDS: LACTOBACILLUS RHAMNOSUS GG 1 CAPSULE. PO SCH ×2 (09:16→21:36)
[2021-11-06] MEDS: BENZONATATE 100 MG CAPSULE. PO SCH ×3 (09:16→21:36)
[2021-11-06] MEDS: LIPASE/PROTEAS/AMYLAS 10/32/42 CAPSULE.DR. PO SCH ×3 (09:16→17:07)
[2021-11-06] MEDS: FLUoxetine HCL 20 MG CAPSULE PO SCH (09:16)
[2021-11-06] MEDS: ASPIRIN ENTERIC COATED 81 MG TABLET.DR. PO SCH (09:16)
[2021-11-06] MEDS: NICOTINE 21MG PATCH. TD SCH (09:16)
[2021-11-06 10:23] LABS: BASO # 0.1 x10^3/uL (0.0-0.2); BASO % 1 % (0-3); EOS # 0.1 x10^3/uL (0.0-0.7); EOS % 2 % (0-3); HEMOGLOBIN 12.4 g/dL (12.0-15.5); LYMPH # 1.5 x10^3/uL (1.0-4.8); LYMPH % 16 % (24-48); MEAN CORPUSCULAR HEMOGLOBIN 32 pg (25-35); MEAN CORPUSCULAR HGB CONC 33 g/dL (31-37); MEAN CORPUSCULAR VOLUME 98 fL (79-100); MONO # 0.8 x10^3/uL (0.0-1.1); MONO % 8 % (0-9); NEUT # 7.2 x10^3/uL (1.8-7.7); NEUT % 74 % (31-73); PLATELET COUNT 210 x10^3/uL (140-400); RED BLOOD COUNT 3.89 x10^6/uL (3.50-5.40); RED CELL DISTRIBUTION WIDTH 13.1 % (11.5-14.5); WHITE BLOOD COUNT 9.7 x10^3/uL (4.0-11.0)
[2021-11-06 10:24] LABS: ALBUMIN 3.2 g/dL (3.4-5.0); ALBUMIN/GLOBULIN RATIO 1.3 (1.0-1.7); CALCIUM 8.1 mg/dL (8.5-10.1); CREATININE 1.3 mg/dL (0.6-1.0); GFR 39.7; POTASSIUM 4.1 mmol/L (3.5-5.1); TOTAL BILIRUBIN 0.6 mg/dL (0.2-1.0); TOTAL PROTEIN 5.7 g/dL (6.4-8.2)
[2021-11-06 11:00] VITALS: BP 125/59
[2021-11-06] MEDS: NON FORMULARY ITEM (Fluticasone/Umeclidin/Vilanter (Trelegy Ellipta 100-62.5-25) 1 EACH) INH SCH (11:12)
[2021-11-06] MEDS: cefTRIAXone IV Push 1 GM VIAL. IVP SCH (11:12)
[2021-11-06] MEDS: AZITHROMYCIN 500 MG in IV NORMAL SALINE 250ML 250 ML IV SCH (11:21)
--- NOTE | 2021-11-06 12:26 | RAD ---
Single view of the chest. 11/06/2021 11:45 AM Indication: Shortness of breath, prior atelectasis Comparison: CT chest November 03, 2021 Findings: Severe emphysematous changes and interstitial thickening seen, similar comparison studies. Mild reticular opacities in lung bases could represent atelectasis, or mild infiltrate. No pneumothor ax or definitive effusion is seen. Heart size is normal. Bony thorax is grossly intact. Impression: 1. Reticular opacities in lung bases possibly atelectasis or early infiltrate. Radiographic follow-up recommended 2. Severe emphysematous changes. Electronically signed by: Clifton Ospina MD (11/06/2021 12:24 PM) [id number]
--- NOTE | 2021-11-06 12:40 | NUR ---
SW following. Discussed with RN, pt from home with son, 2L (does not use oxygen at home), bland diet, COVID-19 negative. RN advised pt gets around fine and no SW needs at this time. SW will continue to follow.
[2021-11-06 15:00] VITALS: BP 124/83
[2021-11-06] MEDS: HYDROcodone/APAP 7.5/325MG 1 TAB TABLET PO PRN ×2 (16:04→23:58)
--- NOTE | 2021-11-06 16:46 | NUR ---
Pt transferred to room #442 by w/c and O2.
--- NOTE | 2021-11-06 18:35 | PDOC ---
[employer] PROGRESS NOTE Date of Service DOS: DATE: 11/06/21 TIME: 18:34 Chief Complaint Chief Complaint A 75-year-old woman with severe chronic obstructive pulmonary disease, cachexia, and history of pancreatitis, admitted with upper abdominal pain, nausea, vomiting, diarrhea consistent with her prior pancreatitis presentation. Found to have acute renal insufficiency likely secondary to prerenal azotemia. She is coughing, but tells me she has a chronic cough. CT chest, abdomen and pelvis done in the Emergency Department is notable for opacification of her right middle lobe with concern for endobronchial mass or infection. We will go ahead and start her on broad-spectrum intravenous antibiotics. She needs a rapid COVID antigen given that COVID has gone through her house. She has done amazingly well and attributes that largely to her vaccination and booster vaccine. We will give her nicotine replacement patch and continue to encourage her for complete tobacco cessation. Follow up creatinine in the morning after IV hydration. May need nephrology consultation if does not correct. Inpatient status is most appropriate as we anticipate a length of stay of 2-3 midnights while we work this through. We will slowly advance her diet as she tolerates. She can use SCD for DVT prophylaxis. History of Present Illness History of Present Illness 11/06 Patient evaluated examined at bedside. Advance diet as tolerated. Was asking for solid food today. Improved diarrhea. Kidneys improving as well. If continued improvement plan for discharge in the morning. Jameson with bedside RN. Vitals/I&O Vitals/I&O: Vital Signs Date Time Temp Pulse Resp B/P (MAP) Pulse Ox O2 Delivery O2 Flow Rate FiO2 11/06/21 16:30 Nasal Cannula 2.0 11/06/21 15:00 98.6 73 18 124/83 (97) 92 98.6 I & O 11/05/21 11/05/21 11/06/21 15:00 23:00 07:00 Intake Total 1360 ml 240 ml 120 ml Output Total 600 ml Balance 760 ml 240 ml 120 ml Physical Exam General: Alert, Oriented X3, Cooperative Heart: Regular rate, Normal S1, Normal S2 Lungs: Clear Abdomen: Normal bowel sounds, Soft, No tenderness Extremities: No edema, Normal pulses Skin: No significant lesion Labs Labs: Laboratory Tests Test 11/06/21 08:58 White Blood Count 9.7 x10^3/uL (4.0-11.0) Red Blood Count 3.89 x10^6/uL (3.50-5.40) Hemoglobin 12.4 g/dL (12.0-15.5) Hematocrit 38.0 % (36.0-47.0) Mean Corpuscular Volume 98 fL (79-100) Mean Corpuscular Hemoglobin 32 pg (25-35) Mean Corpuscular Hemoglobin Concent 33 g/dL (31-37) Red Cell Distribution Width 13.1 % (11.5-14.5) Platelet Count 210 x10^3/uL (140-400) Neutrophils (%) (Auto) 74 % (31-73) Lymphocytes (%) (Auto) 16 % (24-48) Monocytes (%) (Auto) 8 % (0-9) Eosinophils (%) (Auto) 2 % (0-3) Basophils (%) (Auto) 1 % (0-3) Neutrophils # (Auto) 7.2 x10^3/uL (1.8-7.7) Lymphocytes # (Auto) 1.5 x10^3/uL (1.0-4.8) Monocytes # (Auto) 0.8 x10^3/uL (0.0-1.1) Eosinophils # (Auto) 0.1 x10^3/uL (0.0-0.7) Basophils # (Auto) 0.1 x10^3/uL (0.0-0.2) Sodium Level 141 mmol/L (136-145) Potassium Level 4.1 mmol/L (3.5-5.1) Chloride Level 106 mmol/L (98-107) Carbon Dioxide Level 26 mmol/L (21-32) Anion Gap 9 (6-14) Blood Urea Nitrogen 15 mg/dL (7-20) Creatinine 1.3 mg/dL (0.6-1.0) Estimated GFR (Cockcroft-Gault) 39.7 BUN/Creatinine Ratio 12 (6-20) Glucose Level 77 mg/dL (70-99) Calcium Level 8.1 mg/dL (8.5-10.1) Total Bilirubin 0.6 mg/dL (0.2-1.0) Aspartate Amino Transf (AST/SGOT) 24 U/L (15-37) Alanine Aminotransferase (ALT/SGPT) 18 U/L (14-59) Alkaline Phosphatase 62 U/L (46-116) Total Protein 5.7 g/dL (6.4-8.2) Albumin 3.2 g/dL (3.4-5.0) Albumin/Globulin Ratio 1.3 (1.0-1.7) Assessment and Plan Assessmemt and Plan Problems Medical Problems: (1) Abdominal pain Status: Acute (2) MARTY (acute kidney injury) Status: Acute Comment Review of Relevant I have reviewed the following items vic (where applicable) has been applied. Medications: Current Medications Medications (Trade) Dose Ordered Sig/Tamiko Route PRN Reason Start Time Stop Time Status Last Admin Dose Admin Lactobacillus Rhamnosus (Culturelle) 1 cap BID PO 11/05/21 21:00 11/06/21 09:16 Justifications for Admission Other Justification JAMIL RAY MD Nov 06, 2021 18:35
[2021-11-06 19:00] VITALS: BP 100/78
[2021-11-06 23:00] VITALS: BP 116/65
[2021-11-07] MEDS: MORPHINE SULFATE 2 MG/ML INJ. IVP PRN ×7 (00:08→22:26)
[2021-11-07] MEDS: IV NORMAL SALINE 1000ML BAG 1,000 ML IV SCH ×2 (02:46→12:07)
[2021-11-07 03:00] VITALS: BP 124/68
[2021-11-07 07:30] VITALS: BP 110/41
[2021-11-07] MEDS: ALBUTEROL SULFATE 2.5 MG/3 ML NEBU. NEB SCH ×2 (07:46→21:09)
[2021-11-07] MEDS: LACTOBACILLUS RHAMNOSUS GG 1 CAPSULE. PO SCH ×2 (08:45→22:27)
[2021-11-07] MEDS: ASPIRIN ENTERIC COATED 81 MG TABLET.DR. PO SCH (08:45)
[2021-11-07] MEDS: FLUoxetine HCL 20 MG CAPSULE PO SCH (08:45)
[2021-11-07] MEDS: LIPASE/PROTEAS/AMYLAS 10/32/42 CAPSULE.DR. PO SCH ×3 (08:45→15:52)
[2021-11-07] MEDS: BENZONATATE 100 MG CAPSULE. PO SCH ×3 (08:46→22:26)
[2021-11-07] MEDS: NICOTINE 21MG PATCH. TD SCH (08:47)
[2021-11-07] MEDS: HYDROcodone/APAP 7.5/325MG 1 TAB TABLET PO PRN (10:07)
[2021-11-07] MEDS: NON FORMULARY ITEM (Fluticasone/Umeclidin/Vilanter (Trelegy Ellipta 100-62.5-25) 1 EACH) INH SCH (10:09)
[2021-11-07] MEDS: AZITHROMYCIN 500 MG in IV NORMAL SALINE 250ML 250 ML IV SCH (10:09)
[2021-11-07 11:14] VITALS: BP 148/76
[2021-11-07] MEDS: cefTRIAXone IV Push 1 GM VIAL. IVP SCH (12:03)
[2021-11-07] MEDS ORDERED: FAMOTIDINE 20 MG/2 ML VIAL IVP ONE (14:15)
--- NOTE | 2021-11-07 14:48 | PDOC2 ---
GI CONSULT Date of Service: DATE: 11/07/21 TIME: 14:47 Reason For Consult: abd pain, burning, nausea HPI: HPI: 75 y/o female who has seen Dr. Duong. We have seen here in the past for abd pain and weight loss. H/o mesenteric ischemia s/p celiac stent in 10/2015 and pancreatitis s/p cholecystectomy (w/ MRCP in 10/2015 showing no definite obstructive process or choledocholithiasis, CA19-9 elevated at 76 in 2018, past CT w/ dilated CBD and upper limits of normal PD). Last CTA in 2016: extensive calcific plaquing of the aorta and its branches, small focal aneurysmal bulge along the left side of the infrarenal abdominal aorta, patent celiac artery stent with mild luminal narrowing just distal to the distal end of the stent, moderate calcific plaquing and luminal narrowing of the proximal SMA, and ca lcific plaquing and moderate luminal narrowing at the right renal artery origin. Had surgery eval at that time with recommendation for vascular eval (which I don't think was done - some mention of patient not desiring "surgery"). Tells me today she has been ill for months w/ mid abdominal "burning" - constant and worsening, associated w/ intermittent n/v (also worsening) and diarrhea (currently not an issue). Has lost weight - says weighs 89 pounds. Not eating much - some early satiety - abdominal pain unchanged with eating. Eventually symptoms became severe enough to come to ER - was admitted 11/03/21 w/ MARTY. CT C/A/P noted near complete atelectasis of RML, severe emphysema, stable CBD dilation (1.1cm), severe calcified atherosclerosis in aorta, aortic branches, and common iliac arteries. Last vomited (says was bilious) on Saturday. Tolerated liquids, but has more nausea today after trying some regular food. Feels more short of breath than normal and abdominal pain is worse today. Still takes Creon 36,000u 2 pills TIC AC. No longer takes cholestyramine. Takes hydrocodone PRN for pain - "it doesn't touch this." Getting ASA here. Last EGD and colonoscopy performed in 08/2013. EGD was normal and random duodenal biopsy showed focal duodenitis. Colonoscopy showed internal hemorrhoids and random biopsies were negative for pathology. S/p cholecystectomy. PMH: PMH: HTN, HLD, COPD, uterine cancer, osteopenia, mesenteric ischemia appendectomy, cholecystectomy, tonsillectomy, hysterectomy, hemorrhoidectomy, celiac artery stent, left leg fracture repair FH: Family History: No pertinent hx Social History: Smoke: <1 pack per day ALCOHOL: none Drugs: None ROS: GEN: Denies fevers, chills, sweats HEENT: Denies blurred vision, sore throat CV: Denies chest pain RESP: +SOA GI: Per HPI : Denies hematuria, dysuria ENDO: +weight loss NEURO: Denies confusion, dizziness MSK: Denies weakness, joint pain/swelling SKIN: Denies jaundice, pruritus Vitals: Vitals: Vital Signs Date Time Temp Pulse Resp B/P (MAP) Pulse Ox O2 Delivery O2 Flow Rate FiO2 11/07/21 12:06 18 Nasal Cannula 2.0 11/07/21 11:14 97.8 86 148/76 (100) 93 97.8 Labs: Labs: see EMR pending results today previously normal WBC, Hgb, plt, lactic, D-dimer, LFTs, lipase, troponin COVID neg Cr was 1.9, improved to 1.3 CULTURE URINE Final GREATER THAN 100,000 CFU/ML GRAM NEGATIVE RODS on 11/05/21 at 0923. FINAL ID= KLEBSIELLA PNEUMONIAE Allergies: Coded Allergies: No Known Drug Allergies (Unverified , 11/03/21) Imaging: Imaging: C/A/P CT 11/03/21 CHEST: Thyroid gland and thoracic inlet: Thyroid gland is normal. There are calcifications in the carotid arteries. Heart and great vessels: Heart is normal in size. There are coronary artery calcifications. Thoracic aorta is normal caliber with severe calcified atherosclerosis. Probable severe narrowing of the proximal left subclavian artery due to calcifications. Mediastinum and nick: No lymphadenopathy. Lungs and pleura: There is severe centrilobular emphysema. There is complete near-complete atelectasis of the right middle lobe. There is a filling defect in the proximal aspect of the lateral segmental bronchus of the right middle lobe. No pleural effusion or pneumothorax. Chest wall and axillae: No axillary lymphadenopathy. Bones: No acute osseous abnormality in the chest. The bones are diffusely demineralized. ABDOMEN AND PELVIS: Liver: No focal liver lesion. Gallbladder/Biliary Tree: Gallbladder is not well visualized. The common bile duct is dilated measuring approximately 1.1 cm, unchanged. This tapers distally. Pancreas: Normal. Spleen: Normal. Adrenal Glands: Normal. Kidneys/Ureters/Bladder: Kidneys are normal in size. No nephrolithiasis or hydronephrosis. There is a 1.46 mm simple cyst in the right kidney. Ureters are nondilated. Urinary bladder is distended without wall thickening. Reproductive Organs: Uterus is surgically absent. No adnexal mass. Stomach, small bowel, and colon: The stomach is distended with contrast. No small bowel obstruction. The appendix is not clearly identified. The colon is unremarkable. Vasculature: There is an infrarenal abdominal aortic ectasia measuring 2.3 x 2.2 cm. Severe calcified aortoiliac atherosclerosis with dense calcifications at the abdominal branch origins and in the proximal common iliac arteries. Lymph Nodes: No lymphadenopathy Peritoneum and retroperitoneum: No free fluid or free air. Bones: The bones are diffusely demineralized. There is no acute osseous abnor mality. IMPRESSION: 1. Near complete atelectasis of the right middle lobe. Filling defect in the proximal aspect of the lateral segmental bronchus of the right middle lobe could be mucous plugging or endobronchial lesion. 2. Severe emphysema. 3. Unchanged dilation of the common bile duct. This could be related to postcholecystectomy state. Stricture or mass at the ampulla is not excluded however this is unchanged from at least 12/30/2017. 4. Moderately distended urinary bladder. 5. Severe calcified atherosclerosis in the aorta, aortic branches common iliac arteries. Probable severe stenosis of the left subclavian artery, abdominal aortic branch origins, and common iliac arteries. CXR 11/06/21 Impression: 1. Reticular opacities in lung bases possibly atelectasis or early infiltrate. Radiographic follow-up recommended 2. Severe emphysematous changes. KUB 11/07/21 pending PE: GEN: quite thin HEENT: Atraumatic, PERRL LUNGS: breathless at times, poor air movement, NC 2L HEART: RRR ABD: quiet BS, soft, periumbilical and LLQ discomfort, less so epigastrium EXTREMITY: No edema SKIN: No rashes, no jaundice NEURO/PSYCH: A & O 3, anxious A/P: A/P: Abdominal pain, n/v, intermittent diarrhea, weight loss H/o mesenteric ischemia s/p celiac stent in 2016 Shortness of breath, MARTY (better), UTI CRC screen - last in 2012 Hemorrhoids H/o pancreatitis S/p cholecystectomy Chronic/stable CBD dilation +tobacco COVID negative -- Difficult situation - chronic/recurrent/worsening issue - h/o mesenteric ischemia w/ past imaging/workup as above. Not sure anything new to offer from GI standpoint. Await recheck of labs, x-ray. Will review w/ Dr. Duong. YANY ROSS Nov 07, 2021 14:48
--- NOTE | 2021-11-07 14:57 | PDOC ---
[facility] PROGRESS NOTE Date of Service DOS: DATE: 11/07/21 TIME: 14:56 Chief Complaint Chief Complaint A 75-year-old woman with severe chronic obstructive pulmonary disease, cachexia, and history of pancreatitis, admitted with upper abdominal pain, nausea, vomiting, diarrhea consistent with her prior pancreatitis presentation. Found to have acute renal insufficiency likely secondary to prerenal azotemia. She is coughing, but tells me she has a chronic cough. CT chest, abdomen and pelvis done in the Emergency Department is notable for opacification of her right middle lobe with concern for endobronchial mass or infection. We will go ahead and start her on broad-spectrum intravenous antibiotics. She needs a rapid COVID antigen given that COVID has gone through her house. She has done amazingly well and attributes that largely to her vaccination and booster vaccine. We will give her nicotine replacement patch and continue to encourage her for complete tobacco cessation. Follow up creatinine in the morning after IV hydration. May need nephrology consultation if does not correct. Inpatient status is most appropriate as we anticipate a length of stay of 2-3 midnights while we work this through. We will slowly advance her diet as she tolerates. She can use SCD for DVT prophylaxis. History of Present Illness History of Present Illness 11/07, nasuea, burning, pain, weakness, she feels unwell and cannot DC today she says cont current consult GI, check KUB, give Pepcid, check lipase 11/06 Patient evaluated examined at bedside. Advance diet as tolerated. Was asking for solid food today. Improved diarrhea. Kidneys improving as well. If continued improvement plan for discharge in the morning. Jameson with bedside RN. Vitals/I&O Vitals/I&O: Vital Signs Date Time Temp Pulse Resp B/P (MAP) Pulse Ox O2 Delivery O2 Flow Rate FiO2 11/07/21 12:06 18 Nasal Cannula 2.0 11/07/21 11:14 97.8 86 148/76 (100) 93 97.8 I & O 11/06/21 11/06/21 11/07/21 15:00 23:00 07:00 Intake Total 1000 ml 900 ml Balance 1000 ml 900 ml Physical Exam General: Alert, Oriented X3, Cooperative Heart: Regular rate, Normal S1, Normal S2 Lungs: Clear Abdomen: Normal bowel sounds, Soft, No tenderness Extremities: No edema, Normal pulses Skin: No significant lesion Assessment and Plan Assessmemt and Plan Problems Medical Problems: (1) Abdominal pain Status: Acute (2) MARTY (acute kidney injury) Status: Acute Comment Review of Relevant I have reviewed the following items vic (where applicable) has been applied. Justifications for Admission Other Justification SCOTTIE SANDOVAL MD Nov 07, 2021 14:57
[2021-11-07 15:05] VITALS: BP 138/59
[2021-11-07 15:33] LABS: ALBUMIN 3.2 g/dL (3.4-5.0); ALBUMIN/GLOBULIN RATIO 1.2 (1.0-1.7); CALCIUM 8.4 mg/dL (8.5-10.1); CREATININE 1.2 mg/dL (0.6-1.0); GFR 43.6; POTASSIUM 4.1 mmol/L (3.5-5.1); TOTAL BILIRUBIN 0.6 mg/dL (0.2-1.0); TOTAL PROTEIN 5.9 g/dL (6.4-8.2)
[2021-11-07] MEDS: PANTOPRAZOLE IV PUSH 40 MG VIAL. IVP SCH (15:52)
--- NOTE | 2021-11-07 16:31 | RAD ---
XR ABDOMEN 1V Clinical Indication: Reason: abd pain / Spl. Instructions: / History: Comparison: CT chest abdomen and pelvis with contrast November 03, 2021. Findings: Oral contrast has now reached the distal colon indicating there is no obstruction. No dilated small b owel is seen. There is no obvious colon wall thickening. Abdominal aorta vascular stent. No definite pleural effusion. Mild blunting of the costophrenic sulci laterally. IMPRESSION: Nonobstructive bowel gas pattern. Electronically signed by: Tyler Pacheco MD (11/07/2021 4:29 PM) [id number]
[2021-11-07 19:45] VITALS: BP 141/85
[2021-11-07] MEDS: LORazepam 0.5 MG TABLET PO PRN (20:01)
--- NOTE | 2021-11-07 20:10 | NUR ---
Patient c/o shortness of air. IV fluids decreased to 25cc/hr and Oxygen increased to 3L/ min. Resp. rate 24 and shallow, HR 124, O2 sat 88% on 3L/min per NC, B/P 141/85. Patient given Morphine IV and Lorazepam PO. Will continue to monitor.
--- NOTE | 2021-11-07 20:47 | NUR ---
Dr. Keyes called regarding patient's change in condition. Orders received. Lasix 40mg given IV per order. RT called for breathing treatment.
[2021-11-07] MEDS ORDERED: FUROSEMIDE 40 MG/4 ML VIAL. IVP ONE (21:00)
--- NOTE | 2021-11-07 21:00 | NUR ---
Dr. Keyes here to see patient. Order received for Solu-Medrol. 16FR richardson inserted without difficulty. Urine is pale yellow and clear. RT here to see patient. Patient given breathing treatment and was placed on non-rebreather mask at 15L. O2 sat improving with non-rebreather mask and patient is resting more comfortably.
[2021-11-07] MEDS: methylPREDNISolone SOD SUCC PF 40 MG/ML VIAL. IV SCH (21:31)
--- NOTE | 2021-11-07 21:31 | PN ---
DATE: 11/07/2021 CHIEF COMPLAINT: Respiratory distress. HISTORY OF PRESENT ILLNESS: The patient is a pleasant 75-year-old female who has been in the hospital for the past couple of days for nausea, vomiting, diarrhea and renal failure. She got IV fluids. The nurse call me this evening explained that she was short of breath. She felt like the patient was probably volume overloaded. We turned the fluids down. We gave her some Lasix and placed a Burr. I went ahead and saw the patient, examined her. Heart tones are distant with S1, S2 and a soft S3. She also has decreased breath sounds with diffuse wheezing. ASSESSMENT AND PLAN: Multifactorial respiratory failure, suspect chronic obstructive pulmonary disease exacerbation and acute on chronic systolic and diastolic heart failure. As previously stated, we placed a Burr and gave her 40 of Lasix. I called the pharmacy and ordered 40 of IV Solu-Medrol q. 12 hours. I asked the nurse to have respiratory therapy come by and give her a breathing treatment. Prognosis guarded. SOCORRO DR: Leonard TID: [id number]
[2021-11-07 23:24] VITALS: BP 97/40
[2021-11-08] VITALS (11 sets, daily range): BP systolic 91–166; BP diastolic 33–76
[2021-11-08] MEDS: MORPHINE SULFATE 2 MG/ML INJ. IVP PRN ×5 (00:26→15:13)
[2021-11-08] MEDS: ALBUTEROL SULFATE 2.5 MG/3 ML NEBU. NEB SCH ×3 (07:18→21:00)
[2021-11-08] MEDS: LIPASE/PROTEAS/AMYLAS 10/32/42 CAPSULE.DR. PO SCH ×3 (07:27→16:16)
[2021-11-08] MEDS: ASPIRIN ENTERIC COATED 81 MG TABLET.DR. PO SCH (07:29)
[2021-11-08] MEDS: FLUoxetine HCL 20 MG CAPSULE PO SCH (07:30)
[2021-11-08] MEDS: BENZONATATE 100 MG CAPSULE. PO SCH ×3 (07:30→21:13)
[2021-11-08] MEDS: LACTOBACILLUS RHAMNOSUS GG 1 CAPSULE. PO SCH ×2 (07:30→21:13)
[2021-11-08] MEDS: methylPREDNISolone SOD SUCC PF 40 MG/ML VIAL. IV SCH ×2 (07:32→21:13)
[2021-11-08] MEDS: NICOTINE 21MG PATCH. TD SCH (07:36)
[2021-11-08] MEDS: PANTOPRAZOLE IV PUSH 40 MG VIAL. IVP SCH (07:37)
[2021-11-08] MEDS: NON FORMULARY ITEM (Fluticasone/Umeclidin/Vilanter (Trelegy Ellipta 100-62.5-25) 1 EACH) INH SCH (07:37)
--- NOTE | 2021-11-08 07:45 | NUR ---
Bhumi is sitting in semi fowlers and states she can not catch her breath. o2 changed from nasal cannula and switched to the venti mask. we called for resp tx. she had refused it earlier. after morphine and treatment resp less labored.
--- NOTE | 2021-11-08 10:00 | PDOC ---
Date of Service: DATE: 11/08/21 TIME: 09:53 Subjective: Subjective: Not feeling too good. Breathing better with mask. Abd pain was bad awhile ago, took medicine which helped. Hasn't eaten - "too sick" - drinking some water though. No vomiting, no stools. Everything is worse when she gets up and tries to move around. Objective: Objective: BNP >6000, given Lasix overnight. Per office chart - previous EUS through [facility] w/ normal PD. Vital Signs: Vital Signs Date Time Temp Pulse Resp B/P (MAP) Pulse Ox O2 Delivery O2 Flow Rate FiO2 11/08/21 07:58 92 Venturi Mask 15.0 11/08/21 07:29 22 11/08/21 07:15 98.6 114 151/72 (98) 98.6 Labs: Laboratory Tests Test 11/07/21 14:43 Sodium Level 139 mmol/L Potassium Level 4.1 mmol/L Chloride Level 104 mmol/L Carbon Dioxide Level 24 mmol/L Anion Gap 11 Blood Urea Nitrogen 9 mg/dL Creatinine 1.2 mg/dL Estimated GFR (Cockcroft-Gault) 43.6 BUN/Creatinine Ratio 8 Glucose Level 100 mg/dL Calcium Level 8.4 mg/dL Total Bilirubin 0.6 mg/dL Aspartate Amino Transf (AST/SGOT) 32 U/L Alanine Aminotransferase (ALT/SGPT) 21 U/L Alkaline Phosphatase 61 U/L [id number] Natriuretic Peptide 6074 pg/mL Total Protein 5.9 g/dL Albumin 3.2 g/dL Albumin/Globulin Ratio 1.2 Lipase 54 U/L Imaging: KUB 11/07 IMPRESSION: Nonobstructive bowel gas pattern. PE: GEN: thin, appears ill LUNGS: diminished, Venturi mask 15L HEART: RRR ABD: soft, diffuse discomfort NEURO/PSYCH: A & O 3 A/P: Resp failure Chronic/recurrent abdominal pain, weight loss w/ h/o mesenteric ischemia s/p celiac stent UTI -- Address resp issues. Could consider CTA A/P later on. Justicifation of Admission Dx: Justifications for Admission: Justification of Admission Dx: Yes YANY ROSS Nov 08, 2021 10:00
--- NOTE | 2021-11-08 10:30 | NUR ---
Bhumi is complaining of severe pain in the epigastric area; she was medicated with morphine at that time. It was scanned but did not record. spoke with her and her son regarding plan of care, medications and why we have the mask on her, started her ivpb . she remains on the venti mask.
--- NOTE | 2021-11-08 11:33 | PDOC ---
[facility] PROGRESS NOTE Date of Service DOS: DATE: 11/08/21 TIME: 11:29 Chief Complaint Chief Complaint chronic obstructive pulmonary disease iwth exacerbation acute hypoxic respiratory failure, chronic hypercarbic respiratory failure cachexia history of pancreatitis may have chronic, GI following Acute renal insufficiency likely secondary to prerenal azotemia. New opacification of her right middle lobe with concern for endobronchial mass tobacco use disorder History of Present Illness History of Present Illness 11/08, DR. Keyes was called last night for resp distress, started Solumedrol, nebs given, pt still hypoxia this AM, 10 liters, consutl PULM, conslut CV, pt has BNP 6000 range, could be Cor pulmonale, COPD may be severe, FEV1 looks low on exam her son is here to discusss, prognosis may be poor 11/07, nasuea, burning, pain, weakness, she feels unwell and cannot DC today she says cont current consult GI, check KUB, give Pepcid, check lipase 11/06 Patient evaluated examined at bedside. Advance diet as tolerated. Was asking for solid food today. Improved diarrhea. Kidneys improving as well. If continued improvement plan for discharge in the morning. Jameson with bedside RN. Vitals/I&O Vitals/I&O: Vital Signs Date Time Temp Pulse Resp B/P (MAP) Pulse Ox O2 Delivery O2 Flow Rate FiO2 11/08/21 11:00 98.7 111 18 123/76 (92) 90 Venturi Mask 10.0 98.7 I & O 11/07/21 11/07/21 11/08/21 15:00 23:00 07:00 Intake Total 240 ml 120 ml Output Total 500 ml 1000 ml Balance -260 ml 120 ml -1000 ml Physical Exam Physical Exam: thin an frail appearance, BMI 15 General: Alert, Oriented X3, Cooperative, mild distress Heart: Regular rate, Normal S1, Normal S2 Lungs: Clear, Other (low volume, end rales) Abdomen: Normal bowel sounds, Soft, No tenderness Extremities: No edema, Normal pulses Skin: No significant lesion Labs Labs: Laboratory Tests Test 11/07/21 14:43 Sodium Level 139 mmol/L (136-145) Potassium Level 4.1 mmol/L (3.5-5.1) Chloride Level 104 mmol/L (98-107) Carbon Dioxide Level 24 mmol/L (21-32) Anion Gap 11 (6-14) Blood Urea Nitrogen 9 mg/dL (7-20) Creatinine 1.2 mg/dL (0.6-1.0) Estimated GFR (Cockcroft-Gault) 43.6 BUN/Creatinine Ratio 8 (6-20) Glucose Level 100 mg/dL (70-99) Calcium Level 8.4 mg/dL (8.5-10.1) Total Bilirubin 0.6 mg/dL (0.2-1.0) Aspartate Amino Transf (AST/SGOT) 32 U/L (15-37) Alanine Aminotransferase (ALT/SGPT) 21 U/L (14-59) Alkaline Phosphatase 61 U/L (46-116) YQ-Ctv-P-Type Natriuretic Peptide 6074 pg/mL (0-449) Total Protein 5.9 g/dL (6.4-8.2) Albumin 3.2 g/dL (3.4-5.0) Albumin/Globulin Ratio 1.2 (1.0-1.7) Lipase 54 U/L (73-393) Assessment and Plan Assessmemt and Plan Problems Medical Problems: (1) Abdominal pain Status: Acute (2) MARTY (acute kidney injury) Status: Acute Comment Review of Relevant I have reviewed the following items vic (where applicable) has been applied. Medications: Current Medications Medications (Trade) Dose Ordered Sig/Tamiko Route PRN Reason Start Time Stop Time Status Last Admin Dose Admin Famotidine (Pepcid Vial) 20 mg 1X ONCE IVP 11/07/21 14:15 11/07/21 14:26 DC 11/07/21 15:51 Pantoprazole Sodium (PROTONIX VIAL for IV PUSH) 40 mg DAILYAC IVP 11/07/21 16:30 11/08/21 07:37 Furosemide (Lasix) 40 mg 1X ONCE IVP 11/07/21 21:00 11/07/21 21:01 DC 11/07/21 20:47 Methylprednisolone Sodium Succinate (SOLU-Medrol 40MG VIAL) 40 mg Q12HR IV 11/07/21 21:00 11/08/21 07:32 Justifications for Admission Other Justification SCOTTIE SANDOVAL MD Nov 08, 2021 11:32
[2021-11-08] MEDS: AZITHROMYCIN 500 MG in IV NORMAL SALINE 250ML 250 ML IV SCH (12:05)
[2021-11-08] MEDS: cefTRIAXone IV Push 1 GM VIAL. IVP SCH (12:06)
--- NOTE | 2021-11-08 12:18 | CONS ---
DATE OF CONSULTATION: 11/08/2021 PULMONARY CONSULTATION ATTENDING PHYSICIAN: Dr. Martinez. REASON FOR CONSULTATION: COPD exacerbation. HISTORY OF PRESENT ILLNESS: The patient is a 75-year-old who has suspected severe COPD. She was brought into the hospital with a complaint of a cough. The patient lives with her son. She is fully vaccinated with COVID. She also was boosted with Moderna on 08/02. The patient was noted to be clinically dehydrated as her BUN and creatinine was 27 and 1.7. As a result, she was placed on IV fluids. Since then, her oxygen requirement has increased. She is starting to have a cough with yellow sputum production as well. She is currently requiring 10 liters of oxygen. The patient denies any chest pain, no headaches, no nausea, vomiting, no diarrhea. I have reviewed the patient's chest x-ray and it shows prominent interstitial marking and small basal pleural effusions. She also had a CT chest and abdomen on admission. There was evidence of severe emphysema and near complete atelectasis of the right middle lobe. There was a filling defect in the proximal aspect of the lateral segment bronchus of the right middle lobe. There was no pleural effusion. Consultation is requested for further evaluation and management. PAST MEDICAL HISTORY: Significant for history of suspected severe COPD. History of protein-calorie malnutrition. History of chronic nicotine dependence. History of chronic pancreatitis. PAST SURGICAL HISTORY: No recent surgeries. ALLERGIES: None. MEDICATIONS: Reviewed as listed in the [facility] including IV Solu-Medrol. She is also on Zithromax and Rocephin and she received Lasix last night. REVIEW OF SYSTEMS: Twelve-point review of system obtained. Pertinent positives discussed in my present illness, otherwise noncontributory. All systems that were negative were reviewed as well. FAMILY HISTORY: Noncontributory to lungs. SOCIAL HISTORY: Has at least 45 years of tobaccoism. PHYSICAL EXAMINATION: VITAL SIGNS: Reviewed. Blood pressure 123/76. Pulse ox 90% on 10 liters oxygen. Afebrile. NECK: Supple. LUNGS: With crackles bilaterally. CARDIOVASCULAR: With a regular rate. ABDOMEN: Soft. EXTREMITIES: With no pitting edema. LABORATORY DATA: Labs are reviewed. ProBNP was 6074. BUN down to 9 and creatinine 1.2. COVID rapid is negative. White cell count is 9.7, hemoglobin 12.4 and platelets are 210. IMPRESSION: 1. Acute hypoxic respiratory failure with progressive worsening since hospitalization. It could be a combination of underlying severe chronic obstructive pulmonary disease, acute bronchitis and in addition, Likely superimposed congestive heart failure from IV fluid hydration. 2. Suspected underlying severe chronic obstructive pulmonary disease. 3. Updated vaccination for COVID. 4. Abnormal CT chest with evidence of near complete atelectasis of the right middle lobe. Likely mucus plugging. Cannot exclude the possibility of endobronchial lesion. RECOMMENDATIONS: 1. Discussed with RN and Dr. Martinez. At this time, I would stop the IV fluids. 2. Follow up chest x-ray to rule out any worsening interstitial edema. 3. Continue present antibiotics. 4. Based on the chest x-ray, we will decide for any extra Lasix. The patient's renal function has improved. 5. Continue with present IV Solu-Medrol. 6. Add DuoNebs./pulmicort 7. We will follow along with you. addend: CXR with worsening interstitial edema. IV lasix ordered ADITHYA DR: Avery TID: [id number] MTDD
[2021-11-08] MEDS: IPRATRPIUM/ALBUTEROL 0.5/2.5MG 3 ML NEBU. NEB SCH ×3 (13:00→20:00)
--- NOTE | 2021-11-08 13:08 | PDOC2 ---
CARDIAC CONSULT DATE OF CONSULT Date of Consult DATE: 11/08/21 TIME: 13:06 REASON FOR CONSULT Reason for Consult: CHF REFERRING PHYSICIAN Referring Physician: Dr. Martinez SOURCE Source: Chart review, Patient HISTORY OF PRESENT ILLNESS HISTORY OF PRESENT ILLNESS This is a 75 yo female who presented on 11/04/21 due to epigastric pain, nausea/vomiting, and diarrhea. Patient reports pain had been present for a week. Was much worse on day of arrival, which prompted her visit to the ED. Initial labs notable for MARTY. IV fluids were initiated. Patients oxygen requirements have increased and she began having cough with yellow sputum. CXR with interstitial markings in small bilateral pleural effusions. Cardiology consult obtained for CHF. IV Lasix was administered last night. Patient reports mild improvement in symptoms. Repeat CXR pending. Patient denies and chest pain, palpitations, dizziness, or diaphoresis. PAST MEDICAL HISTORY Cardiovascular: HTN, Hyperlipidemia, Valve insufficiency, Other (PAD) Pulmonary: COPD GI: Other (pancreatitis, colitis ) Heme/Onc: Cancer (uterine ) Psych: Anxiety, Depression Musculoskeletal: Osteoarthritis PAST SURGICAL HISTORY Past Surgical History: Appendectomy, Cholecystectomy, Tonsillectomy, Hysterectomy, Other (hemorrhoidectomy, celiac artery stent, left leg fracture repair) FAMILY HISTORY Family History: Other (noncontributory ) SOCIAL HISTORY Smoke: <1 pack per day ALCOHOL: none Drugs: None Lives: with Family CURRENT MEDICATIONS CURRENT MEDICATIONS Current Medications Medications (Trade) Dose Ordered Sig/Tamiko Route PRN Reason Start Time Stop Time Status Last Admin Dose Admin Famotidine (Pepcid Vial) 20 mg 1X ONCE IVP 11/07/21 14:15 11/07/21 14:26 DC 11/07/21 15:51 Pantoprazole Sodium (PROTONIX VIAL for IV PUSH) 40 mg DAILYAC IVP 11/07/21 16:30 11/08/21 07:37 Furosemide (Lasix) 40 mg 1X ONCE IVP 11/07/21 21:00 11/07/21 21:01 DC 11/07/21 20:47 Methylprednisolone Sodium Succinate (SOLU-Medrol 40MG VIAL) 40 mg Q12HR IV 11/07/21 21:00 11/08/21 07:32 ALLERGIES ALLERGIES: Coded Allergies: No Known Drug Allergies (Unverified , 11/03/21) ROS Review of System 14 point ROS conducted with pertinent positives noted above in HPI PHYSICAL EXAM General: Alert, Oriented X3, Cooperative HEENT: Atraumatic Lungs: Other (diminished, crackles ) Heart: Other (heart tones regular, mildly tachycardic. not on tele) Abdomen: Soft Extremities: No edema Skin: No significant lesion Neuro: Normal speech, Sensation intact Psych/Mental Status: Mental status NL, Mood NL MUSCULOSKELETAL: Osteoarthritic changes both hands VITALS/I&O VITALS/I&O: Vital Signs Date Time Temp Pulse Resp B/P (MAP) Pulse Ox O2 Delivery O2 Flow Rate FiO2 11/08/21 12:11 Venturi Mask 11/08/21 11:00 98.7 111 18 123/76 (92) 90 10.0 98.7 I & O 11/07/21 11/07/21 11/08/21 15:00 23:00 07:00 Intake Total 240 ml 120 ml Output Total 500 ml 1000 ml Balance -260 ml 120 ml -1000 ml LABS Lab: Laboratory Tests Test 11/07/21 14:43 Sodium Level 139 mmol/L (136-145) Potassium Level 4.1 mmol/L (3.5-5.1) Chloride Level 104 mmol/L (98-107) Carbon Dioxide Level 24 mmol/L (21-32) Anion Gap 11 (6-14) Blood Urea Nitrogen 9 mg/dL (7-20) Creatinine 1.2 mg/dL (0.6-1.0) H Estimated GFR (Cockcroft-Gault) 43.6 BUN/Creatinine Ratio 8 (6-20) Glucose Level 100 mg/dL (70-99) H Calcium Level 8.4 mg/dL (8.5-10.1) L Total Bilirubin 0.6 mg/dL (0.2-1.0) Aspartate Amino Transferase (AST) 32 U/L (15-37) Alanine Aminotransferase (ALT) 21 U/L (14-59) Alkaline Phosphatase 61 U/L (46-116) PV-Vqy-M-Type Natriuretic Peptide 6074 pg/mL (0-449) H Total Protein 5.9 g/dL (6.4-8.2) L Albumin 3.2 g/dL (3.4-5.0) L Albumin/Globulin Ratio 1.2 (1.0-1.7) Lipase 54 U/L (73-393) L Laboratory Tests 11/07/21 14:43 ECHOCARDIOGRAM ECHOCARDIOGRAM <Conclusion> The left ventricle is normal size. The left ventricular systolic function is normal and the ejection fraction is within normal range. The Ejection Fraction is 50-55%. There is no significant aortic valvular stenosis. Doppler and Color Flow revealed no significant aortic regurgitation. Doppler and Color Flow revealed trace mitral valve regurgitation. Doppler and Color Flow revealed moderate tricuspid regurgitation. The PA pressure was estimated at 38 mmHg. Doppler and Color Flow revealed moderate pulmonic valvular regurgitation. There is no evidence of significant pericardial effusion. DATE: 08/10/15 0949 STRESS TEST STRESS TEST Conclusion 1. 1. No evidence of stress induced EKG changes. 2. 2. Normal myocardial perfusion at stress and rest. 3. 3. Normal EF with stress. 4. 4. Low risk stress study. DATE: 08/09/15 1528 ASSESSMENT/PLAN ASSESSMENT/PLAN 1. Acute on chronic respiratory failure, multifactorial with COPD, CHF, bronchitis. ? endobronchial lesion. 2. Acute on chronic diastolic CHF 3. MARTY; improved s/p IVFs 4. Acute on chronic abdominal pain with history of pancreatitis 5. H/o mesenteric ischemia s/p celiac stent 6. Hypertension; controlled 7. Hyperlipidemia 8. UTI 9. Tobaccoism; discussed/encouraged cessation Recommendations Diuresis with monitoring or renal function IVFs discontinued Monitor I and O Echocardiogram to assess LV systolic function Secondary prevention EKG Place on telemetry. Supportive care FERNANDO NORRIS APRN Nov 08, 2021 13:08
--- NOTE | 2021-11-08 14:31 | EKG ---
[facility] [address] [place] [address] Test Date: 2021-11-08 Test Time: 14:26:47 Pat Name: CLAUDIA BAUTISTA Department: Room: 442 1 Gender: F [employer]: AMBER : 1945 Requested By: FERNANDO NORRIS Order Number: [id number] Reading MD: Davidson Baca Measurements Intervals [place] Rate: 93 P: 70 NV: 126 QRS: 3 QRSD: 70 T: 163 QT: 400 QTc: 500 Interpretive Statements SINUS RHYTHM LOW LIMB LEAD VOLTAGE T ABNORMALITY IN ANTEROLATERAL LEADS PROLONGED QT ABNORMAL ECG Electronically Signed On 11-09-2021 8:28:08 DOWNSTAIRS MAID by Davidson Baca
[2021-11-08] MEDS ORDERED: FUROSEMIDE 40 MG/4 ML VIAL. IVP ONE (15:00)
--- NOTE | 2021-11-08 15:25 | RAD ---
XR CHEST 1V Clinical Indication: Reason: COPD / Spl. Instructions: / History: Comparison: AP chest, 2 days ago. Findings: Atherosclerotic thoracic aorta. Cardiac size is stable. There is emphysema. There are increased inter stitial opacities in the bilateral lung bases. There are small bilateral pleural effusions that are n ew. No pneumothorax. Bones appear stable. IMPRESSION: 1. Interstitial opacities in the bilateral lung bases have increased. Considerations include pneumon ia, asymmetric pulmonary edema, or atelectasis. 2. There are new small bilateral pleural effusions. Electronically signed by: Tyler Pacheco MD (11/08/2021 3:22 PM) [id number]
[2021-11-08 15:33] LABS: CHOLESTEROL/HDL RATIO 3.3
[2021-11-08] MEDS: HYDROcodone/APAP 7.5/325MG 1 TAB TABLET PO PRN (16:16)
--- NOTE | 2021-11-08 17:34 | NUR ---
Patient transferred to unit via bed from [address] [place] [address] at 1625. Report received from BEATRIZ GONZALES. Telemetry applied to patient. Per charge nurse patient is in AFIB RVR. Dr. Martinez and Bill pagedawson. Charge nurse to start Cardizem drip per Dr. Martinez orders
--- NOTE | 2021-11-08 17:41 | NUR ---
Per Dr. Khan continue with Taiwo kuo
[2021-11-08] MEDS: dilTIAZem HCL 125 MG in IV DEXTROSE 5% 100ML 100 ML IV PRN (17:43)
--- NOTE | 2021-11-08 19:10 | NUR ---
pt in bed assessment completed vss poc explained pt denies pain but pt is a little anxious will resume care and continue to monitor pt,call light in reach.
[2021-11-08] MEDS: BUDESONIDE 0.5 MG/2 ML NEBU. NEB SCH (20:00)
[2021-11-08] MEDS: LORazepam 0.5 MG TABLET PO PRN (21:13)
[2021-11-09] VITALS (13 sets, daily range): BP systolic 81–136; BP diastolic 40–61
[2021-11-09] MEDS: PANTOPRAZOLE IV PUSH 40 MG VIAL. IVP SCH (05:52)
[2021-11-09] MEDS: HYDROcodone/APAP 7.5/325MG 1 TAB TABLET PO PRN ×3 (05:53→19:22)
[2021-11-09] MEDS: BUDESONIDE 0.5 MG/2 ML NEBU. NEB SCH ×2 (07:56→20:30)
[2021-11-09] MEDS: IPRATRPIUM/ALBUTEROL 0.5/2.5MG 3 ML NEBU. NEB SCH ×4 (07:56→20:30)
[2021-11-09] MEDS: dilTIAZem HCL 125 MG in IV DEXTROSE 5% 100ML 100 ML IV PRN (08:27)
[2021-11-09] MEDS: ASPIRIN ENTERIC COATED 81 MG TABLET.DR. PO SCH (08:29)
[2021-11-09] MEDS: BENZONATATE 100 MG CAPSULE. PO SCH ×3 (08:29→20:45)
[2021-11-09] MEDS: methylPREDNISolone SOD SUCC PF 40 MG/ML VIAL. IV SCH ×2 (08:29→20:45)
[2021-11-09] MEDS: LACTOBACILLUS RHAMNOSUS GG 1 CAPSULE. PO SCH ×2 (08:29→20:45)
[2021-11-09] MEDS: FLUoxetine HCL 20 MG CAPSULE PO SCH (08:29)
[2021-11-09] MEDS: LIPASE/PROTEAS/AMYLAS 10/32/42 CAPSULE.DR. PO SCH ×3 (08:29→16:30)
[2021-11-09] MEDS: NICOTINE 21MG PATCH. TD SCH (08:31)
[2021-11-09] MEDS: NON FORMULARY ITEM (Fluticasone/Umeclidin/Vilanter (Trelegy Ellipta 100-62.5-25) 1 EACH) INH SCH (08:34)
[2021-11-09] MEDS: ALBUTEROL SULFATE 2.5 MG/3 ML NEBU. NEB SCH ×2 (09:00→20:31)
--- NOTE | 2021-11-09 10:01 | PDOC ---
PULMONARY PROGRESS NOTES DATE: 11/09/21 TIME: 09:56 Subjective Feels much better after diuresis. Developed A. fib RVR. Currently on Cardizem drip. Vitals Vital Signs Date Time Temp Pulse Resp B/P (MAP) Pulse Ox O2 Delivery O2 Flow Rate FiO2 11/09/21 08:00 Venturi Mask 10.0 11/09/21 07:57 93 11/09/21 07:00 96.5 65 20 93/43 (60) 96.5 General: Alert, No acute distress Lungs: Other (Diminished breath sounds at the bases.) Cardiovascular: S1 Abdomen: Soft Neuro Exam: Alert Extremities: Other (1+ edema.) Labs Laboratory Tests Test 11/07/21 14:43 11/08/21 14:25 Sodium Level 139 mmol/L (136-145) Potassium Level 4.1 mmol/L (3.5-5.1) Chloride Level 104 mmol/L (98-107) Carbon Dioxide Level 24 mmol/L (21-32) Anion Gap 11 (6-14) Blood Urea Nitrogen 9 mg/dL (7-20) Creatinine 1.2 mg/dL (0.6-1.0) Estimated GFR (Cockcroft-Gault) 43.6 BUN/Creatinine Ratio 8 (6-20) Glucose Level 100 mg/dL (70-99) Calcium Level 8.4 mg/dL (8.5-10.1) Total Bilirubin 0.6 mg/dL (0.2-1.0) Aspartate Amino Transf (AST/SGOT) 32 U/L (15-37) Alanine Aminotransferase (ALT/SGPT) 21 U/L (14-59) Alkaline Phosphatase 61 U/L (46-116) LV-Xeo-K-Type Natriuretic Peptide 6074 pg/mL (0-449) Total Protein 5.9 g/dL (6.4-8.2) Albumin 3.2 g/dL (3.4-5.0) Albumin/Globulin Ratio 1.2 (1.0-1.7) Lipase 54 U/L (73-393) Triglycerides Level 75 mg/dL (0-150) Cholesterol Level 191 mg/dL (0-200) LDL Cholesterol, Calculated 118 mg/dL (0-100) VLDL Cholesterol, Calculated 15 mg/dL (0-40) Non-HDL Cholesterol Calculated 133 mg/dL (0-129) HDL Cholesterol 58 mg/dL (40-60) Cholesterol/HDL Ratio 3.3 Thyroid Stimulating Hormone (TSH) 1.383 uIU/mL (0.358-3.74) Laboratory Tests Test 11/08/21 14:25 Triglycerides Level 75 mg/dL (0-150) Cholesterol Level 191 mg/dL (0-200) LDL Cholesterol, Calculated 118 mg/dL (0-100) VLDL Cholesterol, Calculated 15 mg/dL (0-40) Non-HDL Cholesterol Calculated 133 mg/dL (0-129) HDL Cholesterol 58 mg/dL (40-60) Cholesterol/HDL Ratio 3.3 Thyroid Stimulating Hormone (TSH) 1.383 uIU/mL (0.358-3.74) Medications Active Scripts Medications Dose Route/Sig Max Daily Dose Days Date Category Fluoxetine Hcl 20 Mg Capsule 20 Mg PO DAILY 11/04/21 Reported Hydrocodone-Apap 7.5-325 (Hydrocodone Bit/Acetaminophen) 1 Tab Tablet 1 Tab PO PRN Q6HRS PRN 11/04/21 Reported Ativan (Lorazepam) 0.5 Mg Tablet 0.5 Mg PO PRN BID PRN 11/04/21 Reported Trelegy Ellipta 100-62.5-25 (Fluticasone/Umeclidin/Vilanter) 1 Each Blst.w.dev 1 Each IH DAILY 11/04/21 Reported Aspir 81 (Aspirin) 81 Mg Tablet.dr 81 Mg PO 06/06/17 Reported Rosalina Ronquillo 36,000 Units Capsule (Lipase/Protease/Amylase) 1 Each Capsule.dr 2 Each PO TIDBFRMEAL 04/16/16 Reported Proair Hfa Inhaler (Albuterol Sulfate) 8.5 Gm Hfa.aer.ad 2 Puff IH BID 10/06/14 Reported Comments Chest x-ray reviewed 11/08/2021. Diffuse worsening interstitial edema and bilateral pleural effusions. Chest x-ray also reviewed 11/09/2021. Improving interstitial edema as well as pleural effusions. Impression . 1. Acute hypoxic respiratory failure with progressive worsening since hospitalization. This is secondary to combination of underlying severe chronic obstructive pulmonary disease, acute bronchitis and superimposed congestive heart failure from IV fluid hydration. 2. Suspected underlying severe chronic obstructive pulmonary disease. 3. Updated vaccination for COVID. 4. Abnormal CT chest with evidence of near complete atelectasis of the right middle lobe. Likely mucus plugging. Cannot exclude the possibility of endobronchial lesion. 5. Abnormal chest x-ray on 11/08 and 11/09 with diffuse interstitial edema and bilateral pleural effusions, improving with diuresis. 6. A. fib with RVR currently on Cardizem drip Plan . RECOMMENDATIONS: 1. Discussed with RN. Continue present nasal cannula. 2. Continue as needed diuresis. 3. Continue present antibiotics. 4. Management of atrial fibrillation per cardiology. Currently on Cardizem drip. 5. Continue with present IV Solu-Medrol. 6. DuoNebs./pulmicort 7. Follow renal function. ANA ROSA RODRIGUEZ MD Nov 09, 2021 10:00
--- NOTE | 2021-11-09 10:14 | PDOC ---
Date of Service: DATE: 11/09/21 TIME: 10:06 Subjective: Subjective: Doing better, able to eat, breathing better. Objective: Objective: D/w nurse - pt feeling better, no GI complaints, ate about half of breakfast. Vital Signs: Vital Signs Date Time Temp Pulse Resp B/P (MAP) Pulse Ox O2 Delivery O2 Flow Rate FiO2 11/09/21 08:00 Venturi Mask 10.0 11/09/21 07:57 93 11/09/21 07:00 96.5 65 20 93/43 (60) 96.5 Imaging: CXR 11/09 pending PE: GEN: NAD - appears much more comfortable today LUNGS: diminished, just with NC when I saw HEART: RRR ABD: soft, less discomfort NEURO/PSYCH: A & O 3 A/P: Abdominal pain, weight loss, h/o mesenteric ischemia Acute resp failure (CHF, COPD, bronchitis), MARTY - better A Fib, UTI COVID negative -- Better today. Discussed checking interval CTA if symptoms unresolved/worse - her preference is to hold off for now. Justicifation of Admission Dx: Justifications for Admission: Justification of Admission Dx: Yes YANY ROSS Nov 09, 2021 10:14
--- NOTE | 2021-11-09 10:19 | RAD ---
Single view of the chest. 11/09/2021 8:57 AM Indication: Congestive heart failure Comparison: Chest radiograph November 08, 2021 Findings: There are small bilateral pleural effusions. Basilar infiltrates are again noted. Persisten t right middle lobe atelectasis noted. No pneumothorax is seen. Heart size is top normal. Bony thorax is unchanged. Severe emphysematous disease is stable. Impression: 1.Bilateral basilar opacities likely infiltrates with underlying effusions. 2. Radiographic or CT follow-up to ensure resolution is recommended 3. Severe emphysema Electronically signed by: Clifton Ospina MD (11/09/2021 10:17 AM) [id number]
[2021-11-09] MEDS ORDERED: POLYETHYLENE GLYCOL 3350 17 GM PACKET. PO PRN (10:30)
[2021-11-09] MEDS ORDERED: BISACODYL 5 MG TABLET.DR. PO PRN (10:30)
--- NOTE | 2021-11-09 11:33 | PDOC ---
[employer] PROGRESS NOTE Date of Service DOS: DATE: 11/09/21 TIME: 11:33 Chief Complaint Chief Complaint Chronic COPD Chronic respiratory failure Acute on chronic systolic diastolic heart failure History of pancreatitis Gastrointestinal symptoms Azotemia Dehydration New opacification of her right middle lobe with concern for endobronchial mass Tobacco abuse Bronchitis Effusions A. fib with RVR . History of Present Illness History of Present Illness 11/09/2021 Patient seen and examined She is doing better with the Solu-Medrol and breathing treatments and Lasix Discussed with RN Discussed with case management Chart reviewed 11/08, DR. Del Rio was called last night for resp distress, started Solumedrol, nebs given, pt still hypoxia this AM, 10 liters, consutl PULM, conslut CV, pt has BNP 6000 range, could be Cor pulmonale, COPD may be severe, FEV1 looks low on exam her son is here to discusss, prognosis may be poor 11/07, nasuea, burning, pain, weakness, she feels unwell and cannot DC today she says cont current consult GI, check KUB, give Pepcid, check lipase 11/06 Patient evaluated examined at bedside. Advance diet as tolerated. Was asking for solid food today. Improved diarrhea. Kidneys improving as well. If continued improvement plan for discharge in the morning. Jameson with bedside RN. Vitals/I&O Vitals/I&O: Vital Signs Date Time Temp Pulse Resp B/P (MAP) Pulse Ox O2 Delivery O2 Flow Rate FiO2 11/09/21 10:20 97.5 80 20 104/47 (66) 94 Nasal Cannula 4.5 97.5 I & O 11/08/21 11/08/21 11/09/21 15:00 23:00 07:00 Intake Total 240 ml 220 ml 50 ml Output Total 1350 ml 350 ml Balance 240 ml -1130 ml -300 ml Physical Exam Physical Exam: thin an frail appearance, BMI 15 General: Alert, Oriented X3, Cooperative Heart: Other (heart tones regular, mildly tachycardic. not on tele) Lungs: Other (Diminished breath sounds at the bases.) Abdomen: Soft Extremities: No edema Skin: No significant lesion Labs Labs: Laboratory Tests Test 11/08/21 14:25 Triglycerides Level 75 mg/dL (0-150) Cholesterol Level 191 mg/dL (0-200) LDL Cholesterol, Calculated 118 mg/dL (0-100) VLDL Cholesterol, Calculated 15 mg/dL (0-40) Non-HDL Cholesterol Calculated 133 mg/dL (0-129) HDL Cholesterol 58 mg/dL (40-60) Cholesterol/HDL Ratio 3.3 Thyroid Stimulating Hormone (TSH) 1.383 uIU/mL (0.358-3.74) Assessment and Plan Assessmemt and Plan Problems Medical Problems: (1) Abdominal pain Status: Acute (2) MARTY (acute kidney injury) Status: Acut Chronic COPD Chronic respiratory failure Acute on chronic systolic diastolic heart failure History of pancreatitis Gastrointestinal symptoms Azotemia Dehydration New opacification of her right middle lobe with concern for endobronchial mass Tobacco abuse Bronchitis Effusions A. fib with RVR Plan Cardiac monitoring Negative chronotropic agents per cardiology Duo nebs Steroids Oxygen Home meds DVT prophylaxis Full code Encourage p.o. intake PT OT Trend labs Long-term prognosis guarded Appreciate subspecialist input please see below Per pulmonary recommendations please see the following we certainly agree and appreciate their input; Impression . 1. Acute hypoxic respiratory failure with progressive worsening since hospitalization. This is secondary to combination of underlying severe chronic obstructive pulmonary disease, acute bronchitis and superimposed congestive heart failure from IV fluid hydration. 2. Suspected underlying severe chronic obstructive pulmonary disease. 3. Updated vaccination for COVID. 4. Abnormal CT chest with evidence of near complete atelectasis of the right middle lobe. Likely mucus plugging. Cannot exclude the possibility of endobronchial lesion. 5. Abnormal chest x-ray on 11/08 and 11/09 with diffuse interstitial edema and bilateral pleural effusions, improving with diuresis. 6. A. fib with RVR currently on Cardizem drip Plan Plan . RECOMMENDATIONS: 1. Discussed with RN. Continue present nasal cannula. 2. Continue as needed diuresis. 3. Continue present antibiotics. 4. Management of atrial fibrillation per cardiology. Currently on Cardizem drip. 5. Continue with present IV Solu-Medrol. 6. DuoNebs./pulmicort 7. Follow renal function. Cardiology recommendations please see the following we certainly agree and appreciate their input as well; ASSESSMENT/PLAN 1. Acute on chronic respiratory failure, multifactorial with COPD, CHF, bronchitis. ? endobronchial lesion. 2. Acute on chronic diastolic CHF 3. MARTY; improved s/p IVFs 4. Acute on chronic abdominal pain with history of pancreatitis 5. H/o mesenteric ischemia s/p celiac stent 6. Hypertension; controlled 7. Hyperlipidemia 8. UTI 9. Tobaccoism; discussed/encouraged cessation Recommendations Diuresis with monitoring or renal function IVFs discontinued Monitor I and O Echocardiogram to assess LV systolic function Secondary prevention EKG Place on telemetry. Supportive care Comment Review of Relevant I have reviewed the following items vic (where applicable) has been applied. Medications: Current Medications Medications (Trade) Dose Ordered Sig/Tamiko Route PRN Reason Start Time Stop Time Status Last Admin Dose Admin Albuterol/ Ipratropium (Duoneb) 3 ml RTQID NEB 11/08/21 13:00 11/09/21 07:56 Budesonide (Pulmicort) 0.5 mg RTBID NEB 11/08/21 20:00 11/09/21 07:56 Furosemide (Lasix) 40 mg 1X ONCE IVP 11/08/21 15:00 11/08/21 15:01 DC 11/08/21 15:17 Diltiazem HCl 125 mg/Dextrose 125 ml @ 5 mls/hr CONT PRN IV PER PROTOCOL 11/08/21 17:45 11/09/21 08:27 Justifications for Admission Other Justification CHANTALE DEL RIO III DO Nov 09, 2021 11:33
[2021-11-09] MEDS: PANTOPRAZOLE 40 MG TABLET.DR. PO SCH (12:58)
[2021-11-09] MEDS: cefTRIAXone IV Push 1 GM VIAL. IVP SCH (12:59)
--- NOTE | 2021-11-09 13:41 | PDOC ---
CARDIO Progress Notes Date and Time Date of Service 11/09/2021 Time of Evaluation 1320 Subjective Subjective: No Chest Pain, No Palpitations, Other (SOA better) Vitals Vitals Vital Signs Date Time Temp Pulse Resp B/P (MAP) Pulse Ox O2 Delivery O2 Flow Rate FiO2 11/09/21 12:57 Nasal Cannula 5.0 11/09/21 11:36 96 11/09/21 10:20 97.5 80 20 104/47 (66) 97.5 Weight Weight [ ] Input and Output Intake and Output Intake and Output 11/09/21 07:00 Intake Total 510 ml Output Total 1700 ml Balance -1190 ml Intake Oral 510 ml Output Urine Total 1700 ml Laboratory Labs Laboratory Tests Test 11/08/21 14:25 Triglycerides Level 75 mg/dL (0-150) Cholesterol Level 191 mg/dL (0-200) LDL Cholesterol, Calculated 118 mg/dL (0-100) VLDL Cholesterol, Calculated 15 mg/dL (0-40) Non-HDL Cholesterol Calculated 133 mg/dL (0-129) HDL Cholesterol 58 mg/dL (40-60) Cholesterol/HDL Ratio 3.3 Thyroid Stimulating Hormone (TSH) 1.383 uIU/mL (0.358-3.74) Microbiology Micro Microbiology 11/03/21 Urine Culture - Final, Complete Klebsiella Pneumoniae Physical Exam HEENT: Neck Supple W Full Motion Chest: Symmetric LUNGS: Other (diminished with 4LPM O2 via NC) Heart: irregularly irregular (AFIB) Abdomen: Soft N/T Extremities: No Edema Neurology: alert, oriented, follow commands Assessment Assessment 1. Acute on chronic respiratory failure, multifactorial with COPD, CHF, bronchitis. ? endobronchial lesion. 2. Acute on chronic diastolic CHF: now compensated 3. MARTY; improved s/p IVFs 4. Acute on chronic abdominal pain with history of pancreatitis 5. H/o mesenteric ischemia s/p celiac stent 6. Hypertension; controlled 7. Hyperlipidemia 8. UTI 9. Tobaccoism; discussed/encouraged cessation 10. AFIB RVR: rate better with cardizem drip. new onset Recommendations Continue cardizem drip. Will change to either BB or CCB PO depending on TTE result Lasix PRN Continue ASA. Will consider anticoagulation if she does not convert to SR and will consider for antiarrhythmic as well. Secondary prevention Justicifation of Admission Dx: Justifications for Admission: Justification of Admission Dx: Yes KAITY CASTRO APRN Nov 09, 2021 13:41
--- NOTE | 2021-11-09 13:43 | NUR ---
SS following up with discharge planning. SS reviewed pt chart and discussed with pt RN. Pt is from home with son and is currently requiring oxygen at five liters nasal canula. COVID19 negative. Cardiology, Pulmonology, and GI following. Pt has no home oxygen. Cardizem drip. Pt on IV Solu-Medrol and IV Rocephin. Not ready. SS will continue to follow for discharge planning.
[2021-11-09 15:53] LABS: CREATININE 1.7 mg/dL (0.6-1.0); GFR 29.1; POTASSIUM 3.6 mmol/L (3.5-5.1)
--- NOTE | 2021-11-09 19:20 | NUR ---
Pt c/o abd. pain assessment completed vss poc explained will medicate pt for pain call light in reach bed alarm set will resume care and continue to monitor pt.
[2021-11-09] MEDS: LORazepam 0.5 MG TABLET PO PRN (20:45)
[2021-11-10 02:42] VITALS: BP 95/50
[2021-11-10] MEDS: PANTOPRAZOLE 40 MG TABLET.DR. PO SCH (05:55)
[2021-11-10 07:00] VITALS: BP 114/58
[2021-11-10] MEDS: IPRATRPIUM/ALBUTEROL 0.5/2.5MG 3 ML NEBU. NEB SCH ×2 (07:21→12:34)
[2021-11-10] MEDS: BUDESONIDE 0.5 MG/2 ML NEBU. NEB SCH (07:21)
--- NOTE | 2021-11-10 07:48 | CARD ---
MR#: [id number] Date of Study: 11/09/2021 Ordering Physician: FERNANDO NORRIS, Referring Physician: FERNANDO NORRIS, Hernán: Pedro Hoang RUST APPROVED REPORT EXAM: Two-dimensional and M-mode echocardiogram with Doppler and color Doppler. Other Information Quality : AverageHR: 101bpm Rhythm : Tachycardia INDICATION Congestive Heart Failure RISK FACTORS Hypertension Hyperlipidemia Smoking 2D DIMENSIONS Left Atrium(2D)3.1 (1.6-4.0cm)IVSd1.0 (0.7-1.1cm) Aortic Root(2D)2.8 (2.0-3.7cm)LVDd3.7 (3.9-5.9cm) LVOT Diameter2.0 (1.8-2.4cm)PWd1.0 (0.7-1.1cm) LA Qsjbdv34 (18-58mL)LVDs1.9 (2.5-4.0cm) Mitral Valve MV E Velocity0.7cm/sMV DECEL [id number] MV A Velocity0.6cm/sE/A Ratio1.2 TDI E/Lateral E'11.4E/Medial E'6.2 Tricuspid Valve TR P. [id number]/sTR Peak Gr.36mmHg Pulmonary Vein S1 Smmcftpj68.0cm/sD2 Mzjcocoi35.0cm/s LEFT VENTRICLE The left ventricle is normal size. There is normal left ventricular wall thickness. The systolic func tion is moderately impaired. The Ejection Fraction is 40-45%. The mid to distal septum, distal anteri or wall and apex are akinetic. The remainder of the LV is mildly hypokinetic. Transmitral Doppler cirilo w pattern is Grade II-pseudonormal filling dynamics. No left ventricle thrombus noted on this study. There is no ventricular septal defect visualized. There is no left ventricular aneurysm. There is no mass noted in the left ventricle. RIGHT VENTRICLE The right ventricle is mildly dilated. There is normal right ventricular wall thickness. The right ve ntricular systolic function is normal. ATRIA The left atrium is borderline dilated. The right atrium is borderline dilated. The interatrial septum is intact with no evidence for an atrial septal defect or patent foramen ovale as noted on 2-D or Do ppler imaging. AORTIC VALVE The aortic valve is normal in structure and function. Doppler and Color Flow revealed no significant aortic regurgitation. There is no significant aortic valvular stenosis. There is no aortic valvular v egetation. MITRAL VALVE The mitral valve is normal in structure and function. There is no evidence of mitral valve prolapse. There is no mitral valve stenosis. Doppler and Color-flow revealed mild mitral regurgitation. TRICUSPID VALVE The tricuspid valve leaflets are thickened , but open well. Doppler and Color Flow revealed mild tric uspid regurgitation. The PA pressure was estimated at 50 mmHg. There is no tricuspid valve prolapse o r vegetation. There is no tricuspid valve stenosis. PULMONIC VALVE Doppler and Color Flow revealed no pulmonic valvular regurgitation. There is no pulmonic valvular modesta nosis. GREAT VESSELS The aortic root is normal in size. The ascending aorta is normal in size. The IVC is dilated with troy nted inspiratory response. PERICARDIAL EFFUSION Moderate sized pleural effusion noted. There is a small pericardial effusion without echocardiographi c evidence of tamponade. Critical Notification Critical Value: No <Conclusion> The systolic function is moderately impaired. The Ejection Fraction is 40-45%. The mid to distal septum, distal anterior wall and apex are akinetic. The remainder of the LV is mild ly hypokinetic. Doppler and Color Flow revealed mild tricuspid regurgitation. The PA pressure was estimated at 50 mmH g. The right ventricle is mildly dilated. Moderate sized pleural effusion noted. There is a small pericardial effusion without echocardiographic evidence of tamponade. Signed by : Vahid Khan, Electronically Approved : 11/10/2021 07:48:22
--- NOTE | 2021-11-10 08:45 | PDOC ---
Date of Service: DATE: 11/10/21 TIME: 08:42 Subjective: Subjective: Abdominal pain is "low." No n/v. Has stooled. Didn't eat much breakfast due to shortness of breath - not because of abdominal pain. Says might get to DC today. Objective: Vital Signs: Vital Signs Date Time Temp Pulse Resp B/P (MAP) Pulse Ox O2 Delivery O2 Flow Rate FiO2 11/10/21 07:15 91 Nasal Cannula 4.0 11/10/21 07:00 97.8 74 18 114/58 (76) 97.8 Labs: Laboratory Tests Test 11/09/21 15:25 Sodium Level 139 mmol/L Potassium Level 3.6 mmol/L Chloride Level 100 mmol/L Carbon Dioxide Level 29 mmol/L Anion Gap 10 Blood Urea Nitrogen 39 mg/dL Creatinine 1.7 mg/dL Estimated GFR (Cockcroft-Gault) 29.1 Glucose Level 127 mg/dL Calcium Level 9.0 mg/dL PE: GEN: NAD, thin LUNGS: diminished, NC 4L HEART: irregular ABD: soft, mildly tender left side NEURO/PSYCH: A & O 3 A/P: Acute resp failure, A Fib, MARTY, UTI Abdominal pain, weight loss, h/o mesenteric ischemia and pancreatitis COVID negative -- Better/stable GI-[facility]. Follow-up outpt w/ GI PRN, consider interval CTA. Would continue PPI. Justicifation of Admission Dx: Justifications for Admission: Justification of Admission Dx: Yes YANY ROSS Nov 10, 2021 08:45
[2021-11-10] MEDS: NICOTINE 21MG PATCH. TD SCH (08:48)
[2021-11-10] MEDS: FLUoxetine HCL 20 MG CAPSULE PO SCH (08:48)
[2021-11-10] MEDS: ASPIRIN ENTERIC COATED 81 MG TABLET.DR. PO SCH (08:48)
[2021-11-10] MEDS: LACTOBACILLUS RHAMNOSUS GG 1 CAPSULE. PO SCH (08:48)
[2021-11-10] MEDS: LIPASE/PROTEAS/AMYLAS 10/32/42 CAPSULE.DR. PO SCH (08:48)
[2021-11-10] MEDS: BENZONATATE 100 MG CAPSULE. PO SCH (08:48)
[2021-11-10] MEDS: methylPREDNISolone SOD SUCC PF 40 MG/ML VIAL. IV SCH (08:50)
[2021-11-10] MEDS ORDERED: METOPROLOL TART IMMED RELEASE 25 MG TABLET. PO SCH (09:00)
--- NOTE | 2021-11-10 10:28 | PDOC ---
PULMONARY PROGRESS NOTES DATE: 11/10/21 TIME: 10:24 Subjective Patient resting comfortably in bed this morning, currently on 4L via NC Reports feeling better today No longer on Cardizem drip 6 minute walk ordered to determine home O2 needs in preparation for discharge. Vitals Vital Signs Date Time Temp Pulse Resp B/P (MAP) Pulse Ox O2 Delivery O2 Flow Rate FiO2 11/10/21 08:50 74 114/58 11/10/21 08:00 Nasal Cannula 4.0 11/10/21 07:15 91 11/10/21 07:00 97.8 18 97.8 General: Alert, No acute distress Lungs: Other (Diminished breath sounds at the bases.) Cardiovascular: S1 Abdomen: Soft Neuro Exam: Alert Extremities: Other (1+ edema.) Labs Laboratory Tests Test 11/08/21 14:25 11/09/21 15:25 Triglycerides Level 75 mg/dL (0-150) Cholesterol Level 191 mg/dL (0-200) LDL Cholesterol, Calculated 118 mg/dL (0-100) VLDL Cholesterol, Calculated 15 mg/dL (0-40) Non-HDL Cholesterol Calculated 133 mg/dL (0-129) HDL Cholesterol 58 mg/dL (40-60) Cholesterol/HDL Ratio 3.3 Thyroid Stimulating Hormone (TSH) 1.383 uIU/mL (0.358-3.74) Sodium Level 139 mmol/L (136-145) Potassium Level 3.6 mmol/L (3.5-5.1) Chloride Level 100 mmol/L (98-107) Carbon Dioxide Level 29 mmol/L (21-32) Anion Gap 10 (6-14) Blood Urea Nitrogen 39 mg/dL (7-20) Creatinine 1.7 mg/dL (0.6-1.0) Estimated GFR (Cockcroft-Gault) 29.1 Glucose Level 127 mg/dL (70-99) Calcium Level 9.0 mg/dL (8.5-10.1) Laboratory Tests Test 11/09/21 15:25 Sodium Level 139 mmol/L (136-145) Potassium Level 3.6 mmol/L (3.5-5.1) Chloride Level 100 mmol/L (98-107) Carbon Dioxide Level 29 mmol/L (21-32) Anion Gap 10 (6-14) Blood Urea Nitrogen 39 mg/dL (7-20) Creatinine 1.7 mg/dL (0.6-1.0) Estimated GFR (Cockcroft-Gault) 29.1 Glucose Level 127 mg/dL (70-99) Calcium Level 9.0 mg/dL (8.5-10.1) Medications Active Scripts Medications Dose Route/Sig Max Daily Dose Days Date Category Fluoxetine Hcl 20 Mg Capsule 20 Mg PO DAILY 11/04/21 Reported Hydrocodone-Apap 7.5-325 (Hydrocodone Bit/Acetaminophen) 1 Tab Tablet 1 Tab PO PRN Q6HRS PRN 11/04/21 Reported Ativan (Lorazepam) 0.5 Mg Tablet 0.5 Mg PO PRN BID PRN 11/04/21 Reported Trelegy Ellipta 100-62.5-25 (Fluticasone/Umeclidin/Vilanter) 1 Each Blst.w.dev 1 Each IH DAILY 11/04/21 Reported Aspir 81 (Aspirin) 81 Mg Tablet.dr 81 Mg PO 06/06/[address] 36,000 Units Capsule (Lipase/Protease/Amylase) 1 Each Capsule.dr 2 Each PO TIDBFRMEAL 04/16/16 Reported Proair Hfa Inhaler (Albuterol Sulfate) 8.5 Gm Hfa.aer.ad 2 Puff IH BID 10/06/14 Reported Comments Chest x-ray reviewed 11/08/2021. Diffuse worsening interstitial edema and bilateral pleural effusions. Chest x-ray also reviewed 11/09/2021. Improving interstitial edema as well as pleural effusions. Impression . 1. Acute hypoxic respiratory failure with progressive worsening since hospitalization. This is secondary to combination of underlying severe chronic obstructive pulmonary disease, acute bronchitis and superimposed congestive heart failure from IV fluid hydration. 2. Suspected underlying severe chronic obstructive pulmonary disease. 3. Updated vaccination for COVID. 4. Abnormal CT chest with evidence of near complete atelectasis of the right middle lobe. Likely mucus plugging. Cannot exclude the possibility of endobronchial lesion. 5. Abnormal chest x-ray on 11/08 and 11/09 with diffuse interstitial edema and bilateral pleural effusions, improving with diuresis. 6. A. fib with RVR currently on Cardizem drip Plan . Updated 11/10/2021 Continue supplemental O2 at 4L NC, titrate as tolerated Continue antibiotics Continue IV Solu-Medrol Continue diuresis as needed Duonebs Cardizem drip discontinued 6 minute walk ordered to determine home O2 needs RECOMMENDATIONS: 1. Discussed with RN. Continue present nasal cannula. 2. Continue as needed diuresis. 3. Continue present antibiotics. 4. Management of atrial fibrillation per cardiology. Currently on Cardizem drip. 5. Continue with present IV Solu-Medrol. 6. DuoNebs./pulmicort 7. Follow renal function. ANA ROSA RODRIGUEZ MD Nov 10, 2021 10:28
--- NOTE | 2021-11-10 10:28 | PDOC ---
[facility] PROGRESS NOTE Date of Service DOS: DATE: 11/10/21 TIME: 10:24 Chief Complaint Chief Complaint Chronic COPD Chronic respiratory failure Acute on chronic systolic diastolic heart failure History of pancreatitis Gastrointestinal symptoms Azotemia Dehydration New opacification of her right middle lobe with concern for endobronchial mass Tobacco abuse Bronchitis Effusions A. fib with RVR . History of Present Illness History of Present Illness 11/10/2021 Patient seen and examined She seems to be at her baseline Alert oriented smiling Cardizem drip is off Seems to have good rate control with metoprolol I discussed the case with case management Discussed with RN Called pharmacy Chart reviewed Hope to discharge later today (patient would like to go straight home) 11/09/2021 Patient seen and examined She is doing better with the Solu-Medrol and breathing treatments and Lasix Discussed with RN Discussed with case management Chart reviewed 11/08, DR. Del Rio was called last night for resp distress, started Solumedrol, nebs given, pt still hypoxia this AM, 10 liters, consutl PULM, conslut CV, pt has BNP 6000 range, could be Cor pulmonale, COPD may be severe, FEV1 looks low on exam her son is here to discusss, prognosis may be poor 11/07, nasuea, burning, pain, weakness, she feels unwell and cannot DC today she says cont current consult GI, check KUB, give Pepcid, check lipase 11/06 Patient evaluated examined at bedside. Advance diet as tolerated. Was asking for solid food today. Improved diarrhea. Kidneys improving as well. If continued improvement plan for discharge in the morning. Jameson with bedside RN. Vitals/I&O Vitals/I&O: Vital Signs Date Time Temp Pulse Resp B/P (MAP) Pulse Ox O2 Delivery O2 Flow Rate FiO2 11/10/21 08:50 74 114/58 11/10/21 08:00 Nasal Cannula 4.0 11/10/21 07:15 91 11/10/21 07:00 97.8 18 97.8 I & O 11/09/21 11/09/21 11/10/21 15:00 23:00 07:00 Intake Total 300 ml 420 ml 100 ml Output Total 250 ml Balance 300 ml 420 ml -150 ml Physical Exam Physical Exam: thin an frail appearance, BMI 15 General: Alert, Oriented X3, Cooperative Heart: Other (Regular rate at 74 beats) Lungs: Clear, Other (Diminished but clear) Abdomen: Soft Extremities: No edema Skin: No significant lesion Labs Labs: Laboratory Tests Test 11/09/21 15:25 Sodium Level 139 mmol/L (136-145) Potassium Level 3.6 mmol/L (3.5-5.1) Chloride Level 100 mmol/L (98-107) Carbon Dioxide Level 29 mmol/L (21-32) Anion Gap 10 (6-14) Blood Urea Nitrogen 39 mg/dL (7-20) Creatinine 1.7 mg/dL (0.6-1.0) Estimated GFR (Cockcroft-Gault) 29.1 Glucose Level 127 mg/dL (70-99) Calcium Level 9.0 mg/dL (8.5-10.1) Assessment and Plan Assessmemt and Plan Problems Medical Problems: (1) Abdominal pain Status: Acute (2) MARTY (acute kidney injury) Status: Acute Chronic COPD Chronic respiratory failure Acute on chronic systolic diastolic heart failure History of pancreatitis Gastrointestinal symptoms Azotemia Dehydration New opacification of her right middle lobe with concern for endobronchial mass Tobacco abuse Bronchitis Effusions A. fib with RVR Plan Seems like she would be stable to go home if okay with consultants For now continue the following; Cardiac monitoring Negative chronotropic agents per cardiology (she is currently off the Cardizem drip and on p.o. metoprolol) COPD protocol Duo nebs Steroids Empiric antibiotics Oxygen Home meds DVT prophylaxis Full code Encourage p.o. intake PT OT Trend labs Hope to discharge later today on p.o. steroids, albuterol , p.o. antibiotics, Home oxygen, metoprolol (she does not want to go to [facility] and does not want home health) Comment Review of Relevant I have reviewed the following items vic (where applicable) has been applied. Medications: Current Medications Medications (Trade) Dose Ordered Sig/Tamiko Route PRN Reason Start Time Stop Time Status Last Admin Dose Admin Pantoprazole Sodium (Protonix) 40 mg DAILYAC PO 11/09/21 11:30 11/10/21 05:55 Metoprolol Tartrate (Lopressor) 25 mg BID PO 11/10/21 09:00 11/10/21 08:50 Justifications for Admission Other Justification CHANTALE DEL RIO III DO Nov 10, 2021 10:28
[2021-11-10] MEDS ORDERED: METO25TA4 PO (10:32)
[2021-11-10] MEDS ORDERED: BENZ-8 PO (10:32)
[2021-11-10] MEDS ORDERED: ALBU2.5V8 IH (10:32)
[2021-11-10] MEDS ORDERED: AMOX1TAB10 PO (10:32)
[2021-11-10] MEDS ORDERED: METH4TAB2 PO (10:32)
[2021-11-10] MEDS ORDERED: PANT40TA77 PO (10:32)
[2021-11-10 11:00] VITALS: BP 119/40
--- NOTE | 2021-11-10 11:05 | DS ---
DATE OF DISCHARGE: 11/10/2021 ADMITTING DIAGNOSES: 1. Abdominal pain, nausea, vomiting, diarrhea. 2. Pancreatitis. 3. Chronic obstructive pulmonary disease exacerbation. DISCHARGE DIAGNOSES: 1. Resolving gastrointestinal symptoms, suspect gastroenteritis. 2. Resolving respiratory failure with acute on chronic obstructive pulmonary disease exacerbation. 3. Resolving atrial fibrillation with rapid ventricular response (her current rate is at 77 beats per minute and she is on metoprolol). 4. Resolving azotemia. 5. Resolving dehydration. 6. New right middle lobe endobronchial mass noted on imaging. 7. History of tobacco abuse, bronchitis effusions. CONSULTS: Pulmonary Medicine, Cardiology and GI. PROCEDURES: None. HOSPITAL COURSE: The patient is a pleasant elderly female who presented with gastrointestinal symptoms with nausea, vomiting, diarrhea and abdominal pain. She was admitted and then developed respiratory failure. I placed her on steroids, breathing treatments, oxygen, empiric antibiotics. We consulted GI, Pulmonary and Cardiology. She also had AFib with RVR. Today, I saw and examined her. She is at her baseline, doing great, wants to go home. If okay with consultants, we plan to discharge with very close outpatient followup. DISPOSITION: Home. ACTIVITY: As tolerated. DIET: Low sodium. DISCHARGE MEDICATIONS: Please see the MRAD. 1. Medrol Dosepak. 2. Albuterol 2 puffs q. 6. 3. Augmentin 500 p.o. b.i.d. 4. P.r.n. Tessalon Perles. 5. Metoprolol 25 b.i.d. 6. Protonix 40 a day. 7. Aspirin 81 a day. 8. Prozac 20 a day. 9. Trelegy 100-62.5-25 one inhalation daily. 10. P.r.n. hydrocodone. 11. Creon 3600 units 2 capsules t.i.d. with meals. 12. Lorazepam 0.5 q. 6 hours p.r.n. Total time 36 minutes. ERIC/MIKAEL DR: ERIC/gabriella TID: [id number]
--- NOTE | 2021-11-10 11:18 | NUR ---
SS following up with discharge planning. SS reviewed pt chart and discussed with pt RN. Pt is currently requiring oxygen at four liters nasal canula. COVID19 negative. Pt on IV Solu-Medrol and IV Rocephin. Pt has no home oxygen. Discharge order on the chart for home with self care. Six minute walk ordered. SS will continue to follow for discharge planning. Addendum: 11/10/21 at 1349 by MIKE MAYNARD Script for oxygen received and phoned and faxed with clinical to [facility], . Oxygen tank provided to pt for home.
--- NOTE | 2021-11-10 12:19 | PDOC ---
CARDIO Progress Notes Date and Time Date of Service 11/10/2021 Time of Evaluation 1150 Subjective Subjective: No Chest Pain, No Palpitations, Other (SOA better) Vitals Vitals Vital Signs Date Time Temp Pulse Resp B/P (MAP) Pulse Ox O2 Delivery O2 Flow Rate FiO2 11/10/21 11:00 98.6 70 18 119/40 (66) 94 Nasal Cannula 5.0 98.6 Weight Weight [ ] Input and Output Intake and Output Intake and Output 11/10/21 07:00 Intake Total 820 ml Output Total 250 ml Balance 570 ml Intake Oral 820 ml Output Urine Total 250 ml Laboratory Labs Laboratory Tests Test 11/09/21 15:25 Sodium Level 139 mmol/L (136-145) Potassium Level 3.6 mmol/L (3.5-5.1) Chloride Level 100 mmol/L (98-107) Carbon Dioxide Level 29 mmol/L (21-32) Anion Gap 10 (6-14) Blood Urea Nitrogen 39 mg/dL (7-20) Creatinine 1.7 mg/dL (0.6-1.0) Estimated GFR (Cockcroft-Gault) 29.1 Glucose Level 127 mg/dL (70-99) Calcium Level 9.0 mg/dL (8.5-10.1) Microbiology Micro Microbiology 11/03/21 Urine Culture - Final, Complete Klebsiella Pneumoniae Physical Exam HEENT: Neck Supple W Full Motion Chest: Symmetric LUNGS: Other (basilar crackles) Heart: RRR (SR) Abdomen: Soft N/T Extremities: No Edema, No Calf Tenderness Neurology: alert, oriented, follow commands Assessment Assessment 1. Acute on chronic respiratory failure, multifactorial with COPD, CHF, bronchitis. ? endobronchial lesion. 2. Acute on chronic diastolic/systolic CHF: appears compensated 3. MARTY 4. Acute on chronic abdominal pain with history of pancreatitis 5. H/o mesenteric ischemia s/p celiac stent 6. Hypertension; controlled 7. Hyperlipidemia 8. UTI 9. Tobaccoism; discussed/encouraged cessation 10. AFIB RVR: rate controlled, new, now back in SR. 11. Cardiomyopathy: EF 40-45%.The mid to distal septum, distal anterior wall and apex are akinetic. The remainder of the LV is mildly hypokinetic. New finding Recommendations Start on metoprolol. DC cardizem drip Lasix PRN. BMP today. Future ACEi awaiting BMP Continue ASA. Will consider anticoagulation if she does not convert to SR and will consider for antiarrhythmic as well. Secondary prevention 6 Min walk [facility] and will ascertain afib burden and need for anticoagulation Justicifation of Admission Dx: Justifications for Admission: Justification of Admission Dx: Yes KAITY CASTRO APRN Nov 10, 2021 12:19
[2021-11-10 13:00] LABS: CALCIUM 9.1 mg/dL (8.5-10.1); CREATININE 1.7 mg/dL (0.6-1.0); GFR 29.1; POTASSIUM 3.4 mmol/L (3.5-5.1)
[2021-11-10] MEDS ORDERED: ATORVASTATIN CALCIUM 20 MG TABLET PO SCH (21:00)
== END 2021-11-10 15:10 | disposition home or self-care (01) | DRG 371 ==
LOC: ER 19:54 → ED HOLD 11-04 01:00 → 2 NORTH 11-04 02:04 → OBSVTOIN 11-05 21:26 → 4 NORTH 11-06 16:52 → 6 SOUTH 11-08 16:26
PROVIDERS: ADMIT Internal Medicine; ATTEND Internal Medicine
DX: A04.9 Bacterial intestinal infection, unspecified (principal); J96.21 Acute and chronic respiratory failure with hypoxia; N17.0 Acute kidney failure with tubular necrosis; I50.43 Acute on chronic combined systolic (congestive) and diastolic (congestive) heart failure; J96.22 Acute and chronic respiratory failure with hypercapnia; J98.11 Atelectasis; K86.1 Other chronic pancreatitis; N39.0 Urinary tract infection, site not specified; R64 Cachexia; Z68.1 Body mass index [BMI] 19.9 or less, adult; I42.9 Cardiomyopathy, unspecified; I11.0 Hypertensive heart disease with heart failure; I48.91 Unspecified atrial fibrillation; C55 Malignant neoplasm of uterus, part unspecified; E78.5 Hyperlipidemia, unspecified; E86.0 Dehydration; F17.210 Nicotine dependence, cigarettes, uncomplicated; G89.29 Other chronic pain; I70.0 Atherosclerosis of aorta; I73.9 Peripheral vascular disease, unspecified; J20.9 Acute bronchitis, unspecified; J43.9 Emphysema, unspecified; Z20.822 Contact with and (suspected) exposure to COVID-19; Z85.42 Personal history of malignant neoplasm of other parts of uterus; Z90.49 Acquired absence of other specified parts of digestive tract; Z90.710 Acquired absence of both cervix and uterus; F32.A Depression, unspecified; F41.9 Anxiety disorder, unspecified; M19.90 Unspecified osteoarthritis, unspecified site; B96.1 Klebsiella pneumoniae [K. pneumoniae] as the cause of diseases classified elsewhere
CPT/HCPCS: 36415; 71045; 71260; 74018; 74177; 80048; 80053; 80061; 81001; 83605; 83690; 83735; 83880; 84100; 84443; 84484; 85025; 85379; 87077; 87086; 87186; 87426; 93005; 93306; 94618; 94640; 94760; 96361; 96365; 96366; 96372; 96374; 96375; 99406; C9113; G0378; G0379; J0456; J0696; J1940; J2270; J2405; J2920; J3010; J3490; J7030; J7040; J7050; J7060; Q9966; U0003; 99285-25; C8929; J7613; J7626